=== PATIENT | female | born 1960 | race Caucasian/White ===

== ENCOUNTER → 2016-08-25 | Outpatient (CLI) | payer OTHER | LOC: CCC 08:55 | DX: E11.65 Type 2 diabetes mellitus with hyperglycemia (principal) | CPT/HCPCS: 36415; 83036 ==

== ENCOUNTER → 2017-06-10 | Outpatient (CLI) | payer OTHER ==
[2017-06-10 10:29] LABS: ABSOLUTE BASOPHILS # (AUTO) 0.1 10^3/uL (0.0-0.2); ABSOLUTE EOSINOPHILS # (AUTO) 0.2 10^3/uL (0.0-0.6); ABSOLUTE LYMPHOCYTES (AUTO) 1.6 10^3/uL (0.5-4.7); ABSOLUTE MONOCYTES (AUTO) 0.4 10^3/uL (0.1-1.4); ABSOLUTE NEUT (AUTO) 3.8 10^3/uL (1.7-8.2); BASOPHILS % (AUTO) 0.9 % (0-2); EOSINOPHILS % (AUTO) 2.7 % (0-6); HEMATOCRIT 38.6 % (36.0-47.0); HEMOGLOBIN 13.1 g/dL (12.0-15.5); MEAN CORPUSCULAR HEMOGLOBIN 31.7 pg (27.0-33.4); MEAN CORPUSCULAR HGB CONC 33.9 g/dL (32.0-36.0); MEAN CORPUSCULAR VOLUME 94 fl (80-97); MONOCYTES % (AUTO) 6.9 % (3-13); PLATELET COUNT 278 10^3/uL (150-450); RED BLOOD COUNT 4.13 10^6/uL (3.72-5.28); SEGMENTED NEUTROPHILS % (AUTO) 62.5 % (42-78); TOTAL CELLS COUNTED % (AUTO) 100 %; WHITE BLOOD COUNT 6.1 10^3/uL (4.0-10.5)
[2017-06-10 10:48] LABS: ALANINE AMINOTRANSFERASE 28 U/L (9-52); ALBUMIN 4.1 g/dL (3.5-5.0); ALKALINE PHOSPHATASE 104 U/L (38-126); ANION GAP 12 (5-19); ASPARTATE AMINO TRANSFERASE 27 U/L (14-36); BILIRUBIN,DIRECT 0.3 mg/dL (0.0-0.4); BILIRUBIN,TOTAL 0.3 mg/dL (0.2-1.3); BLOOD UREA NITROGEN 13 mg/dL (7-20); CALCIUM 10.4 mg/dL (8.4-10.2); CARBON DIOXIDE 31 mmol/L (22-30); CHLORIDE 101 mmol/L (98-107); CHOLESTEROL 247.63 mg/dL (0-200); GLUCOSE 247 mg/dL (75-110); SODIUM 144.1 mmol/L (137-145); TOTAL PROTEIN 7.1 g/dL (6.3-8.2); TRIGLYCERIDES 125 mg/dL (<150)
[2017-06-10 11:00] LABS: DIRECT LDL 132 mg/dL (<100)
== END ==
LOC: CCC 09:43
DX: R60.0 Localized edema (principal)
CPT/HCPCS: 36415; 80053; 80061; 83036; 84443; 85025

== ENCOUNTER 2017-10-10 16:40 | Emergency (ER) | payer SELFPAY ==
[2017-10-10 17:25] LABS: ABSOLUTE BASOPHILS # (AUTO) 0.1 10^3/uL (0.0-0.2); ABSOLUTE EOSINOPHILS # (AUTO) 0.1 10^3/uL (0.0-0.6); ABSOLUTE LYMPHOCYTES (AUTO) 1.8 10^3/uL (0.5-4.7); ABSOLUTE MONOCYTES (AUTO) 1.5 10^3/uL (0.1-1.4); ABSOLUTE NEUT (AUTO) 14.4 10^3/uL (1.7-8.2); BASOPHILS % (AUTO) 0.5 % (0-2); EOSINOPHILS % (AUTO) 0.5 % (0-6); HEMATOCRIT 39.8 % (36.0-47.0); HEMOGLOBIN 13.5 g/dL (12.0-15.5); MEAN CORPUSCULAR HEMOGLOBIN 32.3 pg (27.0-33.4); MEAN CORPUSCULAR HGB CONC 33.9 g/dL (32.0-36.0); MEAN CORPUSCULAR VOLUME 95 fl (80-97); MONOCYTES % (AUTO) 8.6 % (3-13); PLATELET COUNT 301 10^3/uL (150-450); RED BLOOD COUNT 4.19 10^6/uL (3.72-5.28); RED CELL DISTRIBUTION WIDTH 13.2 % (11.5-14.0); SEGMENTED NEUTROPHILS % (AUTO) 80.4 % (42-78); TOTAL CELLS COUNTED % (AUTO) 100 %; WHITE BLOOD COUNT 17.9 10^3/uL (4.0-10.5)
[2017-10-10 17:36] LABS: ALANINE AMINOTRANSFERASE 19 U/L (9-52); ALBUMIN 4.4 g/dL (3.5-5.0); ALKALINE PHOSPHATASE 107 U/L (38-126); ANION GAP 16 (5-19); ASPARTATE AMINO TRANSFERASE 21 U/L (14-36); BILIRUBIN,DIRECT 0.4 mg/dL (0.0-0.4); BILIRUBIN,TOTAL 0.4 mg/dL (0.2-1.3); BLOOD UREA NITROGEN 22 mg/dL (7-20); CALCIUM 10.2 mg/dL (8.4-10.2); CARBON DIOXIDE 26 mmol/L (22-30); CHLORIDE 97 mmol/L (98-107); CREATINE KINASE 61 U/L (30-135); GLUCOSE 161 mg/dL (75-110); POTASSIUM 3.5 mmol/L (3.6-5.0); SODIUM 138.8 mmol/L (137-145)
[2017-10-10 17:48] LABS: CREATINE KINASE MB 1.13 ng/mL (<4.55); TROPONIN I < 0.012 ng/mL
--- NOTE | 2017-10-10 18:14 | ER Document Report ---
ED Fall - General Chief Complaint: Fall Stated Complaint: FALL, RIGHT HIP PAIN Time Seen by Provider: 10/10/17 18:11 Notes: Patient has fallen twice today. She has been having problems controlling her blood sugar. Today, she was feeling dizzy and nauseated with blurred vision fell about 1:30 PM, injuring her left foot where she heard the bones "crackle". She then tried to walk with some crutches and fell a second time about 3:30 this afternoon. Patient's blood sugars were running in the 490-500 range during the times that her falling was occurring. She denies any chest pains, shortness of breath, head injury, neurologic deficits or loss of consciousness, etc. EMS was called to the scene where they checked her blood sugar and said it was 134 at about 4:30 PM this afternoon. Currently, patient complains of pain in her left hip and her left foot. TRAVEL OUTSIDE OF THE [place] IN LAST 30 DAYS: No - Related data Allergies/Adverse Reactions: No Known Allergies Allergy (Unverified 10/10/17 17:09) Past Medical History - Social History Smoking Status: Current Every Day Smoker Chew tobacco use (# tins/day): No Family History: Reviewed & Not Pertinent Patient has suicidal ideation: No Patient has homicidal ideation: No - Past Medical History Cardiac Medical History: Reports: Hx Hypercholesterolemia, Hx Hypertension Pulmonary Medical History: Reports: Hx COPD Past Surgical History: Reports: Hx Appendectomy Review of Systems - Review of Systems Notes: REVIEW OF SYSTEMS: CONSTITUTIONAL : Denies fever. EENT: Denies eye, ear, nose or mouth or throat pain or other symptoms. CARDIOVASCULAR: Denies chest pain. RESPIRATORY: Denies cough, chest congestion, or shortness of breath. GASTROINTESTINAL: Denies abdominal pain or nausea, vomiting, or diarrhea. GENITOURINARY: Denies difficulty or painful urinating, urinary frequency, blood in urine. MUSCULOSKELETAL: Denies back or neck pain. Complains of pain in the left hip and in the left ankle and left foot. Unable to bear weight on the left lower extremity because of pain. SKIN: Denies rash or skin lesions. NEUROLOGICAL: Denies LOC or altered mental status. Denies sensory loss or motor deficits. ALL OTHER SYSTEMS REVIEWED AND NEGATIVE. Physical Exam - Vital signs Vitals: Resp BP Pulse Ox 15 117/56 L 98 10/10/17 16:50 10/10/17 16:50 10/10/17 16:50 Interpretation: Normal Notes: PHYSICAL EXAMINATION: GENERAL: Well-appearing, in no acute distress. Has had 75 mics of fentanyl by EMS. Vital signs were all essentially normal. HEAD: Atraumatic, normocephalic. EYES: Pupils equal round and reactive to light, extraocular movements intact. ENT: oropharynx clear without exudates. Moist mucous membranes. NECK: Normal range of motion, supple. LUNGS: Breath sounds clear and equal bilaterally. No rib tenderness. HEART: Regular rate and rhythm without murmurs. ABDOMEN: Soft, nontender. No guarding or rebound. No masses. BACK: No tenderness throughout entire back. EXTREMITIES: Tender to palpate over the left hip joint, though no malalignment or dislocation noted. Tender with some bruising over the lateral aspect of the left lower leg which is where patient appears to have a nondisplaced fracture of the distal fibula on x-ray. NEUROLOGICAL: Normal speech. Unable to ambulate because of pain. Normal sensory, motor, and reflex exams. Awake, alert, and oriented x3. Cranial nerves normal. PSYCH: Normal mood, normal affect. SKIN: Warm, dry, no rashes. Course - Vital Signs Vital signs: Temp Pulse Resp BP Pulse Ox 97.6 F 16 114/55 L 95 10/10/17 18:00 10/10/17 19:01 10/10/17 19:00 10/10/17 19:01 - Laboratory Result Diagrams: 10/10/17 16:51 10/10/17 16:51 Laboratory results interpreted by me: 10/10/17 10/10/17 16:51 16:51 WBC 17.9 H Seg Neutrophils % 80.4 H Lymphocytes % 10.0 L Absolute Neutrophils 14.4 H Absolute Monocytes 1.5 H Potassium 3.5 L Chloride 97 L BUN 22 H Creatinine 1.58 H Est GFR ( Amer) 41 L Est GFR (Non-Af Amer) 33 L Glucose 161 H Discharge - Discharge Clinical Impression: Fall, Fracture of distal fibula Condition: Stable Disposition: HOME, SELF-CARE Additional Instructions: Fracture of Distal Fibula You have a fracture at the end of the fibula, the smaller bone in the lower leg. The fracture is across the bony bump on the outer side of the ankle. This fracture will usually heal well, but must be protected from the pull of ligaments and tendons at the ankle. If this fracture rotates out of position (or is felt likely to rotate), it must be operated on. Initially, the extremity should be kept elevated, with ice packs applied frequently. This fracture is usually treated with a cast or walking boot. If a walking boot has been selected, it's critical that it NOT be removed without the doctor's approval, not even for sleeping or baths. Healing of this fracture takes about four to eight weeks. Younger patients heal more quickly. An X-ray is usually required during healing to check for complications and to assess healing. Call the doctor or return at once if there is severe swelling, increasing pain, or numbness in the foot. ANKLE STIRRUP SPLINT: You are to use an ankle brace called a stirrup splint. This type of brace allows you to place greater stresses on the ankle without risk of re-injury, and is often used for more severe ankle injuries such as avulsion fractures and ligament ruptures. The splint can be worn over a sock or tape. For proper support, wear the splint with a shoe over it. It's important that the splint fit properly. Adjust the heel tension, if needed. If your splint has air bladders, peel back the bottom of each air bladder, then move the Velcro attachment of the heel strap up or down. Air bladder pressure can be adjusted by pulling up the valve at the top, threading the air tube down into the main bladder, then blowing air into the bladder or squeezing it out. The two sides of the stirrup can be moved forward or back on your ankle by changing the attachment of the main straps. If you are unable to use the ankle comfortably in the splint, return for re -evaluation. USE OF CRUTCHES: The doctor has recommended that you not bear weight at this time. You will need to use crutches. Adjust the crutches so the tops come to about two inches under the armpit while you are standing upright. Use your hands -- not your armpits -- to support your weight. To get into a chair, support yourself with one crutch on the injured side. Hold the chair with the other hand, then lower yourself while putting all your weight on the good leg. Going up stairs is `good leg up, step up, then bring up crutches and bad leg.' Down stairs is `bad leg and crutches down, then bring good leg down.' If you develop numbness or swelling in an arm or hand, you are using the crutches incorrectly. Return if you are having any problems with the crutches. ICE & ELEVATION: Apply ice packs frequently against the painful area. Many different schedules are recommended, such as "20 minutes on, 20 minutes off" or "one hour ice, two hours rest." If you need to work, you may need to go longer between ice treatments. You should plan to have the area ice packed AT LEAST one- fourth of the time. The ice should be applied over the wrap, tape, or splint, or over a layer of cloth -- not directly against the skin. Some ice bags have a built-in cloth and can be put directly on the skin. Your injured part should be elevated as much as possible over the next 48 hours. Try to keep the injury above the level of the heart. Avoid use of the injured area. Elevation and rest will decrease the swelling. ORAL NARCOTIC MEDICATION: You have been given a prescription for pain control. This medication is a narcotic. It's best taken with food, as nausea can result if taken on an empty stomach. Don't operate machinery or drive within six hours of taking this medication. Do not combine this medicine with alcohol, or with any medication which can cause sedation (such as cold tablets or sleeping pills) unless you get permission from the physician. Narcotics tend to cause constipation. If possible, drink plenty of fluids and eat a diet high in fiber and fruits. FOLLOW-UP CARE: If you have been referred to a physician for follow-up care, call the physician s office for an appointment as you were instructed or within the next two days. If you experience worsening or a significant change in your symptoms, notify the physician immediately or return to the Emergency Department at any time for re-evaluation. You have been referred to Dr. Sousa and Dr. Pena and their contact information is located elsewhere in these discharge instructions. Call their office Wednesday at 8:00 and set up an appointment for you to follow-up with them because this fracture of your ankle will require casting to properly treated. Prescriptions: Oxycodone HCl/Acetaminophen [Percocet 5-325 mg Tablet] 1 - 2 tab PO Q6HP PRN # 15 tablet PRN Reason: Referrals: EMILIANO PENA MD [ACTIVE STAFF] - Follow up in 3-5 days MYAH SOUSA DO [ACTIVE STAFF] - Follow up in 3-5 days
--- NOTE | 2017-10-10 18:19 | RADIOLOGY REPORT (SQ) ---
EXAM DESCRIPTION: ANKLE LEFT COMPLETE; FOOT LEFT COMPLETE; HIP LEFT AP/LATERAL COMPLETED DATE/TIME: 10/10/2017 5:44 pm REASON FOR STUDY: Fell on left side, heart left foot, ankle, hip COMPARISON: None. FINDINGS: Three views left hip: No fracture. Symmetric bilateral hip DJD. Three views left ankle: Nondisplaced oblique fracture through the distal fibula extends inferiorly t o the level of the mortise. Mortise maintained. No other fracture. Three views left foot: Osteopenia. No fracture. TECHNICAL DOCUMENTATION: JOB ID: [id number] Reading location - IP/workstation name: [email or web address]
--- NOTE | 2017-10-10 18:19 | RADIOLOGY REPORT (SQ) ---
EXAM DESCRIPTION: ANKLE LEFT COMPLETE; FOOT LEFT COMPLETE; HIP LEFT AP/LATERAL COMPLETED DATE/TIME: 10/10/2017 5:44 pm REASON FOR STUDY: Fell on left side, heart left foot, ankle, hip COMPARISON: None. FINDINGS: Three views left hip: No fracture. Symmetric bilateral hip DJD. Three views left ankle: Nondisplaced oblique fracture through the distal fibula extends inferiorly t o the level of the mortise. Mortise maintained. No other fracture. Three views left foot: Osteopenia. No fracture. TECHNICAL DOCUMENTATION: JOB ID: [id number] Reading location - IP/workstation name: [email or web address]
--- NOTE | 2017-10-10 18:19 | RADIOLOGY REPORT (SQ) ---
EXAM DESCRIPTION: ANKLE LEFT COMPLETE; FOOT LEFT COMPLETE; HIP LEFT AP/LATERAL COMPLETED DATE/TIME: 10/10/2017 5:44 pm REASON FOR STUDY: Fell on left side, heart left foot, ankle, hip COMPARISON: None. FINDINGS: Three views left hip: No fracture. Symmetric bilateral hip DJD. Three views left ankle: Nondisplaced oblique fracture through the distal fibula extends inferiorly t o the level of the mortise. Mortise maintained. No other fracture. Three views left foot: Osteopenia. No fracture. TECHNICAL DOCUMENTATION: JOB ID: [id number] Reading location - IP/workstation name: [email or web address]
[2017-10-10] MEDS ORDERED: HYDROCODONE/ACETAMINOPHEN 5-325 MG (6 TAB/ER DISP) PO PRN (18:47)
--- NOTE | 2017-10-10 19:09 | EKG REPORT ---
SEVERITY:- NORMAL ECG - SINUS RHYTHM : Confirmed by: Jomar Lane MD 10-Oct-2017 19:08:36
[2017-10-10 19:19] VITALS: BP 114/55
== END 2017-10-10 19:28 | disposition home or self-care (01) ==
LOC: ER 16:40
DX: S82.435A Nondisplaced oblique fracture of shaft of left fibula, initial encounter for closed fracture (principal); M79.672 Pain in left foot; M25.552 Pain in left hip; W19.XXXA Unspecified fall, initial encounter; F17.200 Nicotine dependence, unspecified, uncomplicated; I10 Essential (primary) hypertension; J44.9 Chronic obstructive pulmonary disease, unspecified
CPT/HCPCS: 93005; 99284; 36415; 82553; 82550; 85025; 80053; 84484; 73610; 73630; 73502; 93010; L1902

== ENCOUNTER 2018-01-29 12:27 | Emergency (ER) | payer SELFPAY ==
[~2018-01-29 12:27] MED LIST: ATROPINE SULFATE INJ 1 MG/10 ML DISP.SYRIN IV ONE; EPINEPHRINE INJ 1 MG/10 ML DISP.SYRIN ONE; SODIUM BICARBONATE 8.4% INJ 50 MEQ/50 ML DISP.SYRIN ONE
[2018-01-29] MEDS ORDERED: INSULIN REG, HUMAN 100 UNIT/ML 3 ML VIAL (PYX) ONE (12:42)
[2018-01-29] MEDS ORDERED: MIDAZOLAM HCL 50 MG/100 ML RTUINJ ONE (12:42)
--- NOTE | 2018-01-29 12:46 | ER Document Report ---
ED Resuscitation - General Mode of Arrival: Medic Information source: Emergency Med Personnel, [facility] Records Cannot obtain history due to: Unstable vital signs, Other - unresponsive TRAVEL OUTSIDE OF THE [place] IN LAST 30 DAYS: No <MARY WALKER - Last Filed: 01/29/18 19:45> <[email or web address] - Last Filed: 01/29/18 20:06> - General Stated Complaint: UNRESPONSIVE Time Seen by Provider: 01/29/18 12:27 Notes: 57-year-old female brought in by EMS for a 3-day history of vomiting and diarrhea. EMS states on arrival the patient had a blood pressure of 63/38, a heart rate in the 30s, a BGL reading "high", a rectal temperature of 85.3, and a GCS of 10. EMS states that the patient was rolling around and spontaneously opening her eyes but did not answer questions or respond to them. EMS states that the family at the house stated that the patient has been in bed for the last few days and "they thought she just had the flu". EMS states the patient was lying in bed urine and stool. EMS states in route to this facility the patient began to jean down and then became pulseless and compressions were started. EMS reports no Ventricular tachycardia or ventricular fibrillation. History is limited secondary to the patient's medical condition. (MARY WALKER) - Related Data Allergies/Adverse Reactions: No Known Allergies Allergy (Unverified 10/10/17 17:09) Past Medical History - General Information source: Emergency Med Personnel, [facility] Records Cannot obtain history due to: Unstable vital signs - Social History Smoking Status: Current Every Day Smoker Cigarette use (# per day): Yes Family History: Other - unknown - Past Medical History Cardiac Medical History: Reports: Hx Hypercholesterolemia, Hx Hypertension Pulmonary Medical History: Reports: Hx COPD Past Surgical History: Reports: Hx Appendectomy <MARY WALKER - Last Filed: 01/29/18 19:45> Review of Systems - Review of Systems -: Yes ROS unobtainable due to patient's medical condition <MARY WALKER - Last Filed: 01/29/18 19:45> Physical Exam <MARY WALKER - Last Filed: 01/29/18 19:45> - Vital signs Vitals: Resp Pulse Ox 36 H 95 01/29/18 12:28 01/29/18 12:28 - Notes Notes: PHYSICAL EXAM GENERAL: Completely unresponsive. Being manually bagged with mechanical c ompressions being performed upon arrival. Smells ketotic and of urine. HEAD: Normocephalic, atraumatic. EYES: Fixed and dilated. ENT: Dry oral mucosa. Edentulous. NECK: Trachea midline. LUNGS: Being manually bagged on arrival to ED, breath sounds bilaterally with bagging. HEART: Asystole. Mechanical compressions actively being performed. ABDOMEN: Non-distended. EXTREMITIES: No spontaneous movements. NEUROLOGICAL: GCS of 3. SKIN: Cold to the touch, dry. No rashes or lesions noted. PHYSICAL EXAM #2 performed after intubation with ROSC GENERAL: Making purposeful movements, attempting to grab ET tube with right arm. HEAD: Normocephalic, atraumatic. EYES: Equal, round, and reactive to light. ENT: Dry oral mucosa. Edentulous. NECK: Trachea midline. LUNGS: On ventilator with intermittent independent respiratory efforts. Breath sounds are clear bilaterally. HEART: Irregularly irregular. Very faint heart sounds. ABDOMEN: Non-distended. Decreased bowel sounds. EXTREMITIES: Making purposeful movements, attempting to grab ET tube with right arm. NEUROLOGICAL: E-2 V-T M-5 GCS = 7T SKIN: Cold to the touch, dry.. No rashes or lesions noted. (MARY WALKER) Course - Laboratory Result Diagrams: 01/29/18 15:53 01/29/18 12:32 <MARY WALKER - Last Filed: 01/29/18 19:45> - Laboratory Result Diagrams: 01/29/18 15:53 01/29/18 12:32 <ZAY CLIFTON - Last Filed: 01/29/18 20:06> - Re-evaluation Re-evalutation: 01/29/18 14:37 Spoke to the roofing tile sorter at [facility], Dr. High and he wants a temporary pacer put in prior to transport. States this would be an ICU patient. Dr. Syed was called, he agrees to put the pacer in if we could put the cordis in. Spoke to Dr. Boone who agrees to put the cordis in. Spoke to Dr. Blas Stone, the roofing tile sorter at [facility] who accepted the patient to his service. Will hold off on transfer until pacer is placed. at bedside has been made aware of all of this. (MARY WALKER) 01/29/18 15:54 Patient was being brought in as an altered mental status with hypothermia however upon arriving in the parking lot the patient lost pulses, EMS states that she bradycardia down and then went into an asystolic arrest. CPR was immediately started by EMS, the patient was brought inside where we continued CPR and gave her epinephrine, when we paused for a pulse check we could not feel a pulse however she did have some agonal respirations, carotid pulse was rechecked and she was found to have a pulse, initial intubation 10 attempt was unsuccessful, patient was then then bradycardia down and lost pulses, CPR was restarted, more epinephrine was given as was atropine, patient then had another pulse check performed after approximately 3 minutes and intubation was successful this time, patient did have a pulse. Levophed drip was started, patient was given some additional epinephrine for blood pressure support and heart rate support. Core temp was found to be quite low at approximately 82, bear hugger was placed, patient was started on a Versed drip for sedation. Labs were unfortunately hemolyzed several times, venous blood gas showed a pH of 6.6, lactic acid was surprisingly normal, chemistry still have not resulted back nor has the CBC, labs at bedside presently drawing, femoral central line was placed for better access, she also has 2 IVs and an IO, urinalysis shows greater than 500 glucose and 20 of ketones as well as moderate blood, 1+ bacteria as well as budding yeast, this was a cath specimen. Chest x-ray shows the ET tube is in good position, without any acute intrathoracic abnormality. Patient became progressively more bradycardic, patient was given atropine and transcutaneous pacing was started, capture was lost after some time at 70 mA so we increased to 80 mA, at this point I did call [facility] to try and arrange transfer to [facility] as I suspect the patient will likely need a permanent pacemaker although her bradycardia may well resolve when her electrolyte abnormalities resolve. Discussed with Dr. Muro as noted above, he wants a transvenous temporary pacer placed, Dr. Perez placed the pacer, Dr. Leone placed a Cordis, there were no complications. Supervisor [employer] Assembly at [facility] Dr. Blas Stone has already accepted the patient, helicopter is in route for this critically ill patient. has been apprised of the situation and the various procedures. 01/29/18 15:56 Vasopressin was added off of Dr. Perez's recommendation, Dr. Syed also added dopamine to the patient's pressor regimen. 01/29/18 20:05 This is a late entry, I was at bedside when the helicopter crew arrived, gave them signout on the patient and report on the patient, patient was transitioned over to helicopter crew equipment without difficulty. 01/29/18 20:06 Transvenous pacemaker was placed without difficulty by Dr. Perez. (ZAY CLIFTON) - Vital Signs Vital signs: Temp Pulse Resp BP Pulse Ox 90.6 F L 74 24 H 87/49 L 100 01/29/18 16:10 01/29/18 13:03 01/29/18 16:10 01/29/18 16:10 01/29/18 16:04 - Laboratory Laboratory results interpreted by me: 01/29/18 01/29/18 01/29/18 13:23 13:45 13:51 MCV MCHC RDW Band Neutrophils % PT 16.9 H Carbonic Acid ABG pH ABG pCO2 ABG pO2 ABG HCO3 ABG Total CO2 ABG O2 Saturation VBG pH 6.60 L* VBG HCO3 3.8 L Urine Protein 100 H Urine Glucose (UA) >=500 H Urine Ketones 20 H Urine Blood MODERATE H 01/29/18 01/29/18 14:36 15:53 MCV 105 H MCHC 30.9 L RDW 14.4 H Band Neutrophils % 7 H PT Carbonic Acid 0.90 L ABG pH 6.66 L* ABG pCO2 29.8 L ABG pO2 492.6 H ABG HCO3 3.3 L ABG Total CO2 4.2 L ABG O2 Saturation 99.5 H VBG pH VBG HCO3 Urine Protein Urine Glucose (UA) Urine Ketones Urine Blood Procedures - Central Line Left Femoral Consent obtained: No - unresponsive, intubated Central line pre-insertion: Sterile PPE donned, Chloraprep applied, Sterile drapes applied Central line size (Fr.): 20 Central line lumen type: Triple Ultrasound guided: Yes CM at insertion site: 18 Line secured with sutures: Yes Central line post-insertion: Blood return from lumens, Biopatch applied, Sutured, Sterile dressing applied Number of attempts: 1 Complications: No - Intubation Orotracheal Airway evaluation: Normal anatomy Intubation method: Orotracheal Blade type: Oscar Blade size: 4 ETT size: 8.0 ETT secured at: Gums ETT secured at (cm): 21 Breath Sounds after Intubation: Equal End tidal CO2 confirmed: Yes Ventilator settings: SIMV Tidal volume: 450 FiO2: 100 Respirations: 18 Pressure support: 8 PEEP: 10] Post Intubation Xray: Yes Intubation Complications: Oral-unsuccessful attempt. No: Vomited, Apparent aspiration <ZAY CLIFTON - Last Filed: 01/29/18 20:06> - Intubation Orotracheal Notes: 01/29/18 16:12 Initial attempt with a 4 Terrell was unsuccessful, second attempt with a 4 MAC was successful. (ZAY CLIFTON) Critical Care Note - Critical Care Note Total time excluding time spent on procedures (mins): 120 <ZAY CLIFTON - Last Filed: 01/29/18 20:06> Discharge <MARY WALKER - Last Filed: 01/29/18 19:45> <ZAY CLIFTON - Last Filed: 01/29/18 20:06> - Discharge Clinical Impression: Cardiac arrest, Septic shock, Asystole, Encounter for management of temporary cardiac pacemaker, Mechanical capture of ventricle after temporary pacing, Vomiting and diarrhea, Acidosis Hypothermia Qualifiers: Encounter type: initial encounter Qualified Code(s): T68.XXXA - Hypothermia, initial encounter Hyperglycemia due to type 2 diabetes mellitus Qualifiers: Diabetes mellitus correction insulin use: with correction use Qualified Code(s): E11.65 - Type 2 diabetes mellitus with hyperglycemia Condition: Critical Disposition: [facility] Referrals: [facility] [Primary Care Provider] - Follow up as needed Scribe Attestation: 01/29/18 20:06 I personally performed the services described in the documentation, reviewed and edited the documentation which was dictated to the scribe in my presence, and it accurately records my words and actions. (ZAY CLIFTON) Scribe Documentation - Scribe Written by Scribe:: Jaren Dickens, 01/29/2018 [id number] acting as scribe for :: Yazmin <MARY WALKER - Last Filed: 01/29/18 19:45>
[2018-01-29] MEDS ORDERED: ATROPINE SULFATE INJ 1 MG/1 ML VIAL ONE (12:57)
--- NOTE | 2018-01-29 13:10 | RADIOLOGY REPORT (SQ) ---
EXAM DESCRIPTION: CHEST SINGLE VIEW COMPLETED DATE/TIME: 01/29/2018 12:59 pm REASON FOR STUDY: INTUBATED COMPARISON: 09/13/2013 EXAM PARAMETERS: NUMBER OF VIEWS: 1 TECHNIQUE: Single frontal radiographic view of the chest acquired. RADIATION DOSE: NA LIMITATIONS: None. FINDINGS: LUNGS AND PLEURA: No opacities, masses or pneumothorax. No pleural effusion. MEDIASTINUM AND HILAR STRUCTURES: No masses. Contour normal. HEART AND VASCULAR STRUCTURES: Heart normal in size. Normal vasculature. BONES: No acute findings. HARDWARE: None in the chest. OTHER: Endotracheal tube is positioned below the thoracic inlet. Defibrillator pads are applied abou t the chest. IMPRESSION: Endotracheal tube is positioned with tip below the thoracic inlet. No acute abnormality of the lungs in AP projection. TECHNICAL DOCUMENTATION: JOB ID: [id number] [employer]- All Rights Reserved Reading location - IP/workstation name: [email or web address]
[2018-01-29] MEDS ORDERED: PIPERACILLIN/TAZOBACTAM 4.5 GM VIAL IV ONE (13:25)
[2018-01-29 13:46] LABS: VENOUS BLOOD BASE EXCESS -34.4 mmol/L; VENOUS BLOOD HCO3 3.8 mmol/L (20-32); VENOUS BLOOD PCO2 39.3 mmHg (35-63)
[2018-01-29 13:50] LABS: VENOUS BLOOD PH 6.6 (7.30-7.42)
[2018-01-29 14:03] LABS: INTERNATIONAL RATION (INR) 1.31; PROTHROMBIN TIME 16.9 SEC (11.4-15.4)
[2018-01-29 14:36] LABS: APPEARANCE,URINE TURBID; BILIRUBIN,URINE NEGATIVE (NEGATIVE); COLOR,URINE YELLOW; GLUCOSE, URINE >=500 mg/dL (NEGATIVE); KETONES,URINE 20 mg/dL (NEGATIVE); LEUKOCYTE ESTERASE,URINE NEGATIVE (NEGATIVE); NITRITE,URINE NEGATIVE (NEGATIVE); PROTEIN,URINE 100 mg/dL (NEGATIVE); URINE SPECIFIC GRAVITY 1.016; UROBILINOGEN,URINE NEGATIVE mg/dL (<2.0)
[2018-01-29] MEDS ORDERED: PHENYLEPHRINE HCL INJ/PF 10 MG/1 ML SDV ONE (14:40)
[2018-01-29] MEDS ORDERED: DOPAMINE HCL/DEXTROSE 5%-WATER 800 MG/250 ML RTUINJ IV ONE (14:43)
[2018-01-29] MEDS ORDERED: NOREPINEPHRINE BITARTRATE INJ/PF 4 MG/4 ML SDV IV ONE (14:52)
--- NOTE | 2018-01-29 15:29 | Operative Report ---
Nonrecallable Operative Report DATE OF SURGERY: 01/29/18 PREOPERATIVE DIAGNOSIS: Life-threatening arrhythmia, need for central venous access to place pacemaker. POSTOPERATIVE DIAGNOSIS: Same as above OPERATION: 1. Ultrasound-guided central venous puncture. 2. Right internal jugular vein 6 Pakistani vascular access sheath placement. SURGEON: FERCHO YUEN ANESTHESIA: Local TISSUE REMOVED OR ALTERED: None COMPLICATIONS: None apparent ESTIMATED BLOOD LOSS: Minimal PROCEDURE: Drains/implants: 6 Pakistani vascular access sheath in the right internal jugular vein. Procedure in detail: After informed consent was obtained from the patient's family she was laid in the Trendelenburg position in the ER. The right internal jugular vein was identified with the ultrasound device. It was compressible with normal flow. Under direct ultrasonic guidance a vascular access needle was inserted into the lumen of the right internal jugular vein. Dark venous, nonpulsatile blood was returned in the syringe. The wire was inserted into the vein. The wire was confirmed to be within the lumen of the vein using the ultrasound device. Next a 6 Pakistani vascular access sheath was inserted into the vein, over the wire, using a modified Seldinger technique. The catheter was sutured to the skin. The catheter was aspirated and flushed easily. The catheter returned dark venous, nonpulsatile blood. The procedure was then handed over to Dr. Perez, who was preparing to introduce a pacemaker. Condition: Critical.
[2018-01-29] MEDS ORDERED: DEXTROSE 5%-WATER 250 ML with VASOPRESSIN 100 UNIT IV PRN ×2 (15:43)
[2018-01-29] MEDS ORDERED: VASOPRESSIN INJ 20 UNIT/1 ML VIAL ONE (15:43)
[2018-01-29] MEDS ORDERED: NORMAL SALINE 1000 ML 1,000 ML IV ONE (15:50)
[2018-01-29] MEDS ORDERED: NORMAL SALINE 1000 ML 1,000 ML IV PRN (15:50)
[2018-01-29 15:58] LABS: HEMATOCRIT 42.6 % (36.0-47.0); HEMOGLOBIN 13.2 g/dL (12.0-15.5); MEAN CORPUSCULAR HEMOGLOBIN 32.4 pg (27.0-33.4); MEAN CORPUSCULAR HGB CONC 30.9 g/dL (32.0-36.0); MEAN CORPUSCULAR VOLUME 105 fl (80-97); PLATELET COUNT 179 10^3/uL (150-450); RED BLOOD COUNT 4.06 10^6/uL (3.72-5.28); RED CELL DISTRIBUTION WIDTH 14.4 % (11.5-14.0); WHITE BLOOD COUNT 9.9 10^3/uL (4.0-10.5)
[2018-01-29 16:14] LABS: ABSOLUTE LYMPHOCYTES# (MANUAL) 2.3 10^3/uL (0.5-4.7); ABSOLUTE MONOCYTES # (MANUAL) 0.5 10^3/uL (0.1-1.4); ABSOLUTE NEUTROPHILS# (MANUAL) 7.1 10^3/uL (1.7-8.2); BAND NEUTROPHILS % (MANUAL) 7 % (3-5); BASOPHILS % (MANUAL) 0 % (0-2); EOSINOPHILS % (MANUAL) 0 % (0-6); LYMPHOCYTES % (MANUAL) 23 % (13-45); MONOCYTES % (MANUAL) 5 % (3-13); SEGMENTED NEUTROPHILS % (MAN) 65 % (42-78); TOTAL CELLS COUNTED 100
[2018-01-29 16:15] LABS: PLATELET COMMENT ADEQUATE
[2018-01-29 16:16] VITALS: BP 87/49
[2018-01-29 16:52] LABS: ARTERIAL BLOOD BASE EXCESS -33.1 mmol/L; ARTERIAL BLOOD HCO3 3.3 mmol/L (20-24); ARTERIAL BLOOD O2 SATURATION 99.5 % (94-98); ARTERIAL BLOOD PCO2 29.8 mmHg (35-45); ARTERIAL BLOOD PO2 492.6 mmHg (80-100); ARTERIAL BLOOD TOTAL CO2 4.2 mmol/L (21-25)
[2018-01-29 16:53] LABS: ARTERIAL BLOOD FIO2 100%
[2018-01-29 16:54] LABS: ARTERIAL BLOOD PH 6.66 (7.35-7.45)
[2018-01-29] MEDS ORDERED: PROPOFOL 1,000 MG/100 ML INFUS..BTL IV ONE (16:58)
--- NOTE | 2018-01-29 20:09 | Progress Note ---
Provider Note Provider Note: CARDIOLOGY PROCEDURE NOTE by Dr. Amisha Perez on 01/29/2018. REASON FOR PROCEDURE: Emergent temporary transvenous pacemaker placement requested by the ER physician, for the patient who is status post cardiac arrest, with the hypotension, and symptomatic bradycardia on external pacer. Temporary transvenous pacemaker requested to stabilize the patient in route to transfer to [facility]. Tissue Removed: None. Blood Loss: None. PROCEDURE: 5 Jordanian balloon pacemaker catheter introduction into the right ventricle under the guidance of fluoroscopy. VIDEO NETWORK ENGINEER: Dr. Amisha Perez. PROCEDURE: Although it was an emergency, the was at the bedside, and informed consent was obtained from him explaining the risks and benefits of temporary transvenous pacemaker placement. The risk of being vascular trauma, perforation of the heart, arrhythmias, need for CPR, and infection. The benefit was stabilizing the patient in transport to a tertiary care facility. The verbalizes understanding. A 6 Jordanian sheath was floated by Dr. Leone, the surgical list, with aseptic technique and sterile precautions. Through this 6 Jordanian sheath, a 5 Jordanian balloon tipped pacemaker electrode catheter was floated into the RV under fluoroscopic guidance. There was good capture with the capture being lost to the MA of less than 1. This sheath and the pacemaker electrodes were sutured in place and dressing applied. The temporary transvenous pacemaker was placed at a rate of 70 bpm, with a MA of 3, and a asynchronous mode, since the patient had no underlying rhythm. The external pacemaker was discontinued at the point when the temporary transvenous pacemaker started functioning well. SUCCESSFUL placement of transvenous temporary pacemaker placement. Review of the chest showed that there was no pneumothorax by fluoroscopy, and the pacemaker was in good placement in the right ventricle. Note that the patient initially was on 16 mcg/min of of Levophed. Her blood pressure was in the 80 systolic, and dropped dopamine at 5 mcg/kg/min and increased to 10 mcg/kg/min. Also recommended starting the patient on vasopressin. Discussed with the ER physician Dr. Arce. Note 15 minutes spent on this patient for placement of the temporary transvenous pacemaker after the 6 Jordanian sheath was placed by Dr. Leone.
--- NOTE | 2018-01-30 08:12 | RADIOLOGY REPORT (SQ) ---
EXAM DESCRIPTION: FLUORO/CV PLACEMENT COMPLETED DATE/TIME: 01/29/2018 7:39 pm REASON FOR STUDY: SEPSIS, DKA TRAUMA 1 COMPARISON: None. FLUOROSCOPY TIME: 2.5 3 images saved to PACS. TECHNIQUE: Intra-operative images acquired during surgical procedure to evaluate progress. NUMBER OF IMAGES: 3 LIMITATIONS: None. FINDINGS: Cv placement. IMPRESSION: IMAGE(S) OBTAINED DURING PROCEDURE. COMMENT: Quality ID [id number]: Final reports for procedures using fluoroscopy that document radiation exp osure indices, or exposure time and number of fluorographic images (if radiation exposure indices are not available) Please consult full operative report of the attending physician for description of the procedure. TECHNICAL DOCUMENTATION: JOB ID: [id number] [employer]- All Rights Reserved Reading location - IP/workstation name: [email or web address]
--- NOTE | 2018-01-31 13:30 | EKG REPORT ---
SEVERITY:- ABNORMAL ECG - ATRIAL FIBRILLATION RUN OF VENTRICULAR PREMATURE COMPLEXES vs artifacts IVCD REC REPEAT EKG : Confirmed by: Phoebe Mccracken 31-Jan-2018 13:29:58
== END 2018-01-29 16:18 | disposition short-term general hospital (02) ==
LOC: ER 12:27
DX: A41.9 Sepsis, unspecified organism (principal); R65.21 Severe sepsis with septic shock; T68.XXXA Hypothermia, initial encounter; I46.9 Cardiac arrest, cause unspecified; E11.65 Type 2 diabetes mellitus with hyperglycemia; Z79.4 Long term (current) use of insulin; R11.10 Vomiting, unspecified; R19.7 Diarrhea, unspecified; I10 Essential (primary) hypertension; J44.9 Chronic obstructive pulmonary disease, unspecified; F17.210 Nicotine dependence, cigarettes, uncomplicated
CPT/HCPCS: 31500; 36556; 93005; 99291; 99292; 92950; 51702; 96365; 96366; 96368; 36415; 87040; 87086; 82962; 82803 ×2; 85025; 85610; 87088; 81001; 83605; 71045; 77001; 94660; 93010; C1751; C1894; J0461; J1265; J0171; J3490 ×2; 51701; 94002; 96375

== ENCOUNTER → 2018-02-17 | Outpatient (CLI) | payer MEDICAID ==
[2018-02-17 09:21] LABS: APPEARANCE,URINE SLIGHTLY-CLOUDY; BILIRUBIN,URINE NEGATIVE (NEGATIVE); COLOR,URINE YELLOW; GLUCOSE, URINE 50 mg/dL (NEGATIVE); KETONES,URINE NEGATIVE (NEGATIVE); LEUKOCYTE ESTERASE,URINE NEGATIVE (NEGATIVE); NITRITE,URINE NEGATIVE (NEGATIVE); PROTEIN,URINE NEGATIVE (NEGATIVE); URINE SPECIFIC GRAVITY 1.013; UROBILINOGEN,URINE NEGATIVE mg/dL (<2.0)
[2018-02-19 09:33] LABS: HEMATOCRIT 26.8 % (36.0-47.0); HEMOGLOBIN 9.1 g/dL (12.0-15.5); MEAN CORPUSCULAR HEMOGLOBIN 33.1 pg (27.0-33.4); PLATELET COUNT 593 10^3/uL (150-450); RED BLOOD COUNT 2.75 10^6/uL (3.72-5.28); RED CELL DISTRIBUTION WIDTH 15.2 % (11.5-14.0); WHITE BLOOD COUNT 4.7 10^3/uL (4.0-10.5)
[2018-02-19 09:41] LABS: MEAN CORPUSCULAR VOLUME 97 fl (80-97)
[2018-02-19 09:58] LABS: ANION GAP 7 (5-19); BLOOD UREA NITROGEN 10 mg/dL (7-20); CALCIUM 9.8 mg/dL (8.4-10.2); CARBON DIOXIDE 26 mmol/L (22-30); CHLORIDE 108 mmol/L (98-107); GLUCOSE 130 mg/dL (75-110); POTASSIUM 4.7 mmol/L (3.6-5.0); SODIUM 140.5 mmol/L (137-145)
== END ==
LOC: OD 08:09
PROVIDERS: ATTEND Internal Medicine Nephrology
DX: N18.4 Chronic kidney disease, stage 4 (severe) (principal)
CPT/HCPCS: 36415; 80048; 81001; 85027

== ENCOUNTER 2018-02-23 12:01 | Emergency (ER) | payer MEDICAID ==
--- NOTE | 2018-02-23 13:05 | ER Document Report ---
ED Medical Screen (RME) - General Chief Complaint: Foot Pain Stated Complaint: TOES ON RIGHT FOOT DISCOLORED Time Seen by Provider: 02/23/18 12:57 Notes: 4-year-old female to the emergency department for evaluation of abnormal coloring of several digits on the right foot. Patient is a type I diabetic. Recent DKA and life support. Began noticing changes to her digits several days ago. Foot is extremely swollen. I have greeted and performed a rapid initial assessment of this patient. A comprehensive ED assessment and evaluation of the patient, analysis of test results and completion of the medical decision making process will be conducted by additional ED providers. TRAVEL OUTSIDE OF THE [place] IN LAST 30 DAYS: No - Related Data Allergies/Adverse Reactions: No Known Allergies Allergy (Verified 02/23/18 12:02) Past Medical History - Past Medical History Cardiac Medical History: Reports: Hx Hypercholesterolemia, Hx Hypertension Pulmonary Medical History: Reports: Hx COPD Renal/ Medical History: Denies: Hx Peritoneal Dialysis Past Surgical History: Reports: Hx Appendectomy Physical Exam - Vital signs Vitals: Temp Pulse Resp BP Pulse Ox 98.2 F 107 H 18 140/63 H 100 02/23/18 12:09 02/23/18 12:09 02/23/18 12:09 02/23/18 12:09 02/23/18 12:09 Course - Vital Signs Vital signs: Temp Pulse Resp BP Pulse Ox 98.2 F 107 H 18 140/63 H 100 02/23/18 12:09 02/23/18 12:09 02/23/18 12:09 02/23/18 12:09 02/23/18 12:09 Doctor's Discharge - Discharge Referrals: Jignesh SIMMONS MD [Primary Care Provider] - Follow up as needed
--- NOTE | 2018-02-23 14:01 | RADIOLOGY REPORT (SQ) ---
EXAM DESCRIPTION: FOOT RIGHT COMPLETE COMPLETED DATE/TIME: 02/23/2018 1:38 pm REASON FOR STUDY: isch digits , forefoot pain and swelling COMPARISON: None. NUMBER OF VIEWS: Three views. TECHNIQUE: AP, lateral and oblique radiographic images acquired of the right foot. LIMITATIONS: None. FINDINGS: MINERALIZATION: Osteopenic BONES: Acute spiral fracture, nondisplaced, nonangulated right 5th toe proximal phalanx mid diaphysis marked with a seneca. No other fractures are identified. No aggressive bony demineralization worrisome for osteomyelitis. JOINTS: No malalignment SOFT TISSUES: Diffuse forefoot soft tissue swelling. No foreign body. OTHER: No other significant finding. IMPRESSION: Acute spiral fracture nondisplaced nonangulated, right 5th toe proximal phalanx mid diap hysis TECHNICAL DOCUMENTATION: JOB ID: [id number]- All Rights Reserved Reading location - IP/workstation name: [email or web address]
[2018-02-23 14:33] LABS: ABSOLUTE EOSINOPHILS # (AUTO) 0.3 10^3/uL (0.0-0.6); ABSOLUTE LYMPHOCYTES (AUTO) 1.4 10^3/uL (0.5-4.7); ABSOLUTE MONOCYTES (AUTO) 0.3 10^3/uL (0.1-1.4); BASOPHILS % (AUTO) 0.4 % (0-2); EOSINOPHILS % (AUTO) 6.2 % (0-6); HEMATOCRIT 30.9 % (36.0-47.0); HEMOGLOBIN 10.4 g/dL (12.0-15.5); LYMPHOCYTES % (AUTO) 27.6 % (13-45); MEAN CORPUSCULAR HGB CONC 33.6 g/dL (32.0-36.0); MEAN CORPUSCULAR VOLUME 98 fl (80-97); MONOCYTES % (AUTO) 6.2 % (3-13); PLATELET COUNT 550 10^3/uL (150-450); RED BLOOD COUNT 3.14 10^6/uL (3.72-5.28); RED CELL DISTRIBUTION WIDTH 15.7 % (11.5-14.0); SEGMENTED NEUTROPHILS % (AUTO) 59.6 % (42-78); TOTAL CELLS COUNTED % (AUTO) 100 %
[2018-02-23 14:55] LABS: ALANINE AMINOTRANSFERASE 25 U/L (9-52); ALBUMIN 4.4 g/dL (3.5-5.0); ALKALINE PHOSPHATASE 177 U/L (38-126); ANION GAP 8 (5-19); ASPARTATE AMINO TRANSFERASE 24 U/L (14-36); BILIRUBIN,DIRECT 0.2 mg/dL (0.0-0.4); BILIRUBIN,TOTAL 0.3 mg/dL (0.2-1.3); BLOOD UREA NITROGEN 11 mg/dL (7-20); C-REACTIVE PROTEIN 13.5 mg/L (<10.0); CALCIUM 10.4 mg/dL (8.4-10.2); CARBON DIOXIDE 28 mmol/L (22-30); CHLORIDE 102 mmol/L (98-107); GLUCOSE 203 mg/dL (75-110); POTASSIUM 4.5 mmol/L (3.6-5.0); SODIUM 137.9 mmol/L (137-145); TOTAL PROTEIN 7.2 g/dL (6.3-8.2)
[2018-02-23] MEDS ORDERED: ONDANSETRON HCL INJ/PF 4 MG/2 ML SDV IV ONE (17:47)
[2018-02-23] MEDS ORDERED: FENTANYL CITRATE INJ/PF 100 MCG/2 ML AMPUL IV ONE (17:47)
[2018-02-23] MEDS ORDERED: HYDROMORPHONE HCL INJ/PF 2 MG/ML AMPULE IV ONE (18:55)
[2018-02-23] MEDS ORDERED: VANCOMYCIN HCL INJ 1000 MG VIAL IV ONE (18:55)
[2018-02-23] MEDS ORDERED: PIPERACILLIN/TAZOBACTAM 3.375 GM VIAL IV ONE (18:55)
--- NOTE | 2018-02-23 20:34 | ER Document Report ---
ED Extremity Problem, Lower - General Chief Complaint: Foot Pain Stated Complaint: TOES ON RIGHT FOOT DISCOLORED Time Seen by Provider: 02/23/18 12:57 Notes: Patient is a 58-year-old female with uncontrolled diabetes and hypertension hyperlipidemia, that presents to the emergency department for chief complaint of right toe pain. Patient states that several of her toes on her right foot have been turning blue and black over the last several weeks, has been getting worse, she was discharged from another institution 3 weeks ago, she was rather ill at that time, was in the ICU, for DKA, and what sounds like possible cardiac problems and was on pressors. She states she noticed that her toes were painful towards the end of her discharge, and they were treated with local wound care, while at home, things seem to get worse, but she did not seek medical attention until today. She describes the pain she is having a severe aching sensation that is constant in her second through fourth toes. Of the right foot, she is not exactly sure when they started to turn black. She is overall a poor historian. She denies any any redness streaking up her leg, denies fevers, chills, nausea, vomiting, chest pain, shortness of breath or difficulty breathing. Past Medical History: Uncontrolled diabetes, hyperlipidemia, hypertension Past Surgical History: Denies recent or pertinent surgical history Social History: Admits to smoking cigarettes daily, denies alcohol or drug use. Family History: Reviewed and noncontributory for presenting illness Allergies: Reviewed, see documented allergy list. REVIEW OF SYSTEMS: Other than noted above, the 12 point review of systems was reviewed with the patient and were negative, all pertinent findings are included in the HPI. PHYSICAL EXAMINATION: Vital signs reviewed, nursing noted reviewed. GENERAL: Patient appears older than stated age, and uncomfortable HEAD: Atraumatic, normocephalic. EYES: Eyes appear normal, extraocular movements intact, sclera anicteric, conjunctiva are normal. ENT: nares patent, oropharynx clear without exudates. Moist mucous membranes. NECK: Normal range of motion, supple without lymphadenopathy LUNGS: Breath sounds clear to auscultation bilaterally and equal. No wheezes rales or rhonchi. HEART: Regular rate and rhythm without murmurs ABDOMEN: Soft, nontender, normoactive bowel sounds. No rebound, guarding, or rigidity. No masses appreciated. EXTREMITIES: The right second and third toes, appear necrotic, and dry gangrene of the distal portions, and are otherwise erythematous and tender to palpate more proximally, the fourth right toe, is erythematous, there is an open wound on the dorsal aspect, and is also tender to palpate. She has palpable popliteal pulses, there are palpable PT pulses as well, and DP pulses, and seem to be equal bilaterally. No significant peripheral edema in either extremity. Sensation is absent over the areas of necrosis. NEUROLOGICAL: Moves all extremities spontaneously Motor and sensory grossly intact on exam, with the exception of the very distal portions where the patient has dry gangrene of the tips of the second and third digits of the right foot. PSYCH: Normal mood, normal affect. SKIN: Warm, Dry, normal turgor, no rashes or lesions noted on exposed skin TRAVEL OUTSIDE OF THE [place] IN LAST 30 DAYS: No - Related Data Allergies/Adverse Reactions: No Known Allergies Allergy (Verified 02/23/18 12:02) Past Medical History - Social History Smoking Status: Current Every Day Smoker Frequency of alcohol use: None Drug Abuse: None Family History: CAD, Malignancy, Other - unknown Patient has suicidal ideation: No Patient has homicidal ideation: No - Past Medical History Cardiac Medical History: Reports: Hx Hypercholesterolemia, Hx Hypertension Pulmonary Medical History: Reports: Hx COPD Endocrine Medical History: Reports: Hx Diabetes Mellitus Type 1 Renal/ Medical History: Denies: Hx Peritoneal Dialysis Past Surgical History: Reports: Hx Appendectomy Physical Exam - Vital signs Vitals: Temp Pulse Resp BP Pulse Ox 98.2 F 107 H 18 140/63 H 100 02/23/18 12:09 02/23/18 12:09 02/23/18 12:09 02/23/18 12:02/23/18 12:09 Course - Re-evaluation Re-evalutation: Patient seen and examined vital signs reviewed. Laboratory data and imaging were ordered as appropriate for the patient's presenting symptoms and complaint, with consideration of any critical or life threatening conditions that may be associated with their obtained history and exam as noted above. Patient was treated with IV pain medication fluid, and was given a dose of Zosyn and vancomycin Results were reviewed when available and demonstrated x-ray demonstrated a fracture of the fifth digit of the right toe, but otherwise unremarkable, blood work did not demonstrate acute renal failure, there is a mild anemia, which appears to be chronic for this patient, but otherwise was unremarkable, I feel that the patient is suffering from dry gangrene, possibly from thromboembolic event, versus secondary to pressors that she was on while in the hospital and in the ICU, did consult surgery to evaluate this, they were concerned about possible thromboembolism as well, and was concerned that an amputation of the toes would not solve that issue, and should ultimately be seen by vascular surgeon, I called the vascular surgeon, that works at the hospital where the patient was seen in the ICU, Dr. Terrazas, who stated he could see the patient in the office, for further workup, I advised the patient to be started on aspirin, which she is agreeable. The patient was re-evaluated and was stable, and discharged to follow-up with an appointment tomorrow with the vascular surgeon, she was encouraged highly to not miss this appointment. Evaluation was most consistent with gangrene of the toes of the right foot Results were discussed with the patient at this point, after careful consideration I feel that that patient can be discharged from the emergency d epartment, the patient was educated treatments and reasons to return to the emergency department based on their presumed diagnosis as noted above, they were advised to followup with a primary care physician in 2-3 days. Patient was agreeable to plan of care. *Note is created using voice recognition software and may contain spelling, syntax or grammatical errors. Laboratory 02/23/18 02/23/18 02/23/18 14:05 14:05 19:42 WBC 5.0 RBC 3.14 L Hgb 10.4 L Hct 30.9 L MCV 98 H MCH 33.0 MCHC 33.6 RDW 15.7 H Plt Count 550 H Seg Neutrophils % 59.6 Lymphocytes % 27.6 Monocytes % 6.2 Eosinophils % 6.2 H Basophils % 0.4 Absolute Neutrophils 3.0 Absolute Lymphocytes 1.4 Absolute Monocytes 0.3 Absolute Eosinophils 0.3 Absolute Basophils 0.0 Sodium 137.9 Potassium 4.5 Chloride 102 Carbon Dioxide 28 Anion Gap 8 BUN 11 Creatinine 0.48 L Est GFR ( Amer) > 60 Est GFR (Non-Af Amer) > 60 Glucose 203 H POC Glucose 236 H Calcium 10.4 H Total Bilirubin 0.3 Direct Bilirubin 0.2 Neonat Total Bilirubin Not Reportable Neonat Direct Bilirubin Not Reportable Neonat Indirect Bili Not Reportable AST 24 ALT 25 Alkaline Phosphatase 177 H C-Reactive Protein 13.5 H Total Protein 7.2 Albumin 4.4 Foot X-Ray 02/23/18 13:06 IMPRESSION: Acute spiral fracture nondisplaced nonangulated, right 5th toe proximal phalanx mid diaphysis - Vital Signs Vital signs: Temp Pulse Resp BP Pulse Ox 98.2 F 105 H 18 133/67 H 97 02/23/18 22:33 02/23/18 22:33 02/23/18 22:33 02/23/18 22:33 02/23/18 22:33 - Laboratory Result Diagrams: 02/23/18 14:05 02/23/18 14:05 Laboratory results interpreted by me: 02/23/18 02/23/18 02/23/18 14:05 14:05 19:42 RBC 3.14 L Hgb 10.4 L Hct 30.9 L MCV 98 H RDW 15.7 H Plt Count 550 H Eosinophils % 6.2 H Creatinine 0.48 L Glucose 203 H POC Glucose 236 H Calcium 10.4 H Alkaline Phosphatase 177 H C-Reactive Protein 13.5 H Critical Care Note - Critical Care Note Total time excluding time spent on procedures (mins): 34 Comments: Critical care time 34 minutes exclusive from separate billable procedures for a patient requiring complex medical decision making, and high potential for clinical deterioration. In a patient with gangrene of several toes on the right foot, multiple consultations, and frequent reassessments, and evaluations, and acute treatment, with high potential of loss of limb. Time spent obtaining history from patient or surrogate, discussions with consultants, development of treatment plan with patient or surrogate, evaluation of patient's response to treatment, examination of patient, ordering and performing treatments and interventions, ordering and review of laboratory studies, re-evaluation of patient's condition, ordering and review of radiographic studies and review of old charts Discharge - Discharge Clinical Impression: Gangrene of toe of right foot Anemia Qualifiers: Anemia type: unspecified type Qualified Code(s): D64.9 - Anemia, unspecified Fracture of fifth toe, right, closed Qualifiers: Encounter type: initial encounter Qualified Code(s): S92.501A - Displaced unspecified fracture of right lesser toe(s), initial encounter for closed fracture Condition: Stable Disposition: HOME, SELF-CARE Additional Instructions: You have what we call gangrene of the foot, in your toes, you need to follow-up with the vascular surgeon, you may need an amputation of your foot, but you need to be evaluated with them, Dr. Terrazas will see you tomorrow in his office, you need to call in the morning, to schedule a time that is convenient for you, their phone number is listed with the paperwork, as well as the address to the office. Please do not miss this appointment, it is very important that you follow-up with them, as this could get worse and potentially cause more issues up your foot and into the leg. Referrals: Jignesh SIMMONS MD [Primary Care Provider] - Follow up as needed REEMA TERRAZAS MD [NO LOCAL MD] - Follow up tomorrow
--- NOTE | 2018-02-23 20:40 | PDOC CONSULTATION ---
Consultation Consult Date: 02/23/18 Consult reason:: right toes wet gangrene History of Present Illness Admission Date/PCP: Jignesh SIMMONS MD Patient complains of: REDNESS, DARKENING OF RIGHT TOES History of Present Illness: ISRAEL DIA is a 58 year old female diabetic, with severe cardia disease, s/p cardiac arrest for unknown reason in January 2018, tansferred to [facility] after her cardiac events (for possible pacemaker placement) who comes with a c/o right toes (2, 3, 4) redness, drainage, skin blistering, and skin black discoloration. According to the patient, these toe skin changes have occurred since she was released from the outside institution with worsening of the toe appearance while at home. She denies any pain fever, or other systemic symptoms. Past Medical History Cardiac Medical History: Reports: Hyperlipidema, Hypertension Pulmonary Medical History: Reports: Chronic Obstructive Pulmonary Disease (COPD) Endocrine Medical History: Reports: Diabetes Mellitus Type 1 Past Surgical History Past Surgical History: Reports: Appendectomy Social History Smoking Status: Current Every Day Smoker Family History Family History: CAD, Malignancy, Other - unknown Parental Family History Reviewed: Yes Children Family History Reviewed: Yes Sibling(s) Family History Reviewed.: Yes Medication/Allergy Home Medications: Oxycodone HCl/Acetaminophen [Percocet 5-325 mg Tablet] 1 - 2 tab PO Q6HP PRN #15 tablet 10/10/17 Allergies/Adverse Reactions: No Known Allergies Allergy (Verified 02/23/18 12:02) Physical Exam Vital Signs: Temp Pulse Resp BP Pulse Ox 98.2 F 108 H 18 146/72 H 98 02/23/18 12:09 02/23/18 19:53 02/23/18 19:53 02/23/18 19:53 02/23/18 19:53 Intake & Output 02/22/18 02/23/18 02/24/18 06:59 06:59 06:59 Weight 65 kg General appearance: PRESENT: no acute distress Head exam: PRESENT: atraumatic Eye exam: PRESENT: EOMI Mouth exam: PRESENT: dry mucosa, neck supple Neck exam: PRESENT: full ROM Respiratory exam: PRESENT: clear to auscultation jesusita Cardiovascular exam: PRESENT: RRR Vascular exam: PRESENT: other - palpable right DP, foot warm GI/Abdominal exam: PRESENT: soft Rectal exam: PRESENT: deferred Extremities exam: PRESENT: full ROM, other - right staecy 2, 3,and 4 toes with erythema, blistering, and necrosis of skin of tip of 2nd toe; partial skin gangrene 3rd toe, blistering and ulceration 4th toe. No erythema of the foot (volar/dorsal surface) Musculoskeletal exam: PRESENT: full ROM Neurological exam: PRESENT: alert, altered Results Laboratory Results: 02/23/18 14:05 02/23/18 14:05 02/23/18 02/23/18 14:05 14:05 WBC 5.0 RBC 3.14 L Hgb 10.4 L Hct 30.9 L MCV 98 H MCH 33.0 MCHC 33.6 RDW 15.7 H Plt Count 550 H Seg Neutrophils % 59.6 Lymphocytes % 27.6 Monocytes % 6.2 Eosinophils % 6.2 H Basophils % 0.4 Absolute Neutrophils 3.0 Absolute Lymphocytes 1.4 Absolute Monocytes 0.3 Absolute Eosinophils 0.3 Absolute Basophils 0.0 Sodium 137.9 Potassium 4.5 Chloride 102 Carbon Dioxide 28 Anion Gap 8 BUN 11 Creatinine 0.48 L Est GFR ( Amer) > 60 Est GFR (Non-Af Amer) > 60 Glucose 203 H Calcium 10.4 H Total Bilirubin 0.3 AST 24 ALT 25 Alkaline Phosphatase 177 H C-Reactive Protein 13.5 H Total Protein 7.2 Albumin 4.4 Impressions: Foot X-Ray 02/23/18 13:06 IMPRESSION: Acute spiral fracture nondisplaced nonangulated, right 5th toe proximal phalanx mid diaphysis Assessment & Plan - Diagnosis (1) Gangrene of toe of right foot Is this a current diagnosis for this admission?: Yes - Plan Summary Plan Summary: A/ 2,3,and 4 right toe gangrene, cellulitis with blistering slowly occurring during past 3-4 weeks Xray right foot shows acute fracture 5th toe, without signs of osteomyelitis severe CAD with hx of previous cardiac arrest x 3 4 weeks ago (patient transfe rred to [facility] for possible pacemaker placement; however, this was never implanted) P/ due to the appearance of the three toe skin changes and gangrene and the timing of occurrence it is likely that these injuries are consequence of an arterial thromboembolic event originating most likely from a more proximal larger vessel such as abdominal aorta, Iliac artery, or femoral artery. This pathology will require evaluation and treatment to be done in a facility with Vascular Surgery and Interventional Radiology capabilities both are not available at out hospital. Therefore, transfer to such a facility seems appropriate.
[2018-02-23] MEDS ORDERED: HYDROCODONE/ACETAMINOPHEN 5-325 MG (6 TAB/ER DISP) PO PRN (21:44)
[2018-02-23 23:06] VITALS: BP 133/67
== END 2018-02-23 22:35 | disposition home or self-care (01) ==
LOC: ER 12:01
DX: E10.52 Type 1 diabetes mellitus with diabetic peripheral angiopathy with gangrene (principal); I96 Gangrene, not elsewhere classified; M79.674 Pain in right toe(s); D64.9 Anemia, unspecified; I10 Essential (primary) hypertension; F17.210 Nicotine dependence, cigarettes, uncomplicated; J44.9 Chronic obstructive pulmonary disease, unspecified; Z86.74 Personal history of sudden cardiac arrest
CPT/HCPCS: 99285; 96375; 96365; 96367; 36415; 82962; 85025; 86140; 80053; 73630; J3010; J1170; J2405; J3370; J2543

== ENCOUNTER 2018-03-04 06:05 | Emergency (ER) | payer SELFPAY ==
[2018-03-04 06:58] LABS: ABSOLUTE LYMPHOCYTES (AUTO) 0.6 10^3/uL (0.5-4.7); ABSOLUTE MONOCYTES (AUTO) 0.5 10^3/uL (0.1-1.4); ABSOLUTE NEUT (AUTO) 9.6 10^3/uL (1.7-8.2); BASOPHILS % (AUTO) 0.3 % (0-2); EOSINOPHILS % (AUTO) 0.1 % (0-6); HEMATOCRIT 30.8 % (36.0-47.0); HEMOGLOBIN 10.4 g/dL (12.0-15.5); LYMPHOCYTES % (AUTO) 5.4 % (13-45); MEAN CORPUSCULAR HEMOGLOBIN 32.3 pg (27.0-33.4); MEAN CORPUSCULAR HGB CONC 33.6 g/dL (32.0-36.0); MEAN CORPUSCULAR VOLUME 96 fl (80-97); MONOCYTES % (AUTO) 4.8 % (3-13); PLATELET COUNT 190 10^3/uL (150-450); RED BLOOD COUNT 3.21 10^6/uL (3.72-5.28); RED CELL DISTRIBUTION WIDTH 13.9 % (11.5-14.0); SEGMENTED NEUTROPHILS % (AUTO) 89.4 % (42-78); TOTAL CELLS COUNTED % (AUTO) 100 %; WHITE BLOOD COUNT 10.7 10^3/uL (4.0-10.5)
[2018-03-04] MEDS ORDERED: NORMAL SALINE 1000 ML 1,000 ML IV PRN (07:10)
[2018-03-04] MEDS ORDERED: ONDANSETRON HCL INJ/PF 4 MG/2 ML SDV IV ONE (07:10)
[2018-03-04] MEDS ORDERED: DICYCLOMINE HCL INJ 20 MG/2 ML AMPULE IM ONE (07:10)
[2018-03-04 07:30] LABS: ALANINE AMINOTRANSFERASE 20 U/L (9-52); ALBUMIN 3.1 g/dL (3.5-5.0); ALKALINE PHOSPHATASE 101 U/L (38-126); ANION GAP 7 (5-19); ASPARTATE AMINO TRANSFERASE 16 U/L (14-36); BILIRUBIN,DIRECT 0.3 mg/dL (0.0-0.4); BILIRUBIN,TOTAL 0.3 mg/dL (0.2-1.3); BLOOD UREA NITROGEN 12 mg/dL (7-20); CALCIUM 8.8 mg/dL (8.4-10.2); CARBON DIOXIDE 23 mmol/L (22-30); CHLORIDE 104 mmol/L (98-107); GLUCOSE 300 mg/dL (75-110); LIPASE 46.1 U/L (23-300); POTASSIUM 3.8 mmol/L (3.6-5.0); SODIUM 134.4 mmol/L (137-145); TOTAL PROTEIN 5.7 g/dL (6.3-8.2)
--- NOTE | 2018-03-04 08:28 | RADIOLOGY REPORT (SQ) ---
EXAM DESCRIPTION: ACUTE ABDOMEN SERIES COMPLETED DATE/TIME: 03/04/2018 8:10 am REASON FOR STUDY: abd pain n/v/d COMPARISON: None. NUMBER OF VIEWS: Three views. TECHNIQUE: Frontal chest, supine abdomen and upright/decubitus abdomen radiographic images acquired. LIMITATIONS: None. FINDINGS: CHEST: Lungs clear of infiltrates. FREE AIR: None. No abnormal gas collections. BOWEL GAS PATTERN: Nonobstructive pattern. No dilated loops or air fluid levels. CALCIFICATIONS: No suspicious calcifications. HARDWARE: None in the abdomen. SOFT TISSUES: No gross mass or suggestion of organomegaly. BONES: No acute fracture. No worrisome bone lesions. OTHER: No other significant finding. IMPRESSION: Nonobstructive pattern of bowel gas with gas and stool present to the rectum. No free a ir in the abdomen. No acute abnormality of the lungs. TECHNICAL DOCUMENTATION: JOB ID: [id number] [employer]- All Rights Reserved Reading location - IP/workstation name: [email or web address]
[2018-03-04] MEDS ORDERED: ACETAMINOPHEN 325 MG TABLET PO ONE (09:56)
--- NOTE | 2018-03-04 10:08 | ER Document Report ---
ED General - General Chief Complaint: Abdominal Pain Stated Complaint: VOMITING Time Seen by Provider: 03/04/18 06:20 TRAVEL OUTSIDE OF THE [place] IN LAST 30 DAYS: No - HPI Patient complains to provider of: Abdominal pain and vomiting Notes: Patient coming in for a 24-48-hour history of abdominal pain and vomiting. Patient is diabetic. Patient states abdominal pain is diffuse. Patient denies any recent antibiotics patient also states she is having diarrhea. Denies any sick contacts. Patient is able to tolerate all of her medications. Patient does have a history of gangrene of her toes however missed her appointment to see the vascular surgeon day prior due to her symptoms of nausea vomiting diarrhea. Patient states they are going to amputate the toes. Patient othe rwise looks to be no obvious distress upon my evaluation denies any trauma denies any recent travel - Related Data Allergies/Adverse Reactions: No Known Allergies Allergy (Verified 02/23/18 12:02) Past Medical History - Social History Smoking Status: Current Every Day Smoker Drug Abuse: None Family History: CAD, Malignancy, Other - unknown Patient has suicidal ideation: No Patient has homicidal ideation: No - Past Medical History Cardiac Medical History: Reports: Hx Hypercholesterolemia, Hx Hypertension Pulmonary Medical History: Reports: Hx COPD Endocrine Medical History: Reports: Hx Diabetes Mellitus Type 1 Renal/ Medical History: Denies: Hx Peritoneal Dialysis Past Surgical History: Reports: Hx Appendectomy Review of Systems - Review of Systems Constitutional: No symptoms reported EENT: No symptoms reported Cardiovascular: No symptoms reported Respiratory: No symptoms reported Gastrointestinal: Abdominal pain, Diarrhea, Nausea, Vomiting Genitourinary: No symptoms reported Female Genitourinary: No symptoms reported Musculoskeletal: No symptoms reported Skin: No symptoms reported Hematologic/Lymphatic: No symptoms reported Neurological/Psychological: No symptoms reported -: Yes All other systems reviewed and negative Physical Exam - Vital signs Vitals: Resp Pulse Ox 16 95 03/04/18 06:17 03/04/18 06:17 Interpretation: Normal - General General appearance: Appears well, Alert - HEENT Head: Normocephalic, Atraumatic Eyes: Normal Pupils: PERRL - Respiratory Respiratory status: No respiratory distress Chest status: Nontender Breath sounds: Normal Chest palpation: Normal - Cardiovascular Rhythm: Regular Heart sounds: Normal auscultation Murmur: No - Abdominal Inspection: Normal Distension: No distension Bowel sounds: Normal Tenderness: Nontender. No: Tender Organomegaly: No organomegaly - Back Back: Normal, Nontender - Extremities General upper extremity: Normal inspection, Nontender, Normal color, Normal ROM, Normal temperature General lower extremity: Nontender, Normal color, Normal ROM, Normal temperature, Normal weight bearing. No: Normal inspection - Pads of the toes second third fourth on the right shows signs of dry gangrene, Ced's sign - Neurological Neuro grossly intact: Yes Cognition: Normal Orientation: AAOx4 Paul Coma Scale Eye Opening: Spontaneous Paul Coma Scale Verbal: Oriented Paul Coma Scale Motor: Obeys Commands Paul Coma Scale Total: 15 Speech: Normal Motor strength normal: LUE, RUE, LLE, RLE Sensory: Normal - Psychological Associated symptoms: Normal affect, Normal mood - Skin Skin Temperature: Warm Skin Moisture: Dry Skin Color: Normal Course - Re-evaluation Re-evalutation: 03/04/18 14:54 The patient presents with abdominal pain without signs of peritonitis or other life-threatening or serious etiology. The patient appears stable for discharge and has been instructed to return immediately if the symptoms worsen in any way, or in 8-12hr if not improved for re-evaluation. The patient has been instructed to return if the symptoms worsen or change in any way. - Vital Signs Vital signs: Temp Pulse Resp BP Pulse Ox 98.5 F 77 18 138/86 H 98 03/04/18 11:00 03/04/18 11:00 03/04/18 11:00 03/04/18 11:00 03/04/18 11:00 - Laboratory Result Diagrams: 03/04/18 06:47 03/04/18 06:47 Laboratory results interpreted by me: 03/04/18 03/04/18 03/04/18 06:47 06:47 09:45 WBC 10.7 H RBC 3.21 L Hgb 10.4 L Hct 30.8 L Seg Neutrophils % 89.4 H Lymphocytes % 5.4 L Absolute Neutrophils 9.6 H Sodium 134.4 L Creatinine 0.44 L Glucose 300 H Total Protein 5.7 L Albumin 3.1 L Urine Glucose (UA) >=500 H Urine Ketones 20 H Discharge - Discharge Clinical Impression: Gangrene of toe of right foot Nausea & vomiting Qualifiers: Vomiting type: unspecified Vomiting Intractability: unspecified Qualified Code(s): R11.2 - Nausea with vomiting, unspecified Abdominal pain Qualifiers: Abdominal location: unspecified location Qualified Code(s): R10.9 - Unspecified abdominal pain Condition: Good Disposition: HOME, SELF-CARE Instructions: Abdominal Pain ([facility]), Gastroenteritis (adult) ([facility]) Additional Instructions: Please follow-up with your provider for further evaluation of your right foot. Your evaluation does not reveal any critical pathology. Will recommend clear liquids for the next 12-24 hours followed by advancing your diet as tolerated. I recommend using Zofran Phenergan for any nausea or vomiting May take the Bentyl for any abdominal cramping that she may have also recommend taking Tylenol for abdominal pain is available [id number] return to ER symptoms worsen Prescriptions: Dicyclomine HCl [Bentyl 20 mg Tablet] 20 mg PO QID #30 tablet Ondansetron [Zofran Odt 4 mg Tablet] 1 - 2 tab PO Q4H PRN #30 tab.rapdis PRN Reason: For Nausea/Vomiting Promethazine HCl [Phenergan 25 mg Tablet] 25 mg PO Q6 #30 tablet Forms: Return to Work
[2018-03-04 10:20] LABS: APPEARANCE,URINE CLEAR; BILIRUBIN,URINE NEGATIVE (NEGATIVE); COLOR,URINE YELLOW; GLUCOSE, URINE >=500 mg/dL (NEGATIVE); KETONES,URINE 20 mg/dL (NEGATIVE); LEUKOCYTE ESTERASE,URINE NEGATIVE (NEGATIVE); NITRITE,URINE NEGATIVE (NEGATIVE); PROTEIN,URINE NEGATIVE (NEGATIVE); URINE SPECIFIC GRAVITY 1.013; UROBILINOGEN,URINE NEGATIVE mg/dL (<2.0)
[2018-03-04 11:03] VITALS: BP 138/86
== END 2018-03-04 11:03 | disposition home or self-care (01) ==
LOC: ER 06:05
DX: R10.84 Generalized abdominal pain (principal); R11.2 Nausea with vomiting, unspecified; R19.7 Diarrhea, unspecified; E10.52 Type 1 diabetes mellitus with diabetic peripheral angiopathy with gangrene; I96 Gangrene, not elsewhere classified; F17.200 Nicotine dependence, unspecified, uncomplicated; I10 Essential (primary) hypertension; J44.9 Chronic obstructive pulmonary disease, unspecified; Z90.49 Acquired absence of other specified parts of digestive tract
CPT/HCPCS: 99284; 96372; 96374; 36415; 83690; 85025; 80053; 81001; 74022; J0500; J2405; J7030

== ENCOUNTER 2018-03-08 11:37 | Emergency (ER) | payer SELFPAY ==
[2018-03-08 12:01] LABS: ABSOLUTE BASOPHILS # (AUTO) 0.1 10^3/uL (0.0-0.2); ABSOLUTE EOSINOPHILS # (AUTO) 0.3 10^3/uL (0.0-0.6); ABSOLUTE LYMPHOCYTES (AUTO) 2.2 10^3/uL (0.5-4.7); ABSOLUTE MONOCYTES (AUTO) 0.8 10^3/uL (0.1-1.4); EOSINOPHILS % (AUTO) 2.8 % (0-6); HEMOGLOBIN 11.2 g/dL (12.0-15.5); LYMPHOCYTES % (AUTO) 17.6 % (13-45); MEAN CORPUSCULAR HEMOGLOBIN 31.9 pg (27.0-33.4); MEAN CORPUSCULAR HGB CONC 33.8 g/dL (32.0-36.0); MEAN CORPUSCULAR VOLUME 95 fl (80-97); MONOCYTES % (AUTO) 6.3 % (3-13); PLATELET COUNT 379 10^3/uL (150-450); RED BLOOD COUNT 3.49 10^6/uL (3.72-5.28); RED CELL DISTRIBUTION WIDTH 14.2 % (11.5-14.0); SEGMENTED NEUTROPHILS % (AUTO) 72.3 % (42-78); TOTAL CELLS COUNTED % (AUTO) 100 %; WHITE BLOOD COUNT 12.5 10^3/uL (4.0-10.5)
[2018-03-08 12:07] LABS: ALANINE AMINOTRANSFERASE 22 U/L (9-52); ALBUMIN 3.9 g/dL (3.5-5.0); ALKALINE PHOSPHATASE 125 U/L (38-126); ANION GAP 10 (5-19); ASPARTATE AMINO TRANSFERASE 22 U/L (14-36); BILIRUBIN,DIRECT 0.2 mg/dL (0.0-0.4); BILIRUBIN,TOTAL 0.3 mg/dL (0.2-1.3); BLOOD UREA NITROGEN 11 mg/dL (7-20); CALCIUM 9.9 mg/dL (8.4-10.2); CARBON DIOXIDE 29 mmol/L (22-30); CHLORIDE 104 mmol/L (98-107); GLUCOSE 66 mg/dL (75-110); LIPASE 49.9 U/L (23-300); POTASSIUM 3.4 mmol/L (3.6-5.0); SODIUM 143.2 mmol/L (137-145); TOTAL PROTEIN 7.1 g/dL (6.3-8.2)
[2018-03-08] MEDS ORDERED: NORMAL SALINE 1000 ML 1,000 ML IV ONE (13:14)
[2018-03-08] MEDS ORDERED: FAMOTIDINE INJ/PF 20 MG/2 ML SDV IV ONE (13:37)
[2018-03-08] MEDS ORDERED: DIPHENHYDRAMINE HCL 50 MG/ML VIAL IV ONE (13:37)
[2018-03-08] MEDS ORDERED: METHYLPREDNISOLONE INJ 125 MG/2 ML SDV IV ONE (13:37)
[2018-03-08 13:56] LABS: APPEARANCE,URINE CLEAR; BILIRUBIN,URINE NEGATIVE (NEGATIVE); COLOR,URINE STRAW; GLUCOSE, URINE NEGATIVE (NEGATIVE); KETONES,URINE NEGATIVE (NEGATIVE); LEUKOCYTE ESTERASE,URINE NEGATIVE (NEGATIVE); NITRITE,URINE NEGATIVE (NEGATIVE); PROTEIN,URINE NEGATIVE (NEGATIVE); URINE SPECIFIC GRAVITY 1.005; UROBILINOGEN,URINE NEGATIVE mg/dL (<2.0)
--- NOTE | 2018-03-08 15:46 | RADIOLOGY REPORT (SQ) ---
EXAM DESCRIPTION: CT ABD/PELVIS WITH IV ONLY COMPLETED DATE/TIME: 03/08/2018 3:19 pm REASON FOR STUDY: periumbilical pain COMPARISON: None. TECHNIQUE: CT scan of the abdomen and pelvis performed using helical scanning technique with dynamic intravenous contrast injection. No oral contrast. Images reviewed with lung, soft tissue, and bone windows. Reconstructed coronal and sagittal MPR images reviewed. Delayed images for evaluation of the urinary system also acquired. All images stored on PACS. All CT scanners at this facility use dose modulation, iterative reconstruction, and/or weight based d osing when appropriate to reduce radiation dose to as low as reasonably achievable (ALARA). [facility]: Dose Right [facility]: CareDose [facility]: Dose Right [facility]: Teradose 4D [facility]: Wavestream CONTRAST TYPE AND DOSE: contrast/concentration: Isovue 350.00 mg/ml; Total Contrast Delivered: 69.0 ml; Total Saline Delivered: 28.5 ml 69 cc Omnipaque 350 RENAL FUNCTION: BUN 11, creatinine 0.45 RADIATION DOSE: CT Rad equipment meets quality standard of care and radiation dose reduction techniq ues were employed. CTDIvol: 5.2 - 7.0 mGy. DLP: 661 mGy-cm.. LIMITATIONS: None. FINDINGS: LOWER CHEST: No significant findings. No nodules or infiltrates. LIVER: Hypoattenuation along the falciform ligament, likely secondary to systemic venous drainage. N o additional hepatic lesions. No intrahepatic ductal dilation. SPLEEN: Normal size. No focal lesions. Splenule noted. PANCREAS: Ill-defined hypoattenuation within the pancreatic head with dilation of the CBD measuring u p to 8.5 mm. No significant calcifications. No adjacent inflammation or peripancreatic fluid collec tions. Pancreatic duct not dilated. GALLBLADDER: No identified stones by CT criteria. No inflammatory changes to suggest cholecystitis. ADRENAL GLANDS: No significant masses or asymmetry. RIGHT KIDNEY AND URETER: No solid masses. No significant calcifications. No hydronephrosis or hyd roureter. LEFT KIDNEY AND URETER: No solid masses. No significant calcifications. No hydronephrosis or hydr oureter. AORTA AND VESSELS: Aortoiliac atherosclerosis. No aneurysm. Unremarkable celiac and SMA origins. A therosclerosis of the bilateral renal ostia. CARLOS is patent. RETROPERITONEUM: No retroperitoneal adenopathy, hemorrhage or masses. BOWEL AND PERITONEAL CAVITY: No focal bowel wall thickening. No evidence of intestinal obstruction. APPENDIX: Not visualized. PELVIS: No mass. No free fluid. Normal bladder. ABDOMINAL WALL: No masses. No hernias. BONES: No significant or acute findings. OTHER: No other significant finding. IMPRESSION: Ill-defined hypoattenuation within the pancreatic head with dilation of the CBD measurin g up to 8.5 mm. Underlying pancreatic lesion is not excluded. Recommend further characterization wi th MRI, dedicated pancreatic protocol CT or endoscopy with EUS. No additional evidence of acute intra-abdominal/pelvic process. COMMENT: Pertinent positive or negative findings of the imaging study reported to JEAN MARIE VO PA-C at15:39 on 03/08/2018. TECHNICAL DOCUMENTATION: JOB ID: [id number] Quality ID # [id number]: Final reports with documentation of one or more dose reduction techniques (e.g., Au tomated exposure control, adjustment of the mA and/or kV according to patient size, use of iterative reconstruction technique) 2010 [employer]- All Rights Reserved Reading location - IP/workstation name: [email or web address]
--- NOTE | 2018-03-08 17:46 | ER Document Report ---
ED General - General Chief Complaint: Diarrhea Stated Complaint: ABDOMINAL PAIN Time Seen by Provider: 03/08/18 11:52 Primary Care Provider: MARYSE VALLECILLO MD [Primary Care Provider] - Follow up as needed Notes: Patient is a 84-year-old female presents to the emergency department for generalized periumbilical and epigastric abdominal pain intermittently for the last couple of days. Patient also complaining of generalized diarrhea. Patient is denying any vomits or fever. Patient states she was admitted to this facility for DKA recently and was again seen at this emergency room on 03/04/2018 for generalized vomiting and diarrhea. Patient states when she was seen in the emergency department on 03/04/2018 she was given medications and Told to follow-up with her primary care provider. She states her generalized abdominal pain had subsided at that time. States that abdominal pain has returned and is now worse. Patient states she knows that she has toes on her right foot that are gangrenous and need to be removed. States she went for treatment for this and was told that she has "clots in her abdomen." Patient was concerned due to the resurfacing and increase of her abdominal pain which is why she presents to the emergency room now. Past medical history: Diabetes, COPD Medications: Gabapentin, lisinopril, losartan, nitroglycerin Allergies: None Surgical history: Appendectomy TRAVEL OUTSIDE OF THE [place] IN LAST 30 DAYS: No - Related Data Allergies/Adverse Reactions: No Known Allergies Allergy (Verified 03/08/18 16:25) Past Medical History - General Information source: Patient - Social History Smoking Status: Former Smoker Family History: CAD, Malignancy, Other - unknown Patient has suicidal ideation: No Patient has homicidal ideation: No - Past Medical History Cardiac Medical History: Reports: Hx Hypercholesterolemia, Hx Hypertension Pulmonary Medical History: Reports: Hx COPD Endocrine Medical History: Reports: Hx Diabetes Mellitus Type 1 Renal/ Medical History: Denies: Hx Peritoneal Dialysis Past Surgical History: Reports: Hx Appendectomy Review of Systems - Review of Systems Constitutional: denies: Fever EENT: No symptoms reported Cardiovascular: No symptoms reported Respiratory: No symptoms reported Gastrointestinal: See HPI Genitourinary: denies: Dysuria Female Genitourinary: No symptoms reported Musculoskeletal: No symptoms reported Skin: No symptoms reported Hematologic/Lymphatic: No symptoms reported Neurological/Psychological: No symptoms reported Physical Exam - Vital signs Vitals: Resp BP Pulse Ox 18 123/52 L 97 03/08/18 11:50 03/08/18 11:50 03/08/18 11:50 - Notes Notes: GENERAL: Alert, interacts well. Intermittently moaning holding her periumbilical region. HEAD: Normocephalic, atraumatic. EYES: Pupils equal, round, and reactive to light. Extraocular movements intact. ENT: Oral mucosa moist, tongue midline. NECK: Full range of motion. Supple. Trachea midline. LUNGS: Clear to auscultation bilaterally, no wheezes, rales, or rhonchi. No respiratory distress. HEART: Regular rate and rhythm. No murmur ABDOMEN: Soft, Non-distended. Bowel sounds present in all 4 quadrants. Generalized tenderness periumbilical into the right lower quadrant right upper quadrant and epigastric region. EXTREMITIES: Moves all 4 extremities spontaneously. No edema, normal radial and dorsalis pedis pulses bilaterally. No cyanosis. BACK: no cervical, thoracic, lumbar midline tenderness. No saddle anesthesia, normal distal neurovascular exam. NEUROLOGICAL: Alert and oriented x3. Normal speech. cranial nerves II through XII grossly intact PSYCH: Normal affect, normal mood. SKIN: Warm, dry, normal turgor. On patient's right foot toes #2, 3, 4 appear to be gangrenous. No erythema noted in patient's foot or red streaking. Course - Re-evaluation Re-evalutation: In looking at patient's repeat visits it is unsure where patient had these imaging of her abdomen that showed a "clots." Patient is unable to tell me where this imaging modality was done. 03/08/18 17:45 Due to patient's generalized grimace holding her periumbilical region and her age and that she was in this facility 03/04/2018 for similar initially a CT abdomen was ordered. Patient CT showed an ill-defined hypoattenuation within the pancreatic head with a dilation of the CBD measuring up to 8.5 mm. Underlying pancreatic lesion is not excluded. No signs of cholecystitis. Patient's labs show a slight leukocytosis of 12.5 with an absolute neutrophil count of 9. There is no increase in the patient's LFTs or lipase. Patient's lactate is negative. No signs of urinary tract infection on urine. She appears to be well-hydrated with a specific gravity of 1.005 and no urine ketones noted. Discussed CT results with gastroenterology Dr. Hutchinson who recommends an ERCP. States he does not perform ERCPs and the patient should follow-up outpatient with Dr. Estrada if the patient is stable. As I entered the patient room to discuss these findings patient is on her cellular device in no obvious distress. She is non-tachycardic, non- hypotensive, afebrile. Patient's only treatments in the emergency room have been fluid rehydration and prophylactic treatment for her allergy to IV dye. Anival hooker has been given no pain medications. In discussing patient's need for an ERCP with the patient she states she overall feels a lot better and would like to be discharged. States she will follow-up outpatient with Dr. Estrada. Patient is stable for discharge, close return precautions discussed. 03/08/18 17:59 Stool cultures and C. difficile were ordered, patient has been unable to provide a sample in the emergency room, discussed again following up outpatient. Patient verbalizes understanding. - Vital Signs Vital signs: Temp Pulse Resp BP Pulse Ox 98.5 F 23 H 143/69 H 95 03/08/18 17:01 03/08/18 17:01 03/08/18 17:01 03/08/18 17:01 - Laboratory Result Diagrams: 03/08/18 11:12 03/08/18 11:12 Laboratory results interpreted by me: 03/08/18 03/08/18 11:12 11:12 WBC 12.5 H RBC 3.49 L Hgb 11.2 L Hct 33.0 L RDW 14.2 H Absolute Neutrophils 9.0 H Potassium 3.4 L Creatinine 0.45 L Glucose 66 L Discharge - Discharge Clinical Impression: Periumbilical abdominal pain Diarrhea Qualifiers: Diarrhea type: unspecified type Qualified Code(s): R19.7 - Diarrhea, unspe cified Condition: Stable Disposition: HOME, SELF-CARE Instructions: Abdominal Pain ([facility]), Gallbladder Disease ([facility]), Diarrhea, Nonspecific ([facility]) Additional Instructions: As we discussed you have been seen and treated in the emergency department for your generalized abdominal pain. Your CT scan does show an inflammation of your common bile duct and your pancreas. As we discussed you need to see a director health to have a specific test done. You should call the phone number provided in this packet within the next 24 hours. She do not be able to get in with a director health or your pain comes back worse please immediately return to the emergency room. Referrals: MARYSE VALLECILLO MD [Primary Care Provider] - Follow up as needed STEVEN ESTRADA MD [ACTIVE STAFF] - Follow up as needed
[2018-03-08 18:28] VITALS: BP 155/66
== END 2018-03-08 18:31 | disposition home or self-care (01) ==
LOC: ER 11:37
DX: R10.33 Periumbilical pain (principal); R19.7 Diarrhea, unspecified; R10.9 Unspecified abdominal pain; R10.13 Epigastric pain; R11.10 Vomiting, unspecified; R10.84 Generalized abdominal pain; Z87.891 Personal history of nicotine dependence; I10 Essential (primary) hypertension; J44.9 Chronic obstructive pulmonary disease, unspecified; E10.9 Type 1 diabetes mellitus without complications
CPT/HCPCS: 99284; 96361; 96374; 96375; 36415; 87086; 82962; 83605; 83690; 85025; 87088; 80053; 81001; 87186; 74177; J1200; J2930; J7030; S0028

== ENCOUNTER 2018-03-15 10:24 | Emergency (ER) | payer SELFPAY ==
--- NOTE | 2018-03-15 11:28 | ER Document Report ---
ED Medical Screen (RME) - General Chief Complaint: Toe Injury Stated Complaint: TOE PAIN Time Seen by Provider: 03/15/18 10:36 Primary Care Provider: MARYSE VALLECILLO MD [Primary Care Provider] - Follow up as needed Notes: 58-year-old female. Had septic/DKA which developed into intubation, multiple pressors. This all occurred back in January. Since that time she has had ischemia on her digits of the right lower extremity. Seen here recently. Still has the black skin on the toes. Patient has strong pulse of the right foot however. Sent here by primary doctor for "get her toes taken off". I have greeted and performed a rapid initial assessment of this patient. A comprehensive ED assessment and evaluation of the patient, analysis of test results and completion of the medical decision making process will be conducted by additional ED providers. TRAVEL OUTSIDE OF THE [place] IN LAST 30 DAYS: No - Related Data Allergies/Adverse Reactions: IVP contrast dye Allergy (Uncoded 03/15/18 10:30) Past Medical History - Past Medical History Cardiac Medical History: Reports: Hx Hypercholesterolemia, Hx Hypertension Pulmonary Medical History: Reports: Hx COPD Endocrine Medical History: Reports: Hx Diabetes Mellitus Type 1 Renal/ Medical History: Denies: Hx Peritoneal Dialysis Past Surgical History: Reports: Hx Appendectomy Physical Exam - Vital signs Vitals: Temp Pulse Resp BP Pulse Ox 98.1 F 85 16 146/85 H 100 03/15/18 10:40 03/15/18 10:40 03/15/18 10:40 03/15/18 10:40 03/15/18 10:40 - Notes Notes: She has multiple black areas of skin on the right foot digits #234 and 5. Patient however has bounding pulses present on the dorsalis pedis on the right foot. The digits are nice and pink, not cold. Appears to have darkened skin on the toes but likely viable tissue underneath. Course - Vital Signs Vital signs: Temp Pulse Resp BP Pulse Ox 98.1 F 85 16 146/85 H 100 03/15/18 10:40 03/15/18 10:40 03/15/18 10:40 03/15/18 10:40 03/15/18 10:40 Doctor's Discharge - Discharge Referrals: MARYSE VALLECILLO MD [Primary Care Provider] - Follow up as needed
--- NOTE | 2018-03-15 12:37 | RADIOLOGY REPORT (SQ) ---
EXAM DESCRIPTION: FOOT RIGHT COMPLETE COMPLETED DATE/TIME: 03/15/2018 12:24 pm REASON FOR STUDY: ischemia to multiple digits COMPARISON: 02/23/2018 NUMBER OF VIEWS: Three views. TECHNIQUE: AP, lateral and oblique radiographic images acquired of the right foot. LIMITATIONS: None. FINDINGS: MINERALIZATION: Decreased. BONES: No evidence new fracture or dislocation. Interval sclerosis without change in alignment of th e prior 5th proximal phalanx fracture. Plantar calcaneal enthesophyte. JOINTS: No large effusion. Mild midfoot degenerative change. SOFT TISSUES: No soft tissue swelling. No foreign body. OTHER: No other significant finding. IMPRESSION: Interval sclerosis without change in alignment of the prior 5th proximal phalanx fractur e. No evidence of new bony abnormality. Osteopenia. TECHNICAL DOCUMENTATION: JOB ID: [id number] [employer]- All Rights Reserved Reading location - IP/workstation name: [email or web address]
--- NOTE | 2018-03-15 14:50 | ER Document Report ---
ED General - General Chief Complaint: Toe Injury Stated Complaint: TOE PAIN Time Seen by Provider: 03/15/18 10:36 Primary Care Provider: DALTON MCKINNEY MD [FRIEDA URRUTIA] - Follow up as needed TRAVEL OUTSIDE OF THE [place] IN LAST 30 DAYS: No - HPI Patient complains to provider of: Gangrene toes right foot Notes: Patient here for evaluation of gangrene to the toes of the right foot. Patient was seen one the local clinics and was sent to the ER for further evaluation. I have evaluate this patient on prior visits. Patient states that she was told at [facility] she would have her toes removed but however cannot afford the surgery patient denies any fevers chills nausea vomiting diarrhea. - Related Data Allergies/Adverse Reactions: IVP contrast dye Allergy (Uncoded 03/15/18 10:30) Past Medical History - Social History Smoking Status: Former Smoker Family History: CAD, Malignancy, Other - unknown Patient has suicidal ideation: No Patient has homicidal ideation: No - Past Medical History Cardiac Medical History: Reports: Hx Hypercholesterolemia, Hx Hypertension Pulmonary Medical History: Reports: Hx COPD Endocrine Medical History: Reports: Hx Diabetes Mellitus Type 1 Renal/ Medical History: Denies: Hx Peritoneal Dialysis Past Surgical History: Reports: Hx Appendectomy Review of Systems - Review of Systems Constitutional: No symptoms reported EENT: No symptoms reported Cardiovascular: No symptoms reported Respiratory: No symptoms reported Gastrointestinal: No symptoms reported Genitourinary: No symptoms reported Female Genitourinary: No symptoms reported Musculoskeletal: Other - Ischemic toes Skin: No symptoms reported Hematologic/Lymphatic: No symptoms reported Neurological/Psychological: No symptoms reported Physical Exam - Vital signs Vitals: Temp Pulse Resp BP Pulse Ox 98.1 F 85 16 146/85 H 100 03/15/18 10:40 03/15/18 10:40 03/15/18 10:40 03/15/18 10:40 03/15/18 10:40 Interpretation: Normal - General General appearance: Appears well, Alert - HEENT Head: Normocephalic, Atraumatic Eyes: Normal Pupils: PERRL - Respiratory Respiratory status: No respiratory distress Chest status: Nontender Breath sounds: Normal Chest palpation: Normal - Cardiovascular Rhythm: Regular Heart sounds: Normal auscultation Murmur: No - Abdominal Inspection: Normal Distension: No distension Bowel sounds: Normal Tenderness: Nontender Organomegaly: No organomegaly - Back Back: Normal, Nontender - Extremities General upper extremity: Normal inspection, Nontender, Normal color, Normal ROM, Normal temperature General lower extremity: Nontender, Normal color, Normal ROM, Normal temperature, Normal weight bearing. No: Normal inspection - Examination of the patient's toes on the right foot showed ischemia to the tips of the toes blackened skin dry gangrene of the second third fourth toe. I have evaluated the foot previously there is no change in presentation there is no redness no swelling there is no signs of infection, Ced's sign - Neurological Neuro grossly intact: Yes Cognition: Normal Orientation: AAOx4 [place] Coma Scale Eye Opening: Spontaneous Paul Coma Scale Verbal: Oriented Paul Coma Scale Motor: Obeys Commands Paul Coma Scale Total: 15 Speech: Normal Motor strength normal: LUE, RUE, LLE, RLE Sensory: Normal - Psychological Associated symptoms: Normal affect, Normal mood - Skin Skin Temperature: Warm Skin Moisture: Dry Skin Color: Normal Course - Re-evaluation Re-evalutation: 03/15/18 18:17 And x-ray was performed in triage showing sclerosing of the components patient did have a previous fracture I did confirm with the radiologist sclerosing that is seeing is not consistent with osteomyelitis. Patient has no fever they recommend the patient follow-up with the clinic and then for possible surgical evaluation however at this time no need for admission to the hospital no signs of infection patient is to return immediately should develop a fever otherwise follow-up with outpatient patient's information will be given to our geriatric social worker for continuation of care - Vital Signs Vital signs: Temp Pulse Resp BP Pulse Ox 98.7 F 94 16 161/64 H 97 03/15/18 15:13 03/15/18 15:13 03/15/18 10:40 03/15/18 15:13 03/15/18 15:13 - Laboratory Laboratory results interpreted by me: 03/15/18 12:10 POC Glucose 177 H Discharge - Discharge Clinical Impression: Gangrene of toe of right foot Condition: Good Disposition: HOME, SELF-CARE Instructions: Dressing Instructions for Open Wounds ([facility]) Additional Instructions: [facility] I will have your geriatric social worker call over to see if we can help establish wound care. At this time there is no need for any emergent surgery of your toes he can also try to follow-up with the surgical clinic provided return to ER symptoms worsen. Referrals: DALTON MCKINNEY MD [FRIEDA URRUTIA] - Follow up as needed
[2018-03-15 15:22] VITALS: BP 161/64
== END 2018-03-15 15:13 | disposition home or self-care (01) ==
LOC: ER 10:24
DX: E10.52 Type 1 diabetes mellitus with diabetic peripheral angiopathy with gangrene (principal); I96 Gangrene, not elsewhere classified; I10 Essential (primary) hypertension; J44.9 Chronic obstructive pulmonary disease, unspecified; Z91.041 Radiographic dye allergy status
CPT/HCPCS: 82962; 99283

== ENCOUNTER → 2018-03-24 | Outpatient (CLI) | payer MEDICAID ==
--- NOTE | 2018-03-24 11:51 | RADIOLOGY REPORT (SQ) ---
EXAM DESCRIPTION: FOOT RIGHT COMPLETE COMPLETED DATE/TIME: 03/24/2018 11:21 am REASON FOR STUDY: PERIPHERAL VASCULAR DISEASE, UNSPEC (I73.9) I73.9 PERIPHERAL VASCULAR DISEASE, UN SPECIFIED COMPARISON: 03/15/2018 NUMBER OF VIEWS: Three views. TECHNIQUE: AP, lateral and oblique radiographic images acquired of the right foot. LIMITATIONS: None. FINDINGS: Osteopenia of the 3rd, 4th and 5th metatarsal heads. Healing fracture proximal 5th phalan x. No aggressive bone lesion or periosteal reaction. No foreign body. IMPRESSION: No evidence of osteomyelitis. TECHNICAL DOCUMENTATION: JOB ID: [id number] [employer]- All Rights Reserved Reading location - IP/workstation name: [email or web address]
--- NOTE | 2018-03-24 17:28 | XCELERA REPORT ---
[address] [address] Lower Extremity Arterial Evaluation Name: ISRAEL DIA Age: 58 yrs Gender: Female : 1960 Patient Status: Outpatient Patient Location: [facility] Study Date: 03/24/2018 11:38 AM Procedure: A color flow and duplex scan of the lower extremity arteries was performed bilaterally with velocity and waveform anaylsis. Ankle brachial indicies performed. Reason For Study: PAD Ordering Physician: WILLIAM SWEET Performed By: Jeanine Ureña Measurements and Calculations Right Left FRONT DESK ASSISTANT PSV 144.6 152.2 cm/sec Prox PFA PSV -125.0 -89.9 cm/sec Prox SFA PSV 111.7 136.7 cm/sec Mid SFA PSV -87.7 -79.9 cm/sec Dist SFA PSV -72.7 -53.7 cm/sec Prox Pop A PSV 58.1 58.0 cm/sec Dist CHRISTEL PSV 56.4 58.7 cm/sec Dist LABORER SHAFT SINKING PSV 53.8 65.3 cm/sec Candelario Pedis PSV -66.0 53.9 cm/sec Right Side Arterial Evaluation Normal velocity and triphasic waveforms noted from the Common Femoral artery to the infrageniculate vessels . Ankle Brachial index is 1.18. Left Side Arterial Evaluation Normal velocity and triphasic waveforms noted from the Common Femoral artery to the infrageniculate vessels . Ankle Brachial index is 1.09. Interpretation Summary No hemodynamically significant lesions in the bilateral lower extremities, on duplex imaging, at rest. : WILLIAM SWEET > William Sweet
== END ==
LOC: SP 10:59
PROVIDERS: ATTEND Surgery
DX: I73.9 Peripheral vascular disease, unspecified (principal)
CPT/HCPCS: 93925

== ENCOUNTER → 2018-04-04 | Outpatient (CLI) | payer MEDICAID ==
[2018-04-04 12:04] LABS: ABSOLUTE EOSINOPHILS # (AUTO) 0.2 10^3/uL (0.0-0.6); ABSOLUTE LYMPHOCYTES (AUTO) 1.5 10^3/uL (0.5-4.7); ABSOLUTE MONOCYTES (AUTO) 0.5 10^3/uL (0.1-1.4); ABSOLUTE NEUT (AUTO) 5.7 10^3/uL (1.7-8.2); BASOPHILS % (AUTO) 0.5 % (0-2); EOSINOPHILS % (AUTO) 2.8 % (0-6); HEMATOCRIT 32.1 % (36.0-47.0); HEMOGLOBIN 10.7 g/dL (12.0-15.5); LYMPHOCYTES % (AUTO) 19.1 % (13-45); MEAN CORPUSCULAR HEMOGLOBIN 32.2 pg (27.0-33.4); MEAN CORPUSCULAR HGB CONC 33.5 g/dL (32.0-36.0); MEAN CORPUSCULAR VOLUME 96 fl (80-97); MONOCYTES % (AUTO) 6.1 % (3-13); PLATELET COUNT 336 10^3/uL (150-450); RED BLOOD COUNT 3.33 10^6/uL (3.72-5.28); RED CELL DISTRIBUTION WIDTH 14.3 % (11.5-14.0); SEGMENTED NEUTROPHILS % (AUTO) 71.5 % (42-78); TOTAL CELLS COUNTED % (AUTO) 100 %
[2018-04-04 12:21] LABS: ALANINE AMINOTRANSFERASE 13 U/L (9-52); ALBUMIN 4.1 g/dL (3.5-5.0); ALKALINE PHOSPHATASE 115 U/L (38-126); ANION GAP 7 (5-19); ASPARTATE AMINO TRANSFERASE 20 U/L (14-36); BILIRUBIN,DIRECT 0.2 mg/dL (0.0-0.4); BILIRUBIN,TOTAL 0.3 mg/dL (0.2-1.3); BLOOD UREA NITROGEN 17 mg/dL (7-20); CALCIUM 9.9 mg/dL (8.4-10.2); CARBON DIOXIDE 28 mmol/L (22-30); CHLORIDE 105 mmol/L (98-107); CHOLESTEROL 151.07 mg/dL (0-200); GLUCOSE 212 mg/dL (75-110); SODIUM 140.2 mmol/L (137-145); TOTAL PROTEIN 6.9 g/dL (6.3-8.2); TRIGLYCERIDES 111 mg/dL (<150)
--- NOTE | 2018-04-04 12:24 | RADIOLOGY REPORT (SQ) ---
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 NUMBER OF VIEWS: Three views. TECHNIQUE: AP, lateral and oblique radiographic images acquired of the right and left foot. LIMITATIONS: None. FINDINGS: RIGHT MINERALIZATION: Normal. BONES: No acute fracture or dislocation. No worrisome bone lesions. JOINTS: No effusions. SOFT TISSUES: No soft tissue swelling. No foreign body. No soft tissue gas. OTHER: Small plantar calcaneal spur. LEFT: MINERALIZATION: Osteopenic BONES: Acute minimally displaced fractures of the left distal metaphysis, 2nd 3rd 4th and 5th metatar sals. This is best shown on the AP and oblique view of the left foot. JOINTS: No effusions. SOFT TISSUES: Diffuse forefoot soft tissue swelling. No foreign body. OTHER: Small plantar calcaneal spur. IMPRESSION: No aggressive demineralization of the right 2nd 3rd and 4th toes worrisome for osteomyel itis. No soft tissue gas. Acute fractures of the distal left 2nd 3rd 4th and 5th metatarsal metaphyses. TECHNICAL DOCUMENTATION: JOB ID: [id number] [employer]- All Rights Reserved Reading location - IP/workstation name: [email or web address]
[2018-04-04 12:35] LABS: DIRECT LDL 55 mg/dL (<100)
[2018-04-05 10:38] LABS: CREATININE URINE 38.5 mg/dL (Not Estab.)
[2018-04-05 11:17] LABS: MICROALBUMIN URINE <3.0 ug/mL (Not Estab.)
== END ==
LOC: OD 10:30
PROVIDERS: ATTEND Family Medicine Geriatric Medicine
DX: E11.8 Type 2 diabetes mellitus with unspecified complications (principal); I25.10 Atherosclerotic heart disease of native coronary artery without angina pectoris; E78.5 Hyperlipidemia, unspecified; I10 Essential (primary) hypertension; Z79.899 Other long term (current) drug therapy; G89.4 Chronic pain syndrome; M79.671 Pain in right foot; M77.32 Calcaneal spur, left foot
CPT/HCPCS: 36415; 80053; 80061; 82043; 82570; 83036; 84443; 84681; 85025

== ENCOUNTER → 2018-04-07 | Outpatient (CLI) | payer MEDICAID ==
--- NOTE | 2018-04-07 10:53 | RADIOLOGY REPORT (SQ) ---
EXAM DESCRIPTION: CAROTID DOPPLER COMPLETED DATE/TIME: 04/07/2018 9:34 am REASON FOR STUDY: BRUIT R09.89 OTH SYMPTOMS AND SIGNS INVOLVING THE CIRC AND RESP SY COMPARISON: None. TECHNIQUE: Grayscale ultrasound, Doppler velocity and spectra, and color Doppler images acquired of the extra-cranial carotid and vertebral arteries. Images stored on PACS. LIMITATIONS: None. FINDINGS: RIGHT CAROTID CCA Velocities: Within normal limits. Right common carotid artery peak systolic velocity 0.96 m/sec ICA Velocities Peak systolic 0.79 m/s. End diastolic 0.24 m/s. Proximal ICA/CCA peak systolic ratio 1.1. Spectra normal. No significant plaque. LEFT CAROTID CCA Velocities: Within normal limits. Left common carotid artery peak systolic velocity 1.0 m/sec ICA Velocities Peak systolic 0.98 m/s. End diastolic 0.30 m/s. Proximal ICA/CCA peak systolic ratio 1.2. Spectra normal. No significant plaque. VERTEBRAL ARTERIES: Antegrade flow. Normal waveforms. SUBCLAVIAN ARTERIES: Not evaluated. OTHER: No other significant finding. IMPRESSION: NO HEMODYNAMICALLY SIGNIFICANT STENOSIS. COMMENT: Quality ID #[id number]: Velocity criteria are extrapolated from the diameter data as defined by t he Society of Radiologists in Ultrasound Consensus Conference. Radiology 2003: 229; 340-346. TECHNICAL DOCUMENTATION: JOB ID: [id number] [employer]- All Rights Reserved Reading location - IP/workstation name: [email or web address]
== END ==
LOC: SP 07:39
PROVIDERS: ATTEND Family Medicine Geriatric Medicine
DX: R09.89 Other specified symptoms and signs involving the circulatory and respiratory systems (principal)
CPT/HCPCS: 93880

== ENCOUNTER 2018-04-26 11:55 | Day surgery (SDC) | payer MEDICAID ==
--- NOTE | 2018-04-22 12:03 | RADIOLOGY REPORT (SQ) ---
EXAM DESCRIPTION: CHEST PA/LATERAL COMPLETED DATE/TIME: 04/22/2018 11:55 am REASON FOR STUDY: PRE-OP COMPARISON: None. EXAM PARAMETERS: NUMBER OF VIEWS: two views TECHNIQUE: Digital Frontal and Lateral radiographic views of the chest acquired. RADIATION DOSE: NA LIMITATIONS: none FINDINGS: LUNGS AND PLEURA: No opacities, masses or pneumothorax. No pleural effusion. MEDIASTINUM AND HILAR STRUCTURES: No masses or contour abnormalities. HEART AND VASCULAR STRUCTURES: Heart normal size. No evidence for failure. BONES: No acute findings. HARDWARE: None in the chest. OTHER: No other significant finding. IMPRESSION: 1. NO SIGNIFICANT RADIOGRAPHIC FINDING IN THE CHEST. TECHNICAL DOCUMENTATION: JOB ID: [id number] [employer]- All Rights Reserved Reading location - IP/workstation name: [email or web address]
[2018-04-22 12:17] LABS: HEMATOCRIT 34.3 % (36.0-47.0); HEMOGLOBIN 11.5 g/dL (12.0-15.5); MEAN CORPUSCULAR HEMOGLOBIN 32.1 pg (27.0-33.4); MEAN CORPUSCULAR HGB CONC 33.4 g/dL (32.0-36.0); MEAN CORPUSCULAR VOLUME 96 fl (80-97); PLATELET COUNT 478 10^3/uL (150-450); RED BLOOD COUNT 3.58 10^6/uL (3.72-5.28); RED CELL DISTRIBUTION WIDTH 14.6 % (11.5-14.0); WHITE BLOOD COUNT 6.7 10^3/uL (4.0-10.5)
[2018-04-22 12:29] LABS: ANION GAP 9 (5-19); BLOOD UREA NITROGEN 13 mg/dL (7-20); CALCIUM 10.9 mg/dL (8.4-10.2); CARBON DIOXIDE 30 mmol/L (22-30); CHLORIDE 103 mmol/L (98-107); GLUCOSE 90 mg/dL (75-110); POTASSIUM 5.1 mmol/L (3.6-5.0); SODIUM 141.7 mmol/L (137-145)
--- NOTE | 2018-04-22 12:59 | EKG REPORT ---
SEVERITY:- NORMAL ECG - SINUS RHYTHM : Confirmed by: Jomar Lane MD 22-Apr-2018 12:58:31
[~2018-04-26 11:55] MED LIST changes: -ATROPINE SULFATE INJ 1 MG/10 ML DISP.SYRIN IV ONE; +BUPIVACAINE HCL 0.25 % INJ/PF (2.5 MG/1 ML) 30 ML VIAL ONE; +CEFAZOLIN 1 GM/D5W RTU 1 GM/50 ML RTUPB IV PRN; -EPINEPHRINE INJ 1 MG/10 ML DISP.SYRIN ONE; +LACTATED RINGERS 1000 ML IV PRN; +LIDOCAINE 0.5% INJ-PF (5 MG/ML) 50 ML SDV ONE; +LIDOCAINE 0.5% INJ-PF (5 MG/ML) 50 ML SDV SUBCUT PRN; -SODIUM BICARBONATE 8.4% INJ 50 MEQ/50 ML DISP.SYRIN ONE
[2018-04-26 13:14] LABS: POTASSIUM 5.7 mmol/L (3.6-5.0)
[2018-04-26] MEDS ORDERED: SUCCINYLCHOLINE CHLORIDE INJ 200 MG/10 ML VIAL ONE (13:48)
[2018-04-26] MEDS ORDERED: CEFAZOLIN 1 GM/D5W RTU 1 GM/50 ML RTUPB IV ONE (14:13)
[2018-04-26] MEDS ORDERED: PROPOFOL INJ 200 MG/20 ML VIAL IV ONE (14:34)
[2018-04-26] MEDS ORDERED: ONDANSETRON HCL INJ/PF 4 MG/2 ML SDV ONE (14:34)
[2018-04-26] MEDS ORDERED: MIDAZOLAM 2 MG/2 ML INJ ONE (14:34)
[2018-04-26] MEDS ORDERED: FENTANYL CITRATE INJ/PF 100 MCG/2 ML AMPUL ONE (14:34)
[2018-04-26] MEDS ORDERED: FENTANYL CITRATE INJ/PF 100 MCG/2 ML AMPUL IV PRN ×3 (15:53)
[2018-04-26] MEDS ORDERED: MORPHINE SULFATE 10 MG/ML INJ IV PRN (15:53)
[2018-04-26] MEDS ORDERED: MEPERIDINE HCL/PF INJ 25 MG/1 ML DISP.SYRIN IV PRN (15:53)
[2018-04-26] MEDS ORDERED: DIPHENHYDRAMINE HCL 50 MG/ML VIAL IV PRN (15:53)
[2018-04-26] MEDS ORDERED: PROMETHAZINE HCL INJ 25 MG/1 ML VIAL IV PRN ×2 (15:53)
--- NOTE | 2018-04-26 16:03 | Discharge Summary ---
Discharge Summary (SDC) - Discharge Final Diagnosis: #1 gangrene right third digit. Diabetes mellitus type 2. 3. Tobacco use disorder. 4. Neuropathy. Date of Surgery: 04/26/18 Discharge Date: 04/26/18 Condition: Good Treatment or Instructions: Discharge home [after recovery per ASU criteria]. Diet , diabetic, as tolerated, when fully awake advance as tolerated. Activities within moderation encouraged. Follow up in my office by appointment in about [1 week]. Call for appointment. Leave wounds [covered], [keep clean and dry, until office visit in 1 week]. Hold of on school/work [until evaluation in office]. Meds per med rec. Percocet. May shower [in 48 hrs], [try to keep operated area as dry as possible]. Prescriptions: Oxycodone HCl/Acetaminophen [Percocet 5-325 mg Tablet] 1 tab PO ASDIR PRN #15 tab PRN Reason: Referrals: VENECIA PRUITT MD [Primary Care Provider] - Discharge Diet: Other (Comments) - Diabetic. Respiratory Treatments at Home: Deep Breathing/Coughing Discharge Activity: Activity As Tolerated Report the Following to Your Physician Immediately: Shortness of Breath, Unusual Bleeding
--- NOTE | 2018-04-26 16:09 | Operative Report ---
Operative Report DATE OF SURGERY: 04/26/18 PREOPERATIVE DIAGNOSIS: #1 gangrene right third digit. Diabetes mellitus type 2. 3. Tobacco use disorder. 4. Neuropathy. POSTOPERATIVE DIAGNOSIS: #1 gangrene right third digit. Diabetes mellitus type 2. 3. Tobacco use disorder. 4. Neuropathy. OPERATION: Amputation of third digit right foot. SURGEON: WILLIAM PINTO ANESTHESIOLOGY RESIDENT: None. ANESTHESIA: GA TISSUE REMOVED OR ALTERED: Third digit right foot. Sent for pathology portion of the metatarsal head sent for culture. COMPLICATIONS: None. ESTIMATED BLOOD LOSS: 5 mL. INTRAOPERATIVE FINDINGS: Of satisfactory vascularity at base. Somewhat soft bone of phalanx and head of metatarsal, consistent with bone necrosis. PROCEDURE: The right lower extremity was prepared with Betadine, including entire foot, was draped out with sterile linen. After the universal timeout, in which it was verified that the patient continued to get IV antibiotic and it was the right lower extremity digit that was to be removed, the procedure commenced. The patient has had toes 2 3 and 4 affected with necrosis. #4 has resolved and #2 almost resolved leaving the third to be removed. The patient is agreeable preoperatively. A circumferential skin incision was made extending down to the extensor tendon. The tendon was placed on traction and transected just above the level of the metatarsal head. The phalanx was now transected using a small bone cutter. The flexor tendon was now transected above the level of the metatarsal. The remaining portion of the bony phalanx was removed and submitted for culture. The remainder of the toe was sent for pathology. The articular surface of the metatarsal presented and was used as reference size of the head and a portion of the metatarsal using rongeurs. Remaining nonviable tissues such as tendon removed. Moderate bleeding noted from the digital arteries which is controlled. The wound was now closed using interrupted sutures, vertical mattress of 3-0 PDS. Acticoat was now applied to the wound followed by a dressing with Kerlix. The procedure was now concluded. Copies dictated operative report to Dr. William Sweet MD.
[2018-04-26] MEDS: FENTANYL CITRATE INJ/PF 100 MCG/2 ML AMPUL ONE ×2 (16:17→16:30)
[2018-04-26] MEDS ORDERED: OXYCODONE-ACETAMINOPHEN 5-325 MG TABLET ONE (17:14)
[2018-04-26 19:05] VITALS: BP 131/68
== END 2018-04-26 18:25 | disposition home or self-care (01) ==
LOC: OROUT 11:55
PROVIDERS: ATTEND Surgery
DX: E11.52 Type 2 diabetes mellitus with diabetic peripheral angiopathy with gangrene (principal); I96 Gangrene, not elsewhere classified; M86.171 Other acute osteomyelitis, right ankle and foot; M86.671 Other chronic osteomyelitis, right ankle and foot; B95.61 Methicillin susceptible Staphylococcus aureus infection as the cause of diseases classified elsewhere; E78.00 Pure hypercholesterolemia, unspecified; J43.9 Emphysema, unspecified; F17.210 Nicotine dependence, cigarettes, uncomplicated; Z79.899 Other long term (current) drug therapy; Z79.82 Long term (current) use of aspirin; Z79.4 Long term (current) use of insulin; Z91.041 Radiographic dye allergy status
CPT/HCPCS: 28820; 93005; 36415 ×2; 87070; 87205; 82962; 82947; 84132; 85027; 87075; 87077; 80048; 87186; 88304 ×2; 88311; 71046; 93010; J2250; J0690; J3010; J3490; J0330; J2405; S0020; J2704; 1480

== ENCOUNTER 2018-04-29 15:39 | Inpatient (IN) | payer MEDICAID ==
[2018-04-29] MEDS ORDERED: NORMAL SALINE 1000 ML 1,000 ML IV ONE ×2 (15:55→17:32)
[2018-04-29] MEDS ORDERED: FAMOTIDINE INJ/PF 20 MG/2 ML SDV IV ONE (15:55)
[2018-04-29] MEDS ORDERED: ONDANSETRON HCL INJ/PF 4 MG/2 ML SDV IV ONE (15:55)
[2018-04-29 15:56] LABS: HEMATOCRIT 36.8 % (36.0-47.0); HEMOGLOBIN 12.1 g/dL (12.0-15.5); MEAN CORPUSCULAR HEMOGLOBIN 32.1 pg (27.0-33.4); MEAN CORPUSCULAR VOLUME 98 fl (80-97); PLATELET COUNT 391 10^3/uL (150-450); RED BLOOD COUNT 3.77 10^6/uL (3.72-5.28); WHITE BLOOD COUNT 16.6 10^3/uL (4.0-10.5)
--- NOTE | 2018-04-29 15:58 | ER Document Report ---
ED GI/ - General Stated Complaint: WEAKNESS Time Seen by Provider: 04/29/18 15:45 Primary Care Provider: VENECIA PRUITT MD [Primary Care Provider] - Follow up as needed Mode of Arrival: Stretcher Information source: Patient TRAVEL OUTSIDE OF THE [place] IN LAST 30 DAYS: No - HPI Patient complains to provider of: Abdominal pain, Diarrhea, Vomiting Onset: This morning Timing/Duration: Gradual, Persistent Quality of pain: Achy, Cramping Severity at maximum: Moderate Severity in ED: Moderate Location: Epigastric, RUQ Associated symptoms: Diarrhea, Nausea, Vomiting Exacerbated by: Denies Relieved by: Denies Notes: 04/29/18 15:56 Patient is a 58-year-old female presenting to the emergency room via EMS for diarrhea, vomiting, crampy abdominal pain and generalized weakness, symptoms started in the middle the night and have worsened throughout the day, she reports multiple episodes of watery diarrhea but denies seeing any blood in it, no blood in her vomit as well, denies fever, denies any questionable food consumption, denies any sick contacts, no recent traveling, she was on Augmentin recently but cannot recall what for, states she was on it approximately 1 week ago - Related Data Allergies/Adverse Reactions: IVP contrast dye Allergy (Uncoded 04/22/18 09:55) Hives Past Medical History - General Information source: Patient - Social History Smoking Status: Unknown if Ever Smoked Family History: CAD, Malignancy, Other - unknown - Past Medical History Cardiac Medical History: Reports: Hx Hypercholesterolemia, Hx Hypertension Denies: Hx Coronary Artery Disease, Hx Heart Attack Pulmonary Medical History: Reports: Hx Bronchitis - "At least twice a year" , Hx COPD Denies: Hx Asthma, Hx Pneumonia Neurological Medical History: Denies: Hx Cerebrovascular Accident, Hx Seizures Endocrine Medical History: Reports: Hx Diabetes Mellitus Type 1 Renal/ Medical History: Denies: Hx Peritoneal Dialysis Musculoskeletal Medical History: Denies Hx Arthritis Past Surgical History: Reports: Hx Appendectomy - Immunizations Hx Diphtheria, Pertussis, Tetanus Vaccination: Yes Review of Systems - Review of Systems Constitutional: Weakness EENT: No symptoms reported Cardiovascular: No symptoms reported Respiratory: No symptoms reported Gastrointestinal: See HPI Genitourinary: No symptoms reported Female Genitourinary: No symptoms reported Musculoskeletal: No symptoms reported Skin: No symptoms reported Hematologic/Lymphatic: No symptoms reported Neurological/Psychological: No symptoms reported -: Yes All other systems reviewed and negative Physical Exam - Vital signs Vitals: Resp Pulse Ox 12 97 04/29/18 15:58 04/29/18 15:58 Interpretation: Normal - General General appearance: Alert - HEENT Head: Normocephalic, Atraumatic Eyes: Normal Pupils: PERRL - Respiratory Respiratory status: No respiratory distress Chest status: Nontender Breath sounds: Normal Chest palpation: Normal - Cardiovascular Rhythm: Regular Heart sounds: Normal auscultation Murmur: No - Abdominal Inspection: Normal Distension: No distension Bowel sounds: Normal Tenderness: Tender - Epigastric and right upper quadrant Organomegaly: No organomegaly - Back Back: Normal, Nontender - Extremities General upper extremity: Normal inspection, Nontender, Normal color, Normal ROM, Normal temperature General lower extremity: Normal inspection, Nontender, Normal color, Normal ROM, Normal temperature, Normal weight bearing. No: Ced's sign - Neurological Neuro grossly intact: Yes Cognition: Normal Orientation: AAOx4 [place] Coma Scale Eye Opening: Spontaneous Paul Coma Scale Verbal: Oriented [place] Coma Scale Motor: Obeys Commands Paul Coma Scale Total: 15 Speech: Normal Motor strength normal: LUE, RUE, LLE, RLE Sensory: Normal - Psychological Associated symptoms: Normal affect, Normal mood - Skin Skin Temperature: Warm Skin Moisture: Dry Skin Color: Normal Course - Re-evaluation Re-evalutation: 04/29/18 18:06 Patient discussed with hospitalist steam clothes press operator, Dr. Rios Bridges, requests I call Dr. Salcedo at [phone] to admit the patient, I placed the call but there was no answer 04/29/18 18:13 I placed a call back to Dr. Salcedo who took patient's information but stated he would provide the wood grainer hospitalist with the information to complete the admission, however patient is accepted for admission - Vital Signs Vital signs: Temp Pulse Resp BP Pulse Ox 16 113/47 L 96 04/29/18 17:01 04/29/18 17:01 04/29/18 17:01 - Laboratory Result Diagrams: 04/29/18 15:28 04/29/18 15:28 Laboratory results interpreted by me: 04/29/18 04/29/18 15:28 15:28 WBC 16.6 H MCV 98 H RDW 15.0 H Seg Neuts % (Manual) 81 H Band Neutrophils % 7 H Lymphocytes % (Manual) 4 L Abs Neuts (Manual) 14.6 H Potassium 6.1 H* BUN 45 H Creatinine 1.41 H Est GFR ( Amer) 46 L Est GFR (Non-Af Amer) 38 L Glucose 277 H Alkaline Phosphatase 131 H - Diagnostic Test Radiology reviewed: Image reviewed, Reports reviewed - EKG Interpretation by Me EKG shows normal: Sinus rhythm Rate: Normal Rhythm: NSR Additional EKG results interpreted by me: 04/29/18 18:06 Peak T waves in V2 V3 and V4 Discharge - Discharge Clinical Impression: Nausea vomiting and diarrhea, Dehydration, CONSTANCE (acute kidney injury), Hyperkalemia Condition: Fair Disposition: ADMITTED INPATIENT Admitting Provider: Hospitalist Unit Admitted: Telemetry Referrals: VENECIA PRUITT MD [Primary Care Provider] - Follow up as needed
[2018-04-29 16:04] LABS: ALANINE AMINOTRANSFERASE 30 U/L (9-52); ALBUMIN 4.5 g/dL (3.5-5.0); ALKALINE PHOSPHATASE 131 U/L (38-126); ANION GAP 11 (5-19); ASPARTATE AMINO TRANSFERASE 25 U/L (14-36); BILIRUBIN,DIRECT 0.2 mg/dL (0.0-0.4); BILIRUBIN,TOTAL 0.3 mg/dL (0.2-1.3); BLOOD UREA NITROGEN 45 mg/dL (7-20); CALCIUM 10.2 mg/dL (8.4-10.2); CARBON DIOXIDE 26 mmol/L (22-30); CHLORIDE 101 mmol/L (98-107); GLUCOSE 277 mg/dL (75-110); LIPASE 75.7 U/L (23-300); SODIUM 138.1 mmol/L (137-145); TOTAL PROTEIN 8.2 g/dL (6.3-8.2)
[2018-04-29 16:06] LABS: POTASSIUM 6.1 mmol/L (3.6-5.0)
[2018-04-29 16:21] LABS: ABSOLUTE LYMPHOCYTES# (MANUAL) 0.7 10^3/uL (0.5-4.7); ABSOLUTE MONOCYTES # (MANUAL) 0.7 10^3/uL (0.1-1.4); ABSOLUTE NEUTROPHILS# (MANUAL) 14.6 10^3/uL (1.7-8.2); BAND NEUTROPHILS % (MANUAL) 7 % (3-5); BASOPHILS % (MANUAL) 1 % (0-2); EOSINOPHILS % (MANUAL) 3 % (0-6); LYMPHOCYTES % (MANUAL) 4 % (13-45); MONOCYTES % (MANUAL) 4 % (3-13); SEGMENTED NEUTROPHILS % (MAN) 81 % (42-78); TOTAL CELLS COUNTED 100
[2018-04-29 16:22] LABS: PLATELET COMMENT ADEQUATE; TOXIC GRANULATION 2+; TOXIC VACUOLATION PRESENT
[2018-04-29 16:24] LABS: ANISOCYTOSIS SLIGHT; POIKILOCYTOSIS SLIGHT
[2018-04-29] MEDS ORDERED: INSULIN REG, HUMAN 100 UNIT/ML 3 ML VIAL (PYX) IV ONE (17:32)
[2018-04-29] MEDS ORDERED: DEXTROSE 50%-WATER 25 GM/50 ML DISP.SYRIN IV ONE ×2 (17:32→20:21)
[2018-04-29] MEDS ORDERED: CALCIUM GLUCONATE 1000 MG/10 ML INJ IV ONE ×2 (17:32→20:20)
--- NOTE | 2018-04-29 18:03 | RADIOLOGY REPORT (SQ) ---
EXAM DESCRIPTION: CT ABD/PELVIS NO ORAL OR IV COMPLETED DATE/TIME: 04/29/2018 5:46 pm REASON FOR STUDY: n/v/d COMPARISON: None. TECHNIQUE: CT scan of the abdomen and pelvis performed without intravenous or oral contrast. Images reviewed with lung, soft tissue, and bone windows. Reconstructed coronal and sagittal MPR images revi ewed. All images stored on PACS. All CT scanners at this facility use dose modulation, iterative reconstruction, and/or weight based d osing when appropriate to reduce radiation dose to as low as reasonably achievable (ALARA). [facility]: Dose Right [facility]: CareDose [facility]: Dose Right [facility]: Teradose 4D [facility]: [employer] RADIATION DOSE: CT Rad equipment meets quality standard of care and radiation dose reduction techniq ues were employed. CTDIvol: 6.1 mGy. DLP: 311 mGy-cm.mGy. LIMITATIONS: None. FINDINGS: LOWER CHEST: No significant findings. No nodules or infiltrates. NON-CONTRASTED LIVER, SPLEEN, ADRENALS: Evaluation limited by lack of IV contrast. No identified sign ificant masses. PANCREAS: No masses. No peripancreatic inflammatory changes. GALLBLADDER: No identified stones by CT criteria. No inflammatory changes to suggest cholecystitis. RIGHT KIDNEY AND URETER: No suspicious masses. Assessment limited by lack of IV contrast. No signif icant calcifications. No hydronephrosis or hydroureter. LEFT KIDNEY AND URETER: No suspicious masses. Assessment limited by lack of IV contrast. No signifi cant calcifications. No hydronephrosis or hydroureter. AORTA AND RETROPERITONEUM: No aneurysm. No retroperitoneal masses or adenopathy. BOWEL AND PERITONEAL CAVITY: No obvious masses or inflammatory changes. No free fluid. APPENDIX: Not identified. PELVIS, BLADDER, AND ABDOMINAL WALL:No abnormal masses. No free fluid. Bladder normal. BONES: No significant findings. OTHER: No other significant finding. IMPRESSION: NO SIGNIFICANT OR ACUTE PROCESS IN THE ABDOMEN OR PELVIS. COMMENT: Quality ID # [id number]: Final reports with documentation of one or more dose reduction techniques (e.g., Automated exposure control, adjustment of the mA and/or kV according to patient size, use of iterative reconstruction technique) TECHNICAL DOCUMENTATION: JOB ID: [id number] [employer]- All Rights Reserved Reading location - IP/workstation name: [email or web address]
[2018-04-29] MEDS ORDERED: MAGNESIUM HYDROXIDE SUSP 30 ML UDCUP PO PRN (19:48)
[2018-04-29] MEDS ORDERED: ONDANSETRON HCL INJ/PF 4 MG/2 ML SDV IV PRN (19:48)
[2018-04-29] MEDS ORDERED: ONDANSETRON 4 MG TAB.RAPDIS PO PRN (19:48)
[2018-04-29] MEDS ORDERED: ACETAMINOPHEN 650 MG SUPP.RECT PR PRN (19:48)
[2018-04-29] MEDS ORDERED: INSULIN REG, HUMAN 100 UNIT/ML 3 ML VIAL (PYX) SUBCUT ONE (20:23)
[2018-04-29] MEDS ORDERED: SODIUM BICARBONATE 8.4% INJ 50 MEQ/50 ML DISP.SYRIN IV ONE (20:24)
[2018-04-29] MEDS ORDERED: ALBUTEROL SULFATE 0.083% NEB 2.5 MG/3 ML AMPUL NEB ONE (20:25)
[2018-04-29] MEDS ORDERED: NITROGLYCERIN 0.4 MG/TAB 25 TAB/BOTTLE SL PRN (21:20)
--- NOTE | 2018-04-29 21:20 | PDOC H&P ---
History of Present Illness Admission Date/PCP: 04/29/18 18:21 VENECIA PRUITT MD Patient complains of: Intractable nausea, vomiting and diarrhea History of Present Illness: ISRAEL DIA is a 58 year old female with history of multiple medical problems that will be mentioned below who presented to the emergency room with acute onset of intractable nausea vomiting and diarrhea since noon today. She describes her diarrhea as explosive and watery with stool incontinence without melena or bright red bleeding per rectum. She has been having associated right paraumbilical abdominal cramps. She denies any bilious vomitus or hematemesis. She has urinary incontinence but denies any dysuria, oliguria or hematuria or flank pain. She denies any history of chronic kidney disease. Upon presentation to the ER, her blood pressure was 100/63 with a pulse of 107 respiratory rate of 18, pulse oximetry 96% on room air. Labs revealed a leukocytosis of 16.6 with 81% neutrophilia and 7% bandemia, hemoglobin and hematocrit were 12.1 and 98 with platelets of 391. Her CMP was remarkable for a potassium of 6.1 BUN of 45 and creatinine of 1.41 with a blood glucose of 277 and alk phos of 131. Her serum lipase was normal at 75.7. Her abdominal pelvic CT scan revealed no acute abdominal abnormalities. EKG showed normal sinus rhythm with a rate of 99 with slightly peaked T waves in V2. The patient was given hydration with IV normal saline and was ordered aggressive management for her hyperkalemia. She will be admitted to a medical monitored bed for further evaluation and management. Past Medical History Cardiac Medical History: Reports: Hyperlipidema, Hypertension Denies: Coronary Artery Disease, Myocardial Infarction Pulmonary Medical History: Reports: Bronchitis - "At least twice a year" , Chronic Obstructive Pulmonary Disease (COPD) Denies: Asthma, Pneumonia Neurological Medical History: Denies: Seizures Endocrine Medical History: Reports: Diabetes Mellitus Type 1 Musculoskeltal Medical History: Denies: Arthritis Hematology: Reports: Anemia - Pt states currently anemic Past Surgical History Past Surgical History: Reports: Appendectomy, Tubal Ligation, Other - right 3rd tow amputation for gangrene Social History Smoking Status: Current Every Day Smoker - Smokes less than a pack of cigarettes per day Amount of Alcoholic Beverages Per Day: Drinks beer occasionally Family History Family History: CAD, Malignancy, Other - unknown Parental Family History Reviewed: Yes Children Family History Reviewed: Yes Sibling(s) Family History Reviewed.: Yes Medication/Allergy Home Medications: Amitriptyline HCl [Elavil 25 mg Tablet] 25 mg PO QHS 04/29/18 Amlodipine Besylate [Norvasc 5 mg Tablet] 5 mg PO DAILY 04/29/18 Aspirin [Ecotrin 81 mg EC Tablet] 81 mg PO DAILY 04/29/18 Atorvastatin Calcium [Lipitor 40 mg Tablet] 40 mg PO QHS 04/29/18 Gabapentin [Neurontin 300 mg Capsule] 600 mg PO Q12 04/29/18 Insulin Aspart [Novolog Flexpen] 0 unit SQ .SLIDING SCALE 04/29/18 Insulin NPH Hum/Reg Insulin Hm [Novolin 70-30 Flexpen] 15 unit SQ Q12 04/29/18 Lisinopril [Zestril] 20 mg PO DAILY 04/29/18 Lovastatin [Mevacor] 20 mg PO QHS 04/29/18 Nitroglycerin 0.4 mg PO Q5HP PRN 04/29/18 Oxycodone HCl/Acetaminophen [Percocet 5-325 mg Tablet] 1 tab PO DAILYP PRN 04/29/18 Allergies/Adverse Reactions: IVP contrast dye Allergy (Uncoded 04/22/18 09:55) Hives Review of Systems Review of Systems: As per history of present illness. All pertinent systems were reviewed above. Constitutional, HEENT, cardiovascular, respiratory, GI, , musculoskeletal, neuro, psychiatric, endocrine, integumentary and hematologic systems were revi ewed and are otherwise negative/unremarkable except for positive findings mentioned above in the HPI. Physical Exam Vital Signs: Temp Pulse Resp BP Pulse Ox 16 113/47 L 96 04/29/18 17:01 04/29/18 17:01 04/29/18 17:01 Intake & Output 04/28/18 04/29/18 04/30/18 06:59 06:59 06:59 Weight 63.503 kg Exam: Generally: Pleasant middle-aged female in no acute distress Vital signs-as listed Head - atraumatic, normocephalic. Pupils - equal, round and reactive to light and accommodation. Extraocular movements are intact. No scleral icterus. Oropharynx - moist mucous membranes and tongue. No pharyngeal erythema or exudate. Neck - supple. No JVD. Carotid pulses 2+ bilaterally. No carotid bruits. No palpable thyromegaly or lymphadenopathy. Cardiovascular - regular rate and rhythm. Normal S1 and S2. No murmurs, gallops or rubs. Lungs - clear to auscultation bilaterally. Abdomen - soft and nontender. Positive bowel sounds. No palpable organomegaly or masses. Extremities - no pitting edema, clubbing or cyanosis. She is status post amputation of the right third toe with applied dressing. Neuro - grossly non-focal. Skin -as above otherwise no rashes. Breast, pelvic and rectal - deferred Results Laboratory Results: 04/29/18 15:28 04/29/18 15:28 04/29/18 04/29/18 15:28 15:28 WBC 16.6 H RBC 3.77 Hgb 12.1 Hct 36.8 MCV 98 H MCH 32.1 MCHC 33.0 RDW 15.0 H Plt Count 391 Seg Neutrophils % Not Reportable Lymphocytes % Not Reportable Monocytes % Not Reportable Eosinophils % Not Reportable Basophils % Not Reportable Absolute Neutrophils Not Reportable Absolute Lymphocytes Not Reportable Absolute Monocytes Not Reportable Absolute Eosinophils Not Reportable Absolute Basophils Not Reportable Sodium 138.1 Potassium 6.1 H* Chloride 101 Carbon Dioxide 26 Anion Gap 11 BUN 45 H Creatinine 1.41 H Est GFR ( Amer) 46 L Est GFR (Non-Af Amer) 38 L Glucose 277 H Calcium 10.2 Total Bilirubin 0.3 AST 25 ALT 30 Alkaline Phosphatase 131 H Total Protein 8.2 Albumin 4.5 Lipase 75.7 Impressions: Abdomen/Pelvis CT 04/29/18 17:33 IMPRESSION: NO SIGNIFICANT OR ACUTE PROCESS IN THE ABDOMEN OR PELVIS. Assessment and Plan - Diagnosis (1) CONSTANCE (acute kidney injury) Is this a current diagnosis for this admission?: Yes Plan: The patient will be admitted to a medically monitored bed. She will be placed on hydration with IV normal saline. We will hold her lisinopril and follow her BMP. This is likely prerenal from recurrent nausea vomiting and diarrhea and dehydration. (2) Hyperkalemia Is this a current diagnosis for this admission?: Yes Plan: Her potassium will be aggressively managed and followed. (3) Nausea vomiting and diarrhea Is this a current diagnosis for this admission?: Yes Plan: She will be placed on as needed antiemetics. This could be related to acute gastroenteritis. Stool studies will be obtained. She had a recent irritation of the right third toe and antibiotic therapy and her C. difficile was currently pending. (4) Uncontrolled diabetes mellitus Qualifiers: Diabetes mellitus type: type 1 Glycemic state: with hyperglycemia Qualified Code(s): E10.65 - Type 1 diabetes mellitus with hyperglycemia Is this a current diagnosis for this admission?: Yes Plan: We will placed on supplemental coverage with NovoLog and continue her home basal coverage with NPH. (5) Dehydration Is this a current diagnosis for this admission?: Yes Plan: She will be hydrated as mentioned above and her BMP will be followed. (6) Hypertension Is this a current diagnosis for this admission?: Yes Plan: We will hold her lisinopril and continue her amlodipine (7) Tobacco abuse Is this a current diagnosis for this admission?: Yes Plan: I counseled the patient for smoking cessation and the patient will receive further counseling here. 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 - Time Medications reviewed and adjusted accordingly: Yes Anticipated discharge: Home Within: within 36 hours - Inpatient Certification Based on my medical assessment, after consideration of the patient's comorbidities, presenting symptoms, or acuity I expect that the services needed warrant INPATIENT care.: Yes I certify that my determination is in accordance with my understanding of Medicare's requirements for reasonable and necessary INPATIENT services [42 CFR 412.3e].: Yes Medical Necessity: Need For IV Fluids, Need For Continuous Telemetry Monitoring, Risk of Complication if Not Cared For in Hospital - DKA - Plan Summary Plan Summary: DVT prophylaxis will be provided substance Lovenox injection flexors was addressed with IV PPI therapy given her recurrent nausea and vomiting for the possibility of underlying acute gastritis. The plan of care was discussed in details with the patient. I answered all questions. The patient agreed to proceed with the above-mentioned plan. The patient is presumably full code. This note was created by [employer] software and may contain typo errors that may have not been proofread
[2018-04-29] MEDS ORDERED: DEXTROSE 50%-WATER 25 GM/50 ML DISP.SYRIN IV PRN ×2 (21:25)
[2018-04-29] MEDS ORDERED: DEXTROSE 40% GEL 15 GM TUBE PO PRN ×2 (21:25)
[2018-04-29] MEDS ORDERED: GLUCAGON,HUMAN RECOMB 1 MG INJ IM PRN (21:25)
[2018-04-29 21:51] LABS: APPEARANCE,URINE CLEAR; BILIRUBIN,URINE NEGATIVE (NEGATIVE); COLOR,URINE YELLOW; GLUCOSE, URINE 150 mg/dL (NEGATIVE); KETONES,URINE NEGATIVE (NEGATIVE); LEUKOCYTE ESTERASE,URINE NEGATIVE (NEGATIVE); NITRITE,URINE NEGATIVE (NEGATIVE); PROTEIN,URINE NEGATIVE (NEGATIVE); URINE SPECIFIC GRAVITY 1.018; UROBILINOGEN,URINE NEGATIVE mg/dL (<2.0)
[2018-04-29] MEDS ORDERED: REG INSULIN SQ SCH (22:00)
[2018-04-29] MEDS ORDERED: HUM INSULIN NPH/REG INSULIN HM 100 UNIT/1 ML 3 ML SUBCUT SCH (22:00)
[2018-04-29] MEDS ORDERED: INSULIN NPH HUM SQ SCH (22:00)
[2018-04-29] MEDS: PANTOPRAZOLE SODIUM 40 MG VIAL IV SCH (22:39)
[2018-04-29] MEDS: ATORVASTATIN CALCIUM 40 MG TABLET PO SCH (22:40)
[2018-04-29] MEDS: OXYCODONE-ACETAMINOPHEN 5-325 MG TABLET PO PRN (22:40)
[2018-04-29] MEDS: GABAPENTIN 300 MG CAPSULE PO SCH (22:40)
[2018-04-29] MEDS: NORMAL SALINE 1000 ML 1,000 ML IV PRN (22:41)
[2018-04-29] MEDS: INSULIN LISPRO 100 UNIT/ML 3 ML VIAL SUBCUT SCH (22:45)
--- NOTE | 2018-04-29 22:54 | EKG REPORT ---
SEVERITY:- NORMAL ECG - SINUS RHYTHM : Confirmed by: Phoebe Mccracken 29-Apr-2018 22:54:39
[2018-04-30] MEDS: OXYCODONE-ACETAMINOPHEN 5-325 MG TABLET PO PRN ×3 (03:36→19:53)
[2018-04-30 05:20] LABS: ABSOLUTE BASOPHILS # (AUTO) 0.1 10^3/uL (0.0-0.2); ABSOLUTE EOSINOPHILS # (AUTO) 0.3 10^3/uL (0.0-0.6); ABSOLUTE LYMPHOCYTES (AUTO) 1.6 10^3/uL (0.5-4.7); ABSOLUTE MONOCYTES (AUTO) 0.7 10^3/uL (0.1-1.4); ABSOLUTE NEUT (AUTO) 7.3 10^3/uL (1.7-8.2); BASOPHILS % (AUTO) 0.6 % (0-2); EOSINOPHILS % (AUTO) 2.9 % (0-6); HEMATOCRIT 28.2 % (36.0-47.0); HEMOGLOBIN 9.5 g/dL (12.0-15.5); LYMPHOCYTES % (AUTO) 15.8 % (13-45); MEAN CORPUSCULAR HEMOGLOBIN 32.2 pg (27.0-33.4); MEAN CORPUSCULAR HGB CONC 33.6 g/dL (32.0-36.0); MEAN CORPUSCULAR VOLUME 96 fl (80-97); MONOCYTES % (AUTO) 6.7 % (3-13); PLATELET COUNT 255 10^3/uL (150-450); RED BLOOD COUNT 2.94 10^6/uL (3.72-5.28); RED CELL DISTRIBUTION WIDTH 14.6 % (11.5-14.0); TOTAL CELLS COUNTED % (AUTO) 100 %; WHITE BLOOD COUNT 9.9 10^3/uL (4.0-10.5)
[2018-04-30 05:34] LABS: ANION GAP 9 (5-19); BLOOD UREA NITROGEN 30 mg/dL (7-20); CALCIUM 9.4 mg/dL (8.4-10.2); CARBON DIOXIDE 23 mmol/L (22-30); CHLORIDE 107 mmol/L (98-107); SODIUM 138.5 mmol/L (137-145)
[2018-04-30 05:45] LABS: POTASSIUM 4.2 mmol/L (3.6-5.0)
[2018-04-30 05:46] LABS: GLUCOSE 53 mg/dL (75-110)
[2018-04-30] MEDS: INSULIN LISPRO 100 UNIT/ML 3 ML VIAL SUBCUT SCH ×4 (08:37→21:36)
[2018-04-30] MEDS: ACETAMINOPHEN 325 MG TABLET PO PRN (08:39)
[2018-04-30] MEDS: NORMAL SALINE 1000 ML 1,000 ML IV PRN ×2 (10:07→21:36)
[2018-04-30] MEDS: GABAPENTIN 300 MG CAPSULE PO SCH ×2 (10:08→16:42)
[2018-04-30] MEDS: PANTOPRAZOLE SODIUM 40 MG VIAL IV SCH ×2 (10:08→21:37)
[2018-04-30] MEDS: ENOXAPARIN SODIUM INJ 30 MG/0.3 ML DISP.SYRIN SUBCUT SCH (10:09)
[2018-04-30] MEDS: AMLODIPINE BESYLATE 5 MG TABLET PO SCH (15:48)
--- NOTE | 2018-04-30 20:05 | PDOC PROGRESS REPORT ---
Subjective Progress Note for:: 04/30/18 Subjective:: Doing better, feeling better. Nausea/vomiting/diarrhea improving. No fever/chills, no chest pain or shortness of breath or palpitations. Reason For Visit: CONSTANCE, HYPERKALEMIA, DEHYDRATION Physical Exam Vital Signs: Temp Pulse Resp BP Pulse Ox 98.2 F 87 18 146/54 H 95 04/30/18 15:18 04/30/18 15:18 04/30/18 15:18 04/30/18 15:18 04/30/18 15:18 Intake & Output 04/29/18 04/30/18 05/01/18 06:59 06:59 06:59 Intake Total 320 2003 Balance 320 2003 Weight 66.4 kg GEN: NAD, well-developed, well-nourished CV: RRR, NL S1S2 LUNGS: CTA bilaterally ABDOMEN Soft, NT, +BS EXTERMITIES: No e/c/c NEURO: Alert, oriented x3, nonfocal Results Laboratory Results: 04/30/18 04:53 04/30/18 04:53 04/29/18 04/30/18 04/30/18 21:01 04:53 04:53 WBC 9.9 RBC 2.94 L Hgb 9.5 L D Hct 28.2 L MCV 96 MCH 32.2 MCHC 33.6 RDW 14.6 H Plt Count 255 Seg Neutrophils % 74.0 Lymphocytes % 15.8 Monocytes % 6.7 Eosinophils % 2.9 Basophils % 0.6 Absolute Neutrophils 7.3 Absolute Lymphocytes 1.6 Absolute Monocytes 0.7 Absolute Eosinophils 0.3 Absolute Basophils 0.1 Sodium 138.5 Potassium 4.2 D Chloride 107 Carbon Dioxide 23 Anion Gap 9 BUN 30 H Creatinine 0.61 Est GFR ( Amer) > 60 Est GFR (Non-Af Amer) > 60 Glucose 53 L Calcium 9.4 Urine Color YELLOW Urine Appearance CLEAR Urine pH 5.0 Ur Specific [place] 1.018 Urine Protein NEGATIVE Urine Glucose (UA) 150 H Urine Ketones NEGATIVE Urine Blood NEGATIVE Urine Nitrite NEGATIVE Ur Leukocyte Esterase NEGATIVE Urine WBC (Auto) 1 Urine RBC (Auto) 1 Stool for White Cells 04/30/18 12:24 WBC RBC Hgb Hct MCV MCH MCHC RDW Plt Count Seg Neutrophils % Lymphocytes % Monocytes % Eosinophils % Basophils % Absolute Neutrophils Absolute Lymphocytes Absolute Monocytes Absolute Eosinophils Absolute Basophils Sodium Potassium Chloride Carbon Dioxide Anion Gap BUN Creatinine Est GFR ( Amer) Est GFR (Non-Af Amer) Glucose Calcium Urine Color Urine Appearance Urine pH Ur Specific [place] Urine Protein Urine Glucose (UA) Urine Ketones Urine Blood Urine Nitrite Ur Leukocyte Esterase Urine WBC (Auto) Urine RBC (Auto) Stool for White Cells NO WBCs SEEN Impressions: Abdomen/Pelvis CT 04/29/18 17:33 IMPRESSION: NO SIGNIFICANT OR ACUTE PROCESS IN THE ABDOMEN OR PELVIS. Assessment and Plan - Diagnosis (1) CONSTANCE (acute kidney injury) Is this a current diagnosis for this admission?: Yes (2) Dehydration Is this a current diagnosis for this admission?: Yes (3) Hyperkalemia Is this a current diagnosis for this admission?: Yes (4) Hypertension Is this a current diagnosis for this admission?: Yes (5) Nausea vomiting and diarrhea Is this a current diagnosis for this admission?: Yes (6) Tobacco abuse Is this a current diagnosis for this admission?: Yes (7) Uncontrolled diabetes mellitus Qualifiers: Diabetes mellitus type: type 1 Glycemic state: with hyperglycemia Qualified Code(s): E10.65 - Type 1 diabetes mellitus with hyperglycemia Is this a current diagnosis for this admission?: Yes - Plan Summary Plan Summary: Patient renal function has improved. We will continue IV fluid for now. H emoglobin has also come down, likely dilutional. Will follow CBC and Chem-7 in a.m. Smoking cessation counseling offered. Patient does not want nicotine patch at this time. Stool studies pending. Follow-up results, including C. difficile.
[2018-04-30] MEDS: ATORVASTATIN CALCIUM 40 MG TABLET PO SCH (21:36)
[2018-04-30] MEDS ORDERED: VANCOMYCIN HCL INJ 500 MG VIAL PO ONE (22:00)
[2018-04-30] MEDS ORDERED: VANCOMYCIN HCL INJ 500 MG VIAL ONE (23:42)
[2018-05-01] MEDS: VANCOMYCIN HCL INJ 500 MG VIAL PO SCH ×4 (02:31→22:01)
[2018-05-01] MEDS: GABAPENTIN 300 MG CAPSULE PO SCH ×3 (02:31→18:09)
[2018-05-01 07:37] LABS: ABSOLUTE EOSINOPHILS # (AUTO) 0.4 10^3/uL (0.0-0.6); ABSOLUTE LYMPHOCYTES (AUTO) 1.4 10^3/uL (0.5-4.7); ABSOLUTE MONOCYTES (AUTO) 0.4 10^3/uL (0.1-1.4); BASOPHILS % (AUTO) 0.8 % (0-2); EOSINOPHILS % (AUTO) 6.8 % (0-6); HEMATOCRIT 28.4 % (36.0-47.0); HEMOGLOBIN 9.6 g/dL (12.0-15.5); LYMPHOCYTES % (AUTO) 22.9 % (13-45); MEAN CORPUSCULAR HEMOGLOBIN 32.6 pg (27.0-33.4); MEAN CORPUSCULAR HGB CONC 33.9 g/dL (32.0-36.0); MEAN CORPUSCULAR VOLUME 96 fl (80-97); MONOCYTES % (AUTO) 5.6 % (3-13); PLATELET COUNT 268 10^3/uL (150-450); RED BLOOD COUNT 2.95 10^6/uL (3.72-5.28); SEGMENTED NEUTROPHILS % (AUTO) 63.9 % (42-78); TOTAL CELLS COUNTED % (AUTO) 100 %; WHITE BLOOD COUNT 6.3 10^3/uL (4.0-10.5)
[2018-05-01 07:47] LABS: ANION GAP 7 (5-19); BLOOD UREA NITROGEN 10 mg/dL (7-20); CALCIUM 9.8 mg/dL (8.4-10.2); CARBON DIOXIDE 25 mmol/L (22-30); CHLORIDE 107 mmol/L (98-107); GLUCOSE 180 mg/dL (75-110); POTASSIUM 4.5 mmol/L (3.6-5.0); SODIUM 139.3 mmol/L (137-145)
[2018-05-01] MEDS: PANTOPRAZOLE SODIUM 40 MG VIAL IV SCH ×2 (10:20→22:01)
[2018-05-01] MEDS: INSULIN LISPRO 100 UNIT/ML 3 ML VIAL SUBCUT SCH ×4 (10:20→22:43)
[2018-05-01] MEDS: AMLODIPINE BESYLATE 5 MG TABLET PO SCH (10:21)
[2018-05-01] MEDS: ENOXAPARIN SODIUM INJ 30 MG/0.3 ML DISP.SYRIN SUBCUT SCH (10:21)
--- NOTE | 2018-05-01 14:22 | PDOC PROGRESS REPORT ---
Subjective Progress Note for:: 05/01/18 Subjective:: Doing better, feeling better. Nausea/vomiting/diarrhea continues to improve. Denies any current abdominal discomfort. Stool tested positive for C. difficile, started on p.o. Vanco. No fever/chills, no chest pain or shortness of breath or palpitations. Reason For Visit: CONSTANCE, HYPERKALEMIA, DEHYDRATION Physical Exam Vital Signs: Temp Pulse Resp BP Pulse Ox 98.2 F 83 16 164/63 H 99 05/01/18 11:00 05/01/18 11:00 05/01/18 11:00 05/01/18 11:00 05/01/18 11:00 Intake & Output 04/30/18 05/01/18 05/02/18 06:59 06:59 06:59 Intake Total 320 3724 Balance 320 3724 Weight 66.4 kg 66.5 kg Results Laboratory Results: 05/01/18 06:48 05/01/18 06:48 04/30/18 05/01/18 05/01/18 12:24 06:48 06:48 WBC 6.3 RBC 2.95 L Hgb 9.6 L Hct 28.4 L MCV 96 MCH 32.6 MCHC 33.9 RDW 14.0 Plt Count 268 Seg Neutrophils % 63.9 Lymphocytes % 22.9 Monocytes % 5.6 Eosinophils % 6.8 H Basophils % 0.8 Absolute Neutrophils 4.0 Absolute Lymphocytes 1.4 Absolute Monocytes 0.4 Absolute Eosinophils 0.4 Absolute Basophils 0.0 Sodium 139.3 Potassium 4.5 Chloride 107 Carbon Dioxide 25 Anion Gap 7 BUN 10 Creatinine 0.46 L Est GFR ( Amer) > 60 Est GFR (Non-Af Amer) > 60 Glucose 180 H Calcium 9.8 Stool for White Cells NO WBCs SEEN Impressions: Abdomen/Pelvis CT 04/29/18 17:33 IMPRESSION: NO SIGNIFICANT OR ACUTE PROCESS IN THE ABDOMEN OR PELVIS. Assessment and Plan - Diagnosis (1) C. difficile colitis Is this a current diagnosis for this admission?: Yes (2) CONSTANCE (acute kidney injury) Is this a current diagnosis for this admission?: Yes (3) Dehydration Is this a current diagnosis for this admission?: Yes (4) Hyperkalemia Is this a current diagnosis for this admission?: Yes (5) Hypertension Is this a current diagnosis for this admission?: Yes (6) Nausea vomiting and diarrhea Is this a current diagnosis for this admission?: Yes (7) Tobacco abuse Is this a current diagnosis for this admission?: Yes (8) Uncontrolled diabetes mellitus Qualifiers: Diabetes mellitus type: type 1 Glycemic state: with hyperglycemia Qualified Code(s): E10.65 - Type 1 diabetes mellitus with hyperglycemia Is this a current diagnosis for this admission?: Yes (9) Anemia Qualifiers: Anemia type: unspecified type Qualified Code(s): D64.9 - Anemia, unspecified Is this a current diagnosis for this admission?: Yes - Plan Summary Plan Summary: Patient renal function has normalized, diarrhea improved. We will continue IV fluid for now. Vanco 125 mg orally every 6 for C. difficile. Hemoglobin is now stable. Will follow CBC and Chem-7 in a.m. Check anemia panel. Continued smoking cessation counseling.
[2018-05-01] MEDS: ATORVASTATIN CALCIUM 40 MG TABLET PO SCH (22:00)
[2018-05-01] MEDS: ZOLPIDEM TARTRATE 5 MG TABLET PO PRN ×2 (22:00→22:08)
[2018-05-01] MEDS: OXYCODONE-ACETAMINOPHEN 5-325 MG TABLET PO PRN ×2 (22:00→22:02)
[2018-05-02] MEDS: GABAPENTIN 300 MG CAPSULE PO SCH ×2 (03:27→09:51)
[2018-05-02] MEDS: VANCOMYCIN HCL INJ 500 MG VIAL PO SCH ×2 (03:28→10:31)
[2018-05-02 05:10] LABS: ABSOLUTE BASOPHILS # (AUTO) 0.1 10^3/uL (0.0-0.2); ABSOLUTE EOSINOPHILS # (AUTO) 0.3 10^3/uL (0.0-0.6); ABSOLUTE LYMPHOCYTES (AUTO) 1.8 10^3/uL (0.5-4.7); ABSOLUTE MONOCYTES (AUTO) 0.4 10^3/uL (0.1-1.4); ABSOLUTE RETICS # 0.033 10^6/uL (0.028-0.122); BASOPHILS % (AUTO) 1.1 % (0-2); HEMATOCRIT 30.6 % (36.0-47.0); HEMOGLOBIN 10.3 g/dL (12.0-15.5); LYMPHOCYTES % (AUTO) 32.1 % (13-45); MEAN CORPUSCULAR HEMOGLOBIN 31.8 pg (27.0-33.4); MEAN CORPUSCULAR HGB CONC 33.8 g/dL (32.0-36.0); MEAN CORPUSCULAR VOLUME 94 fl (80-97); MONOCYTES % (AUTO) 7.4 % (3-13); PLATELET COUNT 281 10^3/uL (150-450); RED BLOOD COUNT 3.25 10^6/uL (3.72-5.28); RED CELL DISTRIBUTION WIDTH 13.7 % (11.5-14.0); RETICULOCYTE COUNT (AUTO) 1.03 % (0.66-2.85); SEGMENTED NEUTROPHILS % (AUTO) 54.4 % (42-78); TOTAL CELLS COUNTED % (AUTO) 100 %; WHITE BLOOD COUNT 5.6 10^3/uL (4.0-10.5)
[2018-05-02 05:36] LABS: ANION GAP 10 (5-19); BLOOD UREA NITROGEN 12 mg/dL (7-20); CALCIUM 10.1 mg/dL (8.4-10.2); CARBON DIOXIDE 27 mmol/L (22-30); CHLORIDE 102 mmol/L (98-107); GLUCOSE 224 mg/dL (75-110); IRON(TIBC) 67.9 ug/dL (37-170); POTASSIUM 4.3 mmol/L (3.6-5.0); SODIUM 138.5 mmol/L (137-145)
[2018-05-02] MEDS: INSULIN LISPRO 100 UNIT/ML 3 ML VIAL SUBCUT SCH (08:50)
[2018-05-02] MEDS: ENOXAPARIN SODIUM INJ 30 MG/0.3 ML DISP.SYRIN SUBCUT SCH (09:51)
[2018-05-02] MEDS: ACETAMINOPHEN 325 MG TABLET PO PRN (09:51)
[2018-05-02] MEDS: PANTOPRAZOLE SODIUM 40 MG VIAL IV SCH ×2 (09:51→09:59)
[2018-05-02] MEDS: AMLODIPINE BESYLATE 5 MG TABLET PO SCH (09:51)
[2018-05-02 12:40] VITALS: BP 149/65
--- NOTE | 2018-05-02 20:14 | PDOC DISCHARGE SUMMARY ---
General - Admit/Disc Date/PCP Admission Date/Primary Care Provider: 04/29/18 18:21 VENECIA PRUITT MD Discharge Date: 05/02/18 - Discharge Diagnosis (1) C. difficile colitis Is this a current diagnosis for this admission?: Yes (2) CONSTANCE (acute kidney injury) Is this a current diagnosis for this admission?: Yes (3) Dehydration Is this a current diagnosis for this admission?: Yes (4) Hyperkalemia Is this a current diagnosis for this admission?: Yes (5) Hypertension Is this a current diagnosis for this admission?: Yes (6) Nausea vomiting and diarrhea Is this a current diagnosis for this admission?: Yes (7) Tobacco abuse Is this a current diagnosis for this admission?: Yes (8) Uncontrolled diabetes mellitus Is this a current diagnosis for this admission?: Yes (9) Anemia Is this a current diagnosis for this admission?: Yes - Additional Information Resuscitation Status: Full Code Prescriptions: Vancomycin HCl [Vancocin HCl] 125 mg PO Q6H 10 Days #40 capsule Home Medications: Amitriptyline HCl [Elavil 25 mg Tablet] 25 mg PO QHS 04/29/18 Amlodipine Besylate [Norvasc 5 mg Tablet] 5 mg PO DAILY 04/29/18 Aspirin [Ecotrin 81 mg EC Tablet] 81 mg PO DAILY 04/29/18 Atorvastatin Calcium [Lipitor 40 mg Tablet] 40 mg PO QHS 04/29/18 Gabapentin [Neurontin 300 mg Capsule] 600 mg PO Q12 04/29/18 Insulin Aspart [Novolog Flexpen] 0 unit SQ .SLIDING SCALE 04/29/18 Insulin NPH Hum/Reg Insulin Hm [Novolin 70-30 Flexpen] 15 unit SQ Q12 04/29/18 Lisinopril [Zestril] 20 mg PO DAILY 04/29/18 Lovastatin [Mevacor] 20 mg PO QHS 04/29/18 Nitroglycerin 0.4 mg PO Q5MP PRN 04/29/18 Oxycodone HCl/Acetaminophen [Percocet 5-325 mg Tablet] 1 tab PO DAILYP PRN 04/29/18 Vancomycin HCl [Vancocin HCl] 125 mg PO Q6H 10 Days #40 capsule 05/02/18 History of Present Illness History of Present Illness: ISRAEL DIA is a 58 year old female who presented with nausea vomiting and diarrhea. Evaluation in the ED significant for elevated BUN 45, creatinine 1.4. Potassium was elevated at 6.1. Hospital Course Hospital Course: Patient was admitted to the hospitalist service. She was treated with IV fluid. Her CONSTANCE has resolved. Urine drug screen was positive for C. difficile. Of note is that she had a history of recent antibiotics use. patient was started on Vanco orally. She is doing better now, diarrhea has improved, nausea and vomiting has resolved. Potassium has normalized. She is being discharged home in stable condition. Will treat with 10 additional days of vancomycin 125 mg p.o. every 6 hours. Physical Exam Vital Signs: Temp Pulse Resp BP Pulse Ox 98.4 F 77 17 149/65 H 98 05/02/18 07:00 05/02/18 07:00 05/02/18 07:00 05/02/18 07:00 05/02/18 07:00 Intake & Output 05/01/18 05/02/18 05/03/18 06:59 06:59 06:59 Intake Total 3724 1942 Balance 3724 1942 Weight 66.5 kg 66.6 kg GEN: NAD, well-developed, well-nourished CV: RRR, NL S1S2 LUNGS: CTA bilaterally ABDOMEN Soft, NT, +BS EXTERMITIES: No e/c/c NEURO: Alert, oriented x3, nonfocal Results Laboratory Results: 05/02/18 04:51 05/02/18 04:51 05/02/18 05/02/18 04:51 04:51 WBC 5.6 RBC 3.25 L Hgb 10.3 L Hct 30.6 L MCV 94 MCH 31.8 MCHC 33.8 RDW 13.7 Plt Count 281 Seg Neutrophils % 54.4 Lymphocytes % 32.1 Monocytes % 7.4 Eosinophils % 5.0 Basophils % 1.1 Absolute Neutrophils 3.0 Absolute Lymphocytes 1.8 Absolute Monocytes 0.4 Absolute Eosinophils 0.3 Absolute Basophils 0.1 Retic Count (auto) 1.03 Absolute Retic 0.033 Sodium 138.5 Potassium 4.3 Chloride 102 Carbon Dioxide 27 Anion Gap 10 BUN 12 Creatinine 0.44 L Est GFR ( Amer) > 60 Est GFR (Non-Af Amer) > 60 Glucose 224 H Calcium 10.1 Iron 67.9 TIBC 284 % Saturation 24 Ferritin 152.00 Vitamin B12 387.0 Folate 13.60 Impressions: Abdomen/Pelvis CT 04/29/18 17:33 IMPRESSION: NO SIGNIFICANT OR ACUTE PROCESS IN THE ABDOMEN OR PELVIS. Qualifiers - * PATIENT BEING DISCHARGED WITH ANY OF THE FOLLOWING DIAGNOSIS: No
== END 2018-05-02 13:08 | disposition home or self-care (01) | DRG 372 ==
LOC: ER 15:39 → EH 18:21 → 5 22:22
PROVIDERS: ADMIT Family Medicine; ATTEND Internal Medicine
DX: A04.72 Enterocolitis due to Clostridium difficile, not specified as recurrent (principal); N17.9 Acute kidney failure, unspecified; E87.5 Hyperkalemia; E86.0 Dehydration; E10.65 Type 1 diabetes mellitus with hyperglycemia; J44.9 Chronic obstructive pulmonary disease, unspecified; D64.9 Anemia, unspecified; I10 Essential (primary) hypertension; F17.210 Nicotine dependence, cigarettes, uncomplicated; Z90.49 Acquired absence of other specified parts of digestive tract; Z82.49 Family history of ischemic heart disease and other diseases of the circulatory system; Z79.4 Long term (current) use of insulin; Z91.041 Radiographic dye allergy status; Z89.411 Acquired absence of right great toe; Z79.82 Long term (current) use of aspirin
CPT/HCPCS: 36415; 74176; 80048; 80053; 81001; 82607; 82728; 82746; 82962; 83540; 83550; 83690; 85025; 85045; 87045; 87086; 87088; 87186; 87205; 87493; 89055; 93005; 93010; 96361; 96374; 96375; 99285; J0610; J1650; J1815; J2405; J3370; J3490; J7030; S0028; S0164

== ENCOUNTER → 2018-09-19 | Outpatient (CLI) | payer SELFPAY ==
[2018-09-19 08:18] LABS: ABSOLUTE EOSINOPHILS # (AUTO) 0.2 10^3/uL (0.0-0.6); ABSOLUTE LYMPHOCYTES (AUTO) 1.9 10^3/uL (0.5-4.7); ABSOLUTE MONOCYTES (AUTO) 0.5 10^3/uL (0.1-1.4); BASOPHILS % (AUTO) 0.6 % (0-2); EOSINOPHILS % (AUTO) 2.8 % (0-6); HEMATOCRIT 36.6 % (36.0-47.0); HEMOGLOBIN 12.3 g/dL (12.0-15.5); LYMPHOCYTES % (AUTO) 24.8 % (13-45); MEAN CORPUSCULAR HEMOGLOBIN 32.1 pg (27.0-33.4); MEAN CORPUSCULAR HGB CONC 33.5 g/dL (32.0-36.0); MEAN CORPUSCULAR VOLUME 96 fl (80-97); MONOCYTES % (AUTO) 6.7 % (3-13); PLATELET COUNT 381 10^3/uL (150-450); RED BLOOD COUNT 3.81 10^6/uL (3.72-5.28); RED CELL DISTRIBUTION WIDTH 13.9 % (11.5-14.0); SEGMENTED NEUTROPHILS % (AUTO) 65.1 % (42-78); TOTAL CELLS COUNTED % (AUTO) 100 %; WHITE BLOOD COUNT 7.7 10^3/uL (4.0-10.5)
== END ==
LOC: OD 07:05
PROVIDERS: ATTEND Family Medicine Geriatric Medicine
DX: D50.9 Iron deficiency anemia, unspecified (principal)
CPT/HCPCS: 36415; 85025

== ENCOUNTER → 2018-12-26 | Outpatient (CLI) | payer SELFPAY ==
[2018-12-27 08:45] LABS: ABSOLUTE BASOPHILS # (AUTO) 0.1 10^3/uL (0.0-0.2); ABSOLUTE EOSINOPHILS # (AUTO) 0.1 10^3/uL (0.0-0.6); ABSOLUTE LYMPHOCYTES (AUTO) 1.5 10^3/uL (0.5-4.7); ABSOLUTE MONOCYTES (AUTO) 0.5 10^3/uL (0.1-1.4); ABSOLUTE NEUT (AUTO) 4.9 10^3/uL (1.7-8.2); BASOPHILS % (AUTO) 1.2 % (0-2); EOSINOPHILS % (AUTO) 1.6 % (0-6); HEMATOCRIT 38.7 % (36.0-47.0); MEAN CORPUSCULAR HEMOGLOBIN 31.3 pg (27.0-33.4); MEAN CORPUSCULAR HGB CONC 33.6 g/dL (32.0-36.0); MEAN CORPUSCULAR VOLUME 93 fl (80-97); MONOCYTES % (AUTO) 6.6 % (3-13); PLATELET COUNT 329 10^3/uL (150-450); RED BLOOD COUNT 4.15 10^6/uL (3.72-5.28); RED CELL DISTRIBUTION WIDTH 14.3 % (11.5-14.0); SEGMENTED NEUTROPHILS % (AUTO) 69.6 % (42-78); TOTAL CELLS COUNTED % (AUTO) 100 %; WHITE BLOOD COUNT 7.1 10^3/uL (4.0-10.5)
[2018-12-27 09:09] LABS: ALBUMIN 4.1 g/dL (3.5-5.0); ALKALINE PHOSPHATASE 131 U/L (38-126); ASPARTATE AMINO TRANSFERASE 22 U/L (14-36); BILIRUBIN,DIRECT 0.2 mg/dL (0.0-0.4); BILIRUBIN,TOTAL 0.4 mg/dL (0.2-1.3); POTASSIUM 4.9 mmol/L (3.6-5.0); TOTAL PROTEIN 7.4 g/dL (6.3-8.2)
[2018-12-27 14:37] LABS: CREATININE URINE 52.5 mg/dL (Not Estab.)
== END ==
LOC: OD 08:24
PROVIDERS: ATTEND Family Medicine Geriatric Medicine
DX: E10.52 Type 1 diabetes mellitus with diabetic peripheral angiopathy with gangrene (principal); R94.5 Abnormal results of liver function studies; E87.5 Hyperkalemia; Z79.899 Other long term (current) drug therapy
CPT/HCPCS: 36415; 80076; 82043; 82570; 83036; 84132; 85025

== ENCOUNTER 2019-01-31 21:39 | Emergency (ER) | payer SELFPAY ==
[2019-01-31 21:47] VITALS: BP 160/87
--- NOTE | 2019-01-31 22:36 | ER Document Report ---
ED Medical Screen (RME) - General Chief Complaint: Abdominal Pain Stated Complaint: ABDOMINAL PAIN Time Seen by Provider: 01/31/19 22:24 Primary Care Provider: VENECIA PRUITT MD [Primary Care Provider] - Follow up as needed Notes: 58-year-old female with insulin-dependent diabetes mellitus and hypertension presents emergency department with acute left upper quadrant abdominal pain x3.5 hours. Patient states she was laying down the pain just came on suddenly. She never had this pain before, no history of abdominal surgeries. Exam: Well-appearing in mild distress, lungs clear to auscultation, regular cardiac rate and rhythm, abdominal exam limited in triage but patient does have some left upper quadrant tenderness to palpation I have greeted and performed a rapid initial assessment of this patient. A co mprehensive ED assessment and evaluation of the patient, analysis of test results and completion of medical decision making process will be conducted by an additional ED providers. TRAVEL OUTSIDE OF THE [place] IN LAST 30 DAYS: No - Related Data Allergies/Adverse Reactions: IVP contrast dye Allergy (Uncoded 01/31/19 22:24) Hives Past Medical History - Past Medical History Cardiac Medical History: Reports: Hx Hypercholesterolemia, Hx Hypertension Denies: Hx Coronary Artery Disease, Hx Heart Attack Pulmonary Medical History: Reports: Hx Bronchitis - "At least twice a year" , Hx COPD Denies: Hx Asthma, Hx Pneumonia Neurological Medical History: Denies: Hx Cerebrovascular Accident, Hx Seizures Endocrine Medical History: Reports: Hx Diabetes Mellitus Type 1 Renal/ Medical History: Denies: Hx Peritoneal Dialysis Musculoskeltal Medical History: Denies Hx Arthritis Past Surgical History: Reports: Hx Appendectomy, Hx Tubal Ligation, Other - right 3rd tow amputation for gangrene - Immunizations Hx Diphtheria, Pertussis, Tetanus Vaccination: Yes Physical Exam - Vital signs Vitals: Temp Pulse Resp BP Pulse Ox 98.4 F 86 18 160/87 H 97 01/31/19 21:46 01/31/19 21:46 01/31/19 21:46 01/31/19 21:46 01/31/19 21:46 Course - Vital Signs Vital signs: Temp Pulse Resp BP Pulse Ox 98.4 F 86 18 160/87 H 97 01/31/19 21:46 01/31/19 21:46 01/31/19 21:46 01/31/19 21:46 01/31/19 21:46 Doctor's Discharge - Discharge Referrals: VENECIA PRUITT MD [Primary Care Provider] - Follow up as needed
[2019-01-31 23:18] LABS: APPEARANCE,URINE SLIGHTLY-CLOUDY; BILIRUBIN,URINE NEGATIVE (NEGATIVE); COLOR,URINE YELLOW; GLUCOSE, URINE NEGATIVE (NEGATIVE); KETONES,URINE NEGATIVE (NEGATIVE); LEUKOCYTE ESTERASE,URINE NEGATIVE (NEGATIVE); NITRITE,URINE NEGATIVE (NEGATIVE); PROTEIN,URINE 30 mg/dL (NEGATIVE); URINE SPECIFIC GRAVITY 1.014; UROBILINOGEN,URINE NEGATIVE mg/dL (<2.0)
--- NOTE | 2019-01-31 23:41 | RADIOLOGY REPORT (SQ) ---
EXAM DESCRIPTION: XR ABDOMEN SUPINE AND ERECT WITH CHEST (ABD ACUTE SERIES) COMPLETED DATE/TME: 01/31/2019 22:34 CLINICAL HISTORY: 58 years, Female, LUQ abd pain acute COMPARISON: Chest x-ray 04/22/2018 NUMBER OF VIEWS: 3 TECHNIQUE: Upright chest with supine and erect views of the abdomen LIMITATIONS: None. FINDINGS: Heart size normal. Minimal scarring left lung base. Atheromatous change thoracic aorta. No pneumothorax. No free air under the hemidiaphragms. The bowel gas pattern is nonspecific. Abundant stool in the colon. Vascular calcifications IMPRESSION: No acute cardiopulmonary process. Abundant stool in the colon copyright 2010 [employer]- All Rights Reserved
--- NOTE | 2019-02-01 20:03 | EKG REPORT ---
SEVERITY:- NORMAL ECG - SINUS RHYTHM : Confirmed by: Amisha Perez MD 01-Feb-2019 20:02:40
== END 2019-02-01 02:26 | disposition left against medical advice (07) ==
LOC: ER 21:39
DX: R10.12 Left upper quadrant pain (principal); E10.9 Type 1 diabetes mellitus without complications; Z79.84 Long term (current) use of oral hypoglycemic drugs; Z98.51 Tubal ligation status; E78.00 Pure hypercholesterolemia, unspecified; I10 Essential (primary) hypertension
CPT/HCPCS: 74022; 81001; 93005; 93010; 99281

== ENCOUNTER → 2019-03-03 | Outpatient (CLI) | payer OTHER ==
[2019-03-03 09:57] LABS: ABSOLUTE EOSINOPHILS # (AUTO) 0.1 10^3/uL (0.0-0.6); ABSOLUTE LYMPHOCYTES (AUTO) 1.5 10^3/uL (0.5-4.7); ABSOLUTE MONOCYTES (AUTO) 0.5 10^3/uL (0.1-1.4); ABSOLUTE NEUT (AUTO) 5.8 10^3/uL (1.7-8.2); BASOPHILS % (AUTO) 0.2 % (0-2); EOSINOPHILS % (AUTO) 1.6 % (0-6); HEMATOCRIT 38.9 % (36.0-47.0); HEMOGLOBIN 13.2 g/dL (12.0-15.5); LYMPHOCYTES % (AUTO) 18.8 % (13-45); MEAN CORPUSCULAR HEMOGLOBIN 31.8 pg (27.0-33.4); MEAN CORPUSCULAR VOLUME 94 fl (80-97); MONOCYTES % (AUTO) 5.8 % (3-13); PLATELET COUNT 377 10^3/uL (150-450); RED BLOOD COUNT 4.16 10^6/uL (3.72-5.28); RED CELL DISTRIBUTION WIDTH 14.7 % (11.5-14.0); SEGMENTED NEUTROPHILS % (AUTO) 73.6 % (42-78); TOTAL CELLS COUNTED % (AUTO) 100 %; WHITE BLOOD COUNT 7.9 10^3/uL (4.0-10.5)
[2019-03-03 10:21] LABS: ALBUMIN 4.3 g/dL (3.5-5.0); ALKALINE PHOSPHATASE 131 U/L (38-126); AMYLASE 77 U/L (30-110); ANION GAP 10 (5-19); ASPARTATE AMINO TRANSFERASE 24 U/L (14-36); BILIRUBIN,DIRECT 0.3 mg/dL (0.0-0.4); BILIRUBIN,TOTAL 0.4 mg/dL (0.2-1.3); BLOOD UREA NITROGEN 19 mg/dL (7-20); CALCIUM 10.3 mg/dL (8.4-10.2); CARBON DIOXIDE 27 mmol/L (22-30); CHLORIDE 104 mmol/L (98-107); CHOLESTEROL 277.67 mg/dL (0-200); GLUCOSE 88 mg/dL (75-110); POTASSIUM 4.9 mmol/L (3.6-5.0); TOTAL PROTEIN 7.6 g/dL (6.3-8.2); TRIGLYCERIDES 131 mg/dL (<150)
[2019-03-03 10:31] LABS: DIRECT LDL 167 mg/dL (<100)
[2019-03-03 10:35] LABS: ERYTHROCYTE SEDIMENTATION RATE 57 mm/hr (0-30)
== END ==
LOC: CCC 09:02
DX: E11.8 Type 2 diabetes mellitus with unspecified complications (principal); I10 Essential (primary) hypertension; M60.9 Myositis, unspecified; E11.40 Type 2 diabetes mellitus with diabetic neuropathy, unspecified
CPT/HCPCS: 36415; 80053; 80061; 82150; 82607; 82746; 83036; 83735; 84550; 85025; 85652

== ENCOUNTER → 2019-08-05 | Outpatient (CLI) | payer OTHER ==
[2019-08-05 09:17] LABS: ABSOLUTE BASOPHILS # (AUTO) 0.1 10^3/uL (0.0-0.2); ABSOLUTE EOSINOPHILS # (AUTO) 0.3 10^3/uL (0.0-0.6); ABSOLUTE LYMPHOCYTES (AUTO) 1.7 10^3/uL (0.5-4.7); ABSOLUTE MONOCYTES (AUTO) 0.5 10^3/uL (0.1-1.4); ABSOLUTE NEUT (AUTO) 5.9 10^3/uL (1.7-8.2); BASOPHILS % (AUTO) 0.6 % (0-2); EOSINOPHILS % (AUTO) 3.8 % (0-6); HEMOGLOBIN 12.6 g/dL (12.0-15.5); LYMPHOCYTES % (AUTO) 20.1 % (13-45); MEAN CORPUSCULAR HEMOGLOBIN 31.4 pg (27.0-33.4); MEAN CORPUSCULAR HGB CONC 33.9 g/dL (32.0-36.0); MEAN CORPUSCULAR VOLUME 93 fl (80-97); MONOCYTES % (AUTO) 5.9 % (3-13); PLATELET COUNT 284 10^3/uL (150-450); RED CELL DISTRIBUTION WIDTH 14.8 % (11.5-14.0); SEGMENTED NEUTROPHILS % (AUTO) 69.6 % (42-78); TOTAL CELLS COUNTED % (AUTO) 100 %; WHITE BLOOD COUNT 8.5 10^3/uL (4.0-10.5)
[2019-08-05 09:20] LABS: APPEARANCE,URINE SLIGHTLY-CLOUDY; BILIRUBIN,URINE NEGATIVE (NEGATIVE); COLOR,URINE YELLOW; GLUCOSE, URINE NEGATIVE (NEGATIVE); KETONES,URINE NEGATIVE (NEGATIVE); LEUKOCYTE ESTERASE,URINE NEGATIVE (NEGATIVE); NITRITE,URINE NEGATIVE (NEGATIVE); PROTEIN,URINE NEGATIVE (NEGATIVE); URINE SPECIFIC GRAVITY 1.016; UROBILINOGEN,URINE NEGATIVE mg/dL (<2.0)
[2019-08-05 09:40] LABS: ALBUMIN 3.7 g/dL (3.5-5.0); ALKALINE PHOSPHATASE 112 U/L (38-126); ANION GAP 5 (5-19); ASPARTATE AMINO TRANSFERASE 24 U/L (14-36); BILIRUBIN,TOTAL 0.3 mg/dL (0.2-1.3); BLOOD UREA NITROGEN 19 mg/dL (7-20); CALCIUM 9.6 mg/dL (8.4-10.2); CARBON DIOXIDE 26 mmol/L (22-30); CHLORIDE 109 mmol/L (98-107); CHOLESTEROL 144.84 mg/dL (0-200); GLUCOSE 82 mg/dL (75-110); POTASSIUM 4.3 mmol/L (3.6-5.0); TOTAL PROTEIN 6.7 g/dL (6.3-8.2); TRIGLYCERIDES 102 mg/dL (<150)
[2019-08-05 09:51] LABS: DIRECT LDL 62 mg/dL (<100)
== END ==
LOC: CCC 08:03
PROVIDERS: ATTEND Family Medicine
DX: E11.8 Type 2 diabetes mellitus with unspecified complications (principal); I10 Essential (primary) hypertension; E11.40 Type 2 diabetes mellitus with diabetic neuropathy, unspecified; M60.9 Myositis, unspecified
CPT/HCPCS: 36415; 80053; 80061; 81001; 83036; 84443; 85025

== ENCOUNTER 2019-09-03 20:21 | Observation (INO) | payer SELFPAY ==
[2019-09-03] MEDS ORDERED: NITROGLYCERIN 2% OINTMENT 1 GM PACKET TP ONE (20:57)
--- NOTE | 2019-09-03 21:33 | RADIOLOGY REPORT (SQ) ---
XR CHEST 1 VIEW CLINICAL STATEMENT: chest pain COMPARISON: 04/22/2018 FINDINGS: Cardiomediastinal silhouette is within normal limits. There is no focal lung consolidation or pleural effusion. No evidence of pulmonary edema or pneumothorax. IMPRESSION: No acute cardiopulmonary disease.
[2019-09-03 22:59] LABS: ABSOLUTE BASOPHILS # (AUTO) 0.1 10^3/uL (0.0-0.2); ABSOLUTE EOSINOPHILS # (AUTO) 0.3 10^3/uL (0.0-0.6); ABSOLUTE LYMPHOCYTES (AUTO) 2.8 10^3/uL (0.5-4.7); ABSOLUTE MONOCYTES (AUTO) 0.6 10^3/uL (0.1-1.4); ABSOLUTE NEUT (AUTO) 8.2 10^3/uL (1.7-8.2); ALBUMIN 3.8 g/dL (3.5-5.0); ALKALINE PHOSPHATASE 99 U/L (38-126); ANION GAP 9 (5-19); ASPARTATE AMINO TRANSFERASE 26 U/L (14-36); BASOPHILS % (AUTO) 0.8 % (0-2); BILIRUBIN,TOTAL 0.1 mg/dL (0.2-1.3); BLOOD UREA NITROGEN 23 mg/dL (7-20); CALCIUM 9.3 mg/dL (8.4-10.2); CARBON DIOXIDE 23 mmol/L (22-30); CHLORIDE 102 mmol/L (98-107); EOSINOPHILS % (AUTO) 2.1 % (0-6); GLUCOSE 77 mg/dL (75-110); HEMATOCRIT 37.1 % (36.0-47.0); HEMOGLOBIN 12.2 g/dL (12.0-15.5); LYMPHOCYTES % (AUTO) 23.7 % (13-45); MEAN CORPUSCULAR HEMOGLOBIN 31.1 pg (27.0-33.4); MEAN CORPUSCULAR HGB CONC 32.9 g/dL (32.0-36.0); MEAN CORPUSCULAR VOLUME 95 fl (80-97); PLATELET COUNT 264 10^3/uL (150-450); RED BLOOD COUNT 3.92 10^6/uL (3.72-5.28); RED CELL DISTRIBUTION WIDTH 14.5 % (11.5-14.0); SEGMENTED NEUTROPHILS % (AUTO) 68.4 % (42-78); TOTAL CELLS COUNTED % (AUTO) 100 %; TOTAL PROTEIN 6.7 g/dL (6.3-8.2)
[2019-09-03] MEDS ORDERED: LIDOCAINE 2% VISCOUS SOLN 15 ML UDCUP PO ONE (23:29)
[2019-09-03] MEDS ORDERED: METOCLOPRAMIDE HCL ORAL SOLN 10 MG/10 ML UDCUP PO ONE (23:30)
[2019-09-03] MEDS ORDERED: MAG HYDROX/AL HYDROX/SIMETH SUSP 30 ML UDCUP PO ONE (23:30)
--- NOTE | 2019-09-04 00:23 | ER Document Report ---
Entered by MAICOL POWELL SCRIBE 09/03/192053 Acting as scribe for:DIGNA GROSS IV, MD ED General - General Chief Complaint: Chest Pain Stated Complaint: CHEST PAIN Primary Care Provider: [facility] [NO LOCAL MD] - Follow up as needed Mode of Arrival: Medic Information source: Patient Notes: This 59 year old female patient with a history of DM, HTN, HLD, and tobacco use brought in by EMS from home presents to the ED today with complaints of sternal chest pain with associated nausea that started about x90 minutes prior to arrival. Patient states that she was sitting down watching tv and about to eat dinner when the symptoms started. Patient reports that the pain was 5/5 initially and felt like someone was sitting on her chest. No radiation. She notes that she took x4 81 mg Aspirin prior to EMS arrival. She states that she received x2 sprays of Nitro that provided relief eventually in addition to Fentanyl via EMS. Pain is now 4/5 at this time. Denies diaphoresis, shortness of breath, dizziness, or headache. TRAVEL OUTSIDE OF THE [place] IN LAST 30 DAYS: No - Related Data Allergies/Adverse Reactions: IVP contrast dye Allergy (Uncoded 09/03/19 20:40) Hives Past Medical History - General Information source: Patient, [facility] Records - Social History Smoking Status: Current Every Day Smoker Cigarette use (# per day): Yes Chew tobacco use (# tins/day): No Smoking Education Provided: No Lives with: Spouse/Significant other Family History: Reviewed & Not Pertinent, CAD, Malignancy Patient has suicidal ideation: No Patient has homicidal ideation: No - Past Medical History Cardiac Medical History: Reports: Hx Hypercholesterolemia, Hx Hypertension Pulmonary Medical History: Reports: Hx Bronchitis - "At least twice a year" , Hx COPD Endocrine Medical History: Reports: Hx Diabetes Mellitus Type 1 Past Surgical History: Reports: Hx Appendectomy, Hx Orthopedic Surgery - 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 denies: Diaphoresis EENT: No symptoms reported Cardiovascular: See HPI, Chest pain. denies: Dizziness Respiratory: See HPI. denies: Short of breath Gastrointestinal: See HPI, Nausea Genitourinary: No symptoms reported Female Genitourinary: No symptoms reported Musculoskeletal: No symptoms reported Skin: No symptoms reported Hematologic/Lymphatic: No symptoms reported Neurological/Psychological: See HPI. denies: Headaches -: Yes All other systems reviewed and negative Physical Exam - Vital signs Vitals: Temp 97.8 F 09/03/19 20:41 - General General appearance: Alert In distress: None - HEENT Head: Normocephalic, Atraumatic Eyes: Normal Pupils: PERRL - Respiratory Respiratory status: No respiratory distress Chest status: Nontender Breath sounds: Normal Chest palpation: Normal - Cardiovascular Rhythm: Regular Heart sounds: Normal auscultation Murmur: No Friction rub: No Gallop: None auscultated - Abdominal Inspection: Normal Distension: No distension Bowel sounds: Normal Tenderness: Nontender - Abdomen soft Organomegaly: No organomegaly - Back Back: Normal, Nontender - Extremities General upper extremity: Normal inspection General lower extremity: Normal inspection - Neurological Neuro grossly intact: Yes Orientation: AAOx4 Micro Coma Scale Eye Opening: Spontaneous Micro Coma Scale Verbal: Oriented Micro Coma Scale Motor: Obeys Commands Paul Coma Scale Total: 15 - Psychological Associated symptoms: Normal affect, Normal mood - Skin Skin Temperature: Warm Skin Moisture: Dry Skin Color: Normal Course - Re-evaluation Re-evalutation: 09/04/19 03:58 Patient states she is getting some relief after Toradol. Results of ED MSE discussed with patient. Given the patient's risk factors this MD recommended that the patient be admitted for chest pain rule out. Patient was agreeable with this. All questions were answered. - Vital Signs Vital signs: Temp Pulse Resp BP Pulse Ox 97.8 F 09/03/19 20:41 - Laboratory Result Diagrams: 09/03/19 20:37 09/03/19 20:37 Laboratory results interpreted by me: 09/03/19 09/03/19 20:37 20:37 WBC 12.0 H RDW 14.5 H Sodium 133.6 L BUN 23 H Est GFR ( Amer) 59 L Est GFR (MDRD) Non-Af 48 L Total Bilirubin 0.1 L - EKG Interpretation by Me Additional EKG results interpreted by me: 09/04/19 02:50 EKG obtained on 09/03/2019 at 2124 hrs. was interpreted by this MD. Findings: Normal sinus rhythm rate 74, normal axis, P waves preceding QRS complexes, QRS complexes appear narrow, there are no obvious patterns of ST segment elevation or depression present to suggest acute myocardial ischemia or infarction. Impression: Normal sinus rhythm with nonspecific ST segments. - Consults Dr. Ruby Time consulted: 03:50 - Dr. Ruby agreed to admit pt Reason for consultation: 09/04/19 03:59 chest pain, multiple risk factors Consulted provider: will see as inpatient Discharge - Discharge Clinical Impression: Chest pain Qualifiers: Chest pain type: unspecified Qualified Code(s): R07.9 - Chest pain, unspecified Condition: Stable Disposition: ADMITTED OBSERVATION Admitting Provider: Tung (Hospitalist) Unit Admitted: Telemetry [facility]: [facility] [NO [facility]AL MD] - Follow up as needed I personally performed the services described in the documentation, reviewed and edited the documentation which was dictated to the scribe in my presence, and it accurately records my words and actions.
--- NOTE | 2019-09-04 00:34 | EKG REPORT ---
SEVERITY:- NORMAL ECG - SINUS RHYTHM : Confirmed by: Phoebe Mccracken 04-Sep-2019 00:34:04
[2019-09-04] MEDS ORDERED: KETOROLAC TROMETHAMINE INJ/PF 30 MG/1 ML SDV IV ONE (02:06)
[2019-09-04] MEDS ORDERED: INSULIN REG, HUMAN 100 UNIT/ML 3 ML VIAL (PYX) SUBCUT PRN (04:12)
[2019-09-04] MEDS ORDERED: MORPHINE SULFATE 10 MG/ML INJ IV PRN ×4 (04:12→06:32)
[2019-09-04] MEDS ORDERED: NICOTINE 21 MG/24 HR PATCH.TD24 TD PRN (04:12)
[2019-09-04] MEDS ORDERED: PROMETHAZINE HCL INJ 25 MG/1 ML VIAL IV PRN (04:12)
[2019-09-04] MEDS ORDERED: ACETAMINOPHEN 325 MG TABLET PO PRN (04:12)
[2019-09-04] MEDS ORDERED: LEVALBUTEROL HCL NEB 0.63 MG/3 ML AMPUL NEB PRN (04:12)
[2019-09-04] MEDS ORDERED: LORAZEPAM INJ 2 MG/1 ML VIAL IV PRN (04:12)
[2019-09-04] MEDS ORDERED: MAGNESIUM HYDROXIDE SUSP 30 ML UDCUP PO PRN (04:12)
[2019-09-04] MEDS ORDERED: MAG HYDROX/AL HYDROX/SIMETH SUSP 30 ML UDCUP PO PRN (04:12)
[2019-09-04] MEDS ORDERED: MELATONIN 5 MG TABLET PO PRN (04:12)
[2019-09-04] MEDS ORDERED: GUAIFENESIN SYRP 200 MG/10 ML UDC PO PRN (04:12)
--- NOTE | 2019-09-04 05:57 | PDOC H&P ---
History of Present Illness Admission Date/PCP: 09/04/2019 03:48 HARRY ECHOLS MD Patient complains of: Chest pain History of Present Illness: ISRAEL JACKSON is a 59 year old female who presented emergency room with acute chest pain. She admits the sudden onset of constant, severe, nonradiating substernal chest pressure/pain while sitting at rest about 1-1/2 hours prior to her arrival in the emergency room. The pain was accompanied by nausea. She denies other associated or accompanying signs and symptoms. She admits numerous prior similar episodes related to stress. She has not identified any aggravating or ameliorating factors for her chest pain. Her pain continued throughout her EMS journey to the hospital despite receiving aspirin, nitroglycerin and oxygen, until she received fentanyl which completely relieved her pain. In the emergency room she continued to have severe chest pain despite being treated with nitroglycerin paste, a GI cocktail and Toradol. Patient's EK G showed no evidence of myocardial ischemia or injury and her cardiac enzymes were negative x2. She was subsequently admitted to observation status on telemetry for further evaluation treatment. Past Medical History Cardiac Medical History: Reports: Hyperlipidema, Hypertension, Other - Cardiac arrest related to diabetic ketoacidosis Denies: Atrial Fibrillation, Congestive Heart Failure, Coronary Artery Disease, DVT, Myocardial Infarction, Pulmonary Embolism Pulmonary Medical History: Reports: Bronchitis, Chronic Obstructive Pulmonary Disease (COPD) Denies: Asthma, Pneumonia EENT Medical History: Denies: Cataracts, Ears - Hearing aids Neurological Medical History: Denies: Hemorrhagic CVA, Ischemic CVA, Seizures Endocrine Medical History: Reports: Diabetes Mellitus Type 2 Denies: Diabetes Mellitus Type 1, Hyperthyroidism, Hypothyroidism, Obesity Renal/ Medical History: Denies: Chronic Kidney Disease, Nephrolithiasis Malignancy Medical History: Reports: None GI Medical History: Denies: Cirrhosis, Crohn's Disease, Gastroesophageal Reflux Disease, Hepatitis, Peptic Ulcer Disease, Ulcerative Colitis Musculoskeltal Medical History: Denies: Arthritis, Gout Skin Medical History: Denies: Eczema, Psoriasis Psychiatric Medical History: Reports: Tobacco Dependency Denies: Alcohol Dependency, Substance Abuse Traumatic Medical History: Reports: None Hematology: Reports: Anemia Denies: Bleeding Tendencies Infectious Medical History: Reports: None Past Surgical History Past Surgical History: Reports: Appendectomy, Tubal Ligation, Vascular Surgery - 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 Social History Information Source: Patient Lives with: Spouse/Significant other Smoking Status: Current Every Day Smoker Electronic Cigarette use?: No Frequency of Alcohol Use: None Hx Recreational Drug Use: No Drugs: None Hx Prescription Drug Abuse: No - Advance Directive Resuscitation Status: Full Code Surrogate healthcare decision maker:: Suresh Jackson Family History Family History: CAD, Malignancy Parental Family History Reviewed: Yes Children Family History Reviewed: No Sibling(s) Family History Reviewed.: Yes Medication/Allergy Home Medications: Amitriptyline HCl [Elavil 25 mg Tablet] 25 mg PO QHS 04/29/18 Amlodipine Besylate [Norvasc 5 mg Tablet] 5 mg PO DAILY 04/29/18 Aspirin [Ecotrin 81 mg EC Tablet] 81 mg PO DAILY 04/29/18 Atorvastatin Calcium [Lipitor 40 mg Tablet] 40 mg PO QHS 04/29/18 Gabapentin [Neurontin 300 mg Capsule] 600 mg PO Q12 04/29/18 Insulin Aspart [Novolog Flexpen] 0 unit SQ .SLIDING SCALE 04/29/18 Insulin NPH Hum/Reg Insulin Hm [Novolin 70-30 Flexpen] 15 unit SQ Q12 04/29/18 Lisinopril [Zestril] 20 mg PO DAILY 04/29/18 Lovastatin [Mevacor] 20 mg PO QHS 04/29/18 Nitroglycerin 0.4 mg PO Q5MP PRN 04/29/18 Oxycodone HCl/Acetaminophen [Percocet 5-325 mg Tablet] 1 tab PO DAILYP PRN 04/29/18 Vancomycin HCl [Vancocin HCl] 125 mg PO Q6H 10 Days #40 capsule 05/02/18 Allergies/Adverse Reactions: IVP contrast dye Allergy (Uncoded 09/03/19 20:40) Hives Review of Systems Constitutional: ABSENT: anorexia, fever(s) Eyes: ABSENT: visual disturbances, other - Eye pain Ears: ABSENT: hearing changes, other - ear pain Nose, Mouth, and Throat: ABSENT: headache(s), sore throat Cardiovascular: PRESENT: as per HPI, chest pain. ABSENT: dyspnea on exertion, edema, orthropnea, palpitations Respiratory: ABSENT: cough, dyspnea Gastrointestinal: PRESENT: as per HPI, nausea. ABSENT: abdominal pain, constipation, diarrhea, vomiting Genitourinary: ABSENT: dysuria, hematuria Musculoskeletal: ABSENT: back pain, joint swelling Integumentary: ABSENT: pruritus, rash Neurological: ABSENT: confusion, convulsions, focal weakness, memory loss, syncope Psychiatric: ABSENT: anxiety, depression Endocrine: ABSENT: cold intolerance, heat intolerance Hematologic/Lymphatic: ABSENT: easy bleeding, easy bruising Allergic/Immunologic: ABSENT: seasonal rhinorrhea Physical Exam Vital Signs: Temp Pulse Resp BP Pulse Ox 97.8 F 09/03/19 20:41 Intake & Output 09/02/19 09/03/19 09/04/19 23:59 23:59 23:59 Weight 89.9 kg General appearance: PRESENT: no acute distress, cooperative Head exam: PRESENT: atraumatic, normocephalic Eye exam: PRESENT: conjunctiva pink. ABSENT: conjunctival injection, scleral icterus Ear exam: PRESENT: normal external ear exam. ABSENT: bleeding, drainage Mouth exam: PRESENT: dry mucosa, neck supple Neck exam: ABSENT: thyromegaly, tracheal deviation Respiratory exam: PRESENT: clear to auscultation jesusita, symmetrical, unlabored Cardiovascular exam: PRESENT: RRR. ABSENT: clicks, gallop, rubs Pulses: PRESENT: normal radial pulses, normal dorsalis pedis pul Vascular exam: PRESENT: normal capillary refill. ABSENT: pallor GI/Abdominal exam: PRESENT: normal bowel sounds, soft. ABSENT: tenderness Rectal exam: PRESENT: deferred Extremities exam: ABSENT: joint swelling, pedal edema Musculoskeletal exam: ABSENT: deformity, dislocation Neurological exam: PRESENT: alert, oriented to person, oriented to place, oriented to time, oriented to situation, CN II-XII grossly intact. ABSENT: motor sensory deficit Psychiatric exam: PRESENT: appropriate affect, normal mood Skin exam: PRESENT: dry, intact, warm. ABSENT: jaundice, rash, urticaria Results Laboratory Results: 09/03/19 20:37 09/03/19 20:37 09/03/19 09/03/19 20:37 20:37 WBC 12.0 H RBC 3.92 Hgb 12.2 Hct 37.1 MCV 95 MCH 31.1 MCHC 32.9 RDW 14.5 H Plt Count 264 Seg Neutrophils % 68.4 Sodium 133.6 L Potassium 4.0 Chloride 102 Carbon Dioxide 23 Anion Gap 9 BUN 23 H Creatinine 1.14 Est GFR ( Amer) 59 L Glucose 77 Calcium 9.3 Total Bilirubin 0.1 L AST 26 Alkaline Phosphatase 99 Total Protein 6.7 Albumin 3.8 Lipase 64.8 09/03/19 09/04/19 20:37 02:07 Troponin I < 0.012 < 0.012 Impressions: Chest X-Ray 09/03/19 20:57 IMPRESSION: No acute cardiopulmonary disease. Assessment and Plan - Diagnosis (1) Chest pain Qualifiers: Chest pain type: unspecified Qualified Code(s): R07.9 - Chest pain, unspecified Is this a current diagnosis for this admission?: Yes (2) Diabetes mellitus type 2 in nonobese Is this a current diagnosis for this admission?: Yes (3) Hypertension Qualifiers: Hypertension type: essential hypertension Qualified Code(s): I10 - Essential (primary) hypertension Is this a current diagnosis for this admission?: Yes (4) Peripheral vascular disease in diabetes mellitus Is this a current diagnosis for this admission?: Yes (5) Tobacco abuse Is this a current diagnosis for this admission?: Yes - Plan Summary Summary: Patient is admitted to observation status on the telemetry unit where she will receive routine supportive and symptomatic cares. A cardiology consultation with Dr. Ibrahim will be obtained. Patient will be treated with morphine sulfate 2 to 4 mg IV every 2 hours as needed for chest pain. She will receive Ativan 1 mg IV every 4 hours as needed for anxiety or restlessness. Serial car diac enzymes will be completed. A lipid profile, thyroid profile and hemoglobin A1c will be obtained. CBCs, metabolic profiles, magnesium levels and additional laboratory and/or radiographic evaluations will be obtained as needed. Before meals and at bedtime Accu-Cheks will be performed with sliding scale insulin for hyperglycemia and a hypoglycemic protocol in place. Smoking cessation is advi sed and counseled briefly at the bedside. A nicotine replacement patch is available for the patient's use, if desired. Patient will be placed on a cardiac and diabetic restricted diet. - Time Time Spent with patient: 15-24 minutes Smoking Cessation Education: 3 to 10 minutes Medications reviewed and adjusted accordingly: Yes Anticipated Discharge Disposition: Home, Self Care Anticipated Discharge: within 36 hours - Inpatient Certification Based on my medical assessment, after consideration of the patient's comorbidities, presenting symptoms, or acuity I expect that the services needed warrant INPATIENT care.: No I certify that my determination is in accordance with my understanding of Medicare's requirements for reasonable and necessary INPATIENT services [42 CFR 412.3e].: No
[2019-09-04] MEDS: HEPARIN SOD (PORCINE) 5,000 UNIT/ML 1 ML VIAL SUBCUT SCH ×2 (07:00→14:24)
[2019-09-04] MEDS: NITROGLYCERIN 2% OINTMENT 1 GM PACKET TP SCH ×3 (07:01→17:27)
[2019-09-04 07:47] LABS: CREATINE KINASE MB 2.25 ng/mL (<4.55)
[2019-09-04 07:50] LABS: TROPONIN I < 0.012 ng/mL
--- NOTE | 2019-09-04 07:50 | EKG REPORT ---
SEVERITY:- OTHERWISE NORMAL ECG - SINUS RHYTHM VENTRICULAR PREMATURE COMPLEX : Confirmed by: Phoebe Mccracken 04-Sep-2019 07:49:33
[2019-09-04] MEDS: SUCRALFATE 1 GM TABLET PO SCH ×3 (09:57→17:26)
[2019-09-04] MEDS: METOCLOPRAMIDE HCL 10 MG TABLET PO SCH ×3 (09:57→17:26)
[2019-09-04] MEDS: DOCUSATE SODIUM 100 MG CAPSULE PO SCH ×2 (09:59→17:26)
[2019-09-04] MEDS ORDERED: PANTOPRAZOLE SODIUM 40 MG VIAL IV SCH (10:00)
[2019-09-04] MEDS ORDERED: FAMOTIDINE 20 MG TABLET PO SCH (10:00)
--- NOTE | 2019-09-04 11:11 | PDOC CONSULTATION ---
Consultation Consult Date: 09/04/19 Attending physician:: CYN MAYO Provider Consulted: SUMI BLANCHARD Consult reason:: CP History of Present Illness Admission Date/PCP: 09/04/19 04:18 HARRY ECHOLS MD History of Present Illness: ISRAEL DIA is a 59 year old female with history of hypertension, hyperlipidemia, type 1 diabetes, peripheral vascular disease and peripheral neuropathy who is consulted to our service for evaluation of chest pain. The patient presented to the emergency room yesterday with acute chest pain. Her pain was of sudden onset and constant in nature, without radiation and while sitting at rest. The pain did not radiate and was not associated with shortness of breath, palpitations, diaphoresis, syncope or presyncope. It is noted in the chart that her pain was relieved with fentanyl. Her initial EKG was negative for ischemia. She has remained hemodynamically stable since admission. This morning she continues to have her index discomfort which is actually reproducible with palpation of the xiphoid process/epigastric area. She ruled out for ACS with 3 sets of cardiac troponins which were negative. Physical exam on 09/04/2019: GENERAL: Pleasant and conversational. Oriented x3 with normal mood. Not in acute distress. Well groomed and well developed. HEENT: Normocephalic, atraumatic. Pupils equal. Sclerae anicteric. Oropharynx moist. NECK: No JVD. No carotid bruits. LUNGS: Clear to auscultation bilaterally. Normal respiratory effort without the use of accessory muscles or intercostal retractions. CARDIOVASCULAR: Regular rate and rhythm, normal S1 and S2 without murmurs, rubs, or gallops. PMI not displaced. ABDOMEN: No masses or tenderness to palpation. No bruit. No splenomegaly or hepatomegaly. No abdominal aorta bruit noted. EXTREMITIES: No edema, no cyanosis, no clubbing. +2 pulses femoral and pedal pulses bilaterally. SKIN: No lesions or rashes. MUSCULOSKELETAL: Index chest discomfort was reproduced by palpation of the xiphoid process/epigastric area.. NEUROLOGIC: Nonfocal. No gross sensory or motor deficits bilateral upper or lower extremities. Past Medical History Cardiac Medical History: Reports: Hyperlipidema, Hypertension, Other - Cardiac arrest related to diabetic ketoacidosis Denies: Atrial Fibrillation, Congestive Heart Failure, Coronary Artery Disease, DVT, Myocardial Infarction, Pulmonary Embolism Pulmonary Medical History: Reports: Bronchitis, Chronic Obstructive Pulmonary Disease (COPD) Denies: Asthma, Pneumonia EENT Medical History: Denies: Cataracts, Ears - Hearing aids Neurological Medical History: Denies: Hemorrhagic CVA, Ischemic CVA, Seizures Endocrine Medical History: Reports: Diabetes Mellitus Type 2 Denies: Diabetes Mellitus Type 1, Hyperthyroidism, Hypothyroidism, Obesity Renal/ Medical History: Denies: Chronic Kidney Disease, Nephrolithiasis Malignancy Medical History: Reports: None GI Medical History: Denies: Cirrhosis, Crohn's Disease, Gastroesophageal Reflux Disease, Hepatitis, Peptic Ulcer Disease, Ulcerative Colitis Musculoskeltal Medical History: Denies: Arthritis, Gout Skin Medical History: Denies: Eczema, Psoriasis Psychiatric Medical History: Reports: Tobacco Dependency Denies: Alcohol Dependency, Substance Abuse Traumatic Medical History: Reports: None Hematology: Reports: Anemia Denies: Bleeding Tendencies Infectious Medical History: Reports: None Past Surgical History Past Surgical History: Reports: Appendectomy, Orthopedic Surgery, Tubal Ligation, Vascular Surgery - 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, Other - right 3rd tow amputation for gangrene Social History Lives with: Spouse/Significant other Smoking Status: Current Every Day Smoker Electronic Cigarette use?: No Frequency of Alcohol Use: None Hx Recreational Drug Use: No Drugs: None Hx Prescription Drug Abuse: No - Advance Directive Resuscitation Status: Full Code Family History Family History: CAD, Malignancy Parental Family History Reviewed: Yes Children Family History Reviewed: Yes Sibling(s) Family History Reviewed.: Yes Medication/Allergy Home Medications: Amitriptyline HCl [Elavil 25 mg Tablet] 25 mg PO QHS 04/29/18 Aspirin [Ecotrin 81 mg EC Tablet] 81 mg PO DAILY 04/29/18 Gabapentin [Neurontin 300 mg Capsule] 600 mg PO Q8 04/29/18 Insulin Aspart [Novolog Flexpen] 0 unit SQ .SLIDING SCALE 04/29/18 Insulin NPH Hum/Reg Insulin Hm [Novolin 70-30 Flexpen] 15 unit SQ Q12 04/29/18 Lisinopril [Zestril] 20 mg PO DAILY 04/29/18 Atorvastatin Calcium [Lipitor 80 mg Tablet] 80 mg PO QHS 09/04/19 Allergies/Adverse Reactions: Iodinated Contrast Media Allergy (Intermediate, Verified 09/04/19 07:08) Hives Physical Exam Vital Signs: Temp Pulse Resp BP Pulse Ox 97.6 F 77 16 147/61 H 97 09/04/19 05:26 09/04/19 05:26 09/04/19 05:26 09/04/19 05:26 09/04/19 05:26 Intake & Output 09/03/19 09/04/19 09/05/19 06:59 06:59 06:59 Intake Total 300 Output Total 0 Balance 300 Weight 88.1 kg Results Laboratory Results: 09/03/19 20:37 09/03/19 20:37 09/03/19 09/03/19 20:37 20:37 WBC 12.0 H RBC 3.92 Hgb 12.2 Hct 37.1 MCV 95 MCH 31.1 MCHC 32.9 RDW 14.5 H Plt Count 264 Seg Neutrophils % 68.4 Sodium 133.6 L Potassium 4.0 Chloride 102 Carbon Dioxide 23 Anion Gap 9 BUN 23 H Creatinine 1.14 Est GFR ( Amer) 59 L Glucose 77 Calcium 9.3 Total Bilirubin 0.1 L AST 26 Alkaline Phosphatase 99 Total Protein 6.7 Albumin 3.8 Lipase 64.8 09/03/19 09/04/19 09/04/19 20:37 02:07 06:59 Creatine Kinase 98 CK-MB (CK-2) Troponin I < 0.012 < 0.012 09/04/19 06:59 Creatine Kinase CK-MB (CK-2) 2.25 Troponin I < 0.012 Impressions: Chest X-Ray 09/03/19 20:57 IMPRESSION: No acute cardiopulmonary disease. 09/03/19 20:37 09/03/19 20:37 MCV 95 fl (80-97) 09/03/19 20:37 MCH 31.1 pg (27.0-33.4) 09/03/19 20:37 MCHC 32.9 g/dL (32.0-36.0) 09/03/19 20:37 RDW 14.5 % (11.5-14.0) H 09/03/19 20:37 Seg Neutrophils % 68.4 % (42-78) 09/03/19 20:37 Chloride 102 mmol/L (98-107) 09/03/19 20:37 Carbon Dioxide 23 mmol/L (22-30) 09/03/19 20:37 Anion Gap 9 (5-19) 09/03/19 20:37 Est GFR ( Amer) 59 (>60) L 09/03/19 20:37 Glucose 77 mg/dL (75-110) 09/03/19 20:37 Calcium 9.3 mg/dL (8.4-10.2) 09/03/19 20:37 Total Bilirubin 0.1 mg/dL (0.2-1.3) L 09/03/19 20:37 AST 26 U/L (14-36) 09/03/19 20:37 Alkaline Phosphatase 99 U/L (38-126) 09/03/19 20:37 Total Protein 6.7 g/dL (6.3-8.2) 09/03/19 20:37 Albumin 3.8 g/dL (3.5-5.0) 09/03/19 20:37 Lipase 64.8 U/L (23-300) 09/03/19 20:37 09/03/19 09/04/19 09/04/19 20:37 02:07 06:59 Creatine Kinase 98 CK-MB (CK-2) Troponin I < 0.012 < 0.012 09/04/19 06:59 Creatine Kinase CK-MB (CK-2) 2.25 Troponin I < 0.012 Current Medication List Generic Name Dose Route Start Last Admin Trade Name Freq PRN Reason Stop Dose Admin Acetaminophen 650 mg 09/04/19 04:12 Tylenol 325 Mg Tablet PO 10/04/19 04:11 Q4HP PRN For headache, pain or fever Al Hydrox/Mg Hydrox/Simethicone 30 ml 09/04/19 04:12 Maalox Plus Susp 30 Udcup PO 10/04/19 04:11 Q6HP PRN HEARTBURN Docusate Sodium 100 mg 09/04/19 10:00 Colace 100 Mg Capsule PO 10/04/19 09:59 BID MARU Famotidine 20 mg 09/04/19 10:00 Pepcid 20 Mg Tablet PO 10/04/19 09:59 Q12 MARU Guaifenesin 200 mg 09/04/19 04:12 Robitussin Syrup 200 Mg/10 Ml Ud Cup PO 10/04/19 04:11 Q4HP PRN COUGH Heparin Sodium (Porcine) 5,000 unit 09/04/19 06:00 09/04/19 07:00 Heparin Inj 5,000 Units/Ml 1 Ml Vial SUBCUT 10/04/19 05:59 5,000 unit Q8 MARU Administration Insulin Human Regular 0 - 15 unit 09/04/19 04:12 Humulin R (Pyxis) Insulin 100 Unit/Ml 3ml SUBCUT 10/04/19 04:11 ACHSP PRN PER PROTOCOL Protocol Levalbuterol HCl 0.63 mg 09/04/19 04:12 Xopenex Neb 0.63 Mg/3 Ml Ampul NEB 10/04/19 04:11 RTQ2HP PRN SHORTNESS OF BREATH Lorazepam 1 mg 09/04/19 04:12 Ativan Inj 2 Mg/1 Ml Vial IV 09/11/19 04:11 Q4HP PRN ANXIETY/AGITATION Magnesium Hydroxide 30 ml 09/04/19 04:12 Milk Of Magnesia 30 Ml Udcup PO 10/04/19 04:11 HSP PRN FOR CONSTIPATION Melatonin 10 mg 09/04/19 04:12 Melatonin 5 Mg Tablet PO 10/04/19 04:11 HSP PRN SLEEP OR INSOMNIA Metoclopramide HCl 10 mg 09/04/19 08:00 Reglan 10 Mg Tablet PO 10/04/19 07:59 ACHS MARU Morphine Sulfate 2 mg 09/04/19 06:31 Morphine 10 Mg/Ml Inj IV 09/11/19 06:30 Q2HP PRN PAIN SCALE OF 2 Morphine Sulfate 3 mg 09/04/19 06:31 Morphine 10 Mg/Ml Inj IV 09/11/19 06:30 Q2HP PRN PAIN SCALE OF 3-4 Morphine Sulfate 4 mg 09/04/19 06:32 Morphine 10 Mg/Ml Inj IV 09/11/19 06:31 Q2HP PRN PAIN SCALE OF 5 Nicotine 1 each 09/04/19 04:12 Nicoderm 21 Mg/24 Hr Transderm Patch TD 10/04/19 04:11 DAILYP PRN WITHDRAWAL SYMPTOMS Nitroglycerin 1 gm 09/04/19 06:00 09/04/19 07:01 Nitrol 2% Ointment 1gm Packet TP 10/04/19 05:59 1 gm Q6 MARU Administration Pantoprazole Sodium 40 mg 09/04/19 10:00 Protonix Iv Inj 40 Mg Vial IV 09/11/19 09:59 Q12 MARU Promethazine HCl 12.5 mg 09/04/19 04:12 Phenergan Inj 25 Mg/1 Ml Vial IV 10/04/19 04:11 Q4HP PRN UNRESOLVED NAUSEA/VOMITING Sodium Chloride 2.5 ml 09/04/19 06:00 09/04/19 07:01 Saline Flush 2.5 Ml Monoject Prefil Syrin IV 10/04/19 05:59 2.5 ml Q8 MARU Administration Sucralfate 1 gm 09/04/19 08:00 Carafate 1 Gm Tablet PO 10/04/19 07:59 ACHS MARU Discontinued Medications Generic Name Dose Route Start Last Admin Trade Name Freq PRN Reason Stop Dose Admin Al Hydrox/Mg Hydrox/Simethicone 30 ml 09/03/19 23:30 09/03/19 23:36 Maalox Plus Susp 30 Udcup PO 09/03/19 23:31 30 ml NOW ONE Administration Ketorolac Tromethamine 30 mg 09/04/19 02:06 09/04/19 02:22 Toradol Inj/Pf 30 Mg/1 Ml Sdv IV 09/04/19 02:07 30 mg NOW ONE Administration Lidocaine HCl 15 ml 09/03/19 23:29 09/03/19 23:36 Xylocaine 2% Viscous Soln 15 Ml Udcup PO 09/03/19 23:30 15 ml NOW ONE Administration Metoclopramide HCl 10 mg 09/03/19 23:30 09/03/19 23:36 Reglan Oral Soln 10 Mg/10 Ml Udcup PO 09/03/19 23:31 10 mg NOW ONE Administration Morphine Sulfate 2 - 4 mg 09/04/19 04:12 Morphine 10 Mg/Ml Inj IV 09/11/19 04:11 Q2HP PRN See protocol Protocol Nitroglycerin 0.5 gm 09/03/19 20:57 09/03/19 21:33 Nitrol 2% Ointment 1gm Packet TP 09/03/19 20:58 0.5 gm NOW ONE Administration Assessment & Plan - Diagnosis (1) Chest pain Qualifiers: Chest pain type: unspecified Qualified Code(s): R07.9 - Chest pain, unspe cified Is this a current diagnosis for this admission?: Yes Plan: The patient ruled out for acute coronary syndrome with 3 sets of negative car diac enzymes. Her chest pain is actually reproducible on exam and noncardiac in etiology. She was seen by Dr. Kline, manager commercial with [facility] however the patient cannot follow-up with him due to insurance problems and would like to establish with Dr. Law. She did have a stress test approximately 1 year ago however I do not have any of those records. Given her significant cardiac risk factors she warrants cardiology follow-up therefore I will set her up with Dr. Law. Recommendations: -Get records from [facility]. -No further inpatient cardiovascular work-up indicated at this point. -We will contact the patient with a follow-up appointment with Dr. Law in our office in [place].
[2019-09-04 12:16] VITALS: BP 145/66
[2019-09-04 12:27] LABS: CREATINE KINASE MB 1.92 ng/mL (<4.55)
[2019-09-04 12:36] LABS: TROPONIN I < 0.012 ng/mL
[2019-09-04] MEDS ORDERED: AMITRIPTYLINE HCL 25 MG TABLET PO SCH (22:00)
[2019-09-04] MEDS ORDERED: ATORVASTATIN CALCIUM 80 MG TABLET PO SCH (22:00)
[2019-09-04] MEDS ORDERED: GABAPENTIN 300 MG CAPSULE PO SCH (22:00)
[2019-09-05] MEDS ORDERED: (PENDING PHARMACY ID) (Lisinopril [Zestril] 20 MG) PO SCH (10:00)
--- NOTE | 2019-09-10 17:07 | PDOC DISCHARGE SUMMARY ---
Impression - Admit/DC Date/PCP Admission Date/Primary Care Provider: 09/04/19 04:18 HARRY ECHOLS MD Discharge Date: 09/04/19 - Discharge Diagnosis (1) Musculoskeletal chest pain Is this a current diagnosis for this admission?: Yes (2) Chest pain Is this a current diagnosis for this admission?: Yes (3) Diabetes mellitus type 2 in nonobese Is this a current diagnosis for this admission?: Yes (4) Hypertension Is this a current diagnosis for this admission?: Yes (5) Peripheral vascular disease in diabetes mellitus Is this a current diagnosis for this admission?: Yes (6) Tobacco abuse Is this a current diagnosis for this admission?: Yes - Additional Information Resuscitation Status: Full Code Discharge Diet: Cardiac Discharge Activity: Activity As Tolerated [facility]: [facility]NO [facility]AL MD] - Follow up as needed DEMETRIA MICHAEL MD [ACTIVE PROVISIONAL STAFF] - Home Medications: Amitriptyline HCl [Elavil 25 mg Tablet] 25 mg PO QHS 04/29/18 Aspirin [Ecotrin 81 mg EC Tablet] 81 mg PO DAILY 04/29/18 Gabapentin [Neurontin 300 mg Capsule] 600 mg PO Q8 04/29/18 Insulin Aspart [Novolog Flexpen] 0 unit SQ .SLIDING SCALE 04/29/18 Lisinopril [Zestril] 20 mg PO DAILY 04/29/18 Atorvastatin Calcium [Lipitor 80 mg Tablet] 80 mg PO QHS 09/04/19 Insulin Degludec [Tresiba Flextouch U-100] 40 unit SQ QAM 09/04/19 Nitroglycerin [Nitrostat 0.4 mg (1/150 Gr) Tabs 25/Bottle] 1 tab SL Q5MP PRN 09/04/19 History of Present Illiness History of Present Illness: ISRAEL DIA is a 59 year old female who presented emergency room with acute chest pain. She admits the sudden onset of constant, severe, nonradiating substernal chest pressure/pain while sitting at rest about 1-1/2 hours prior to her arrival in the emergency room. The pain was accompanied by nausea. She denies other associated or accompanying signs and symptoms. She admits numerous prior similar episodes related to stress. She has not identified any aggravating or ameliorating factors for her chest pain. Her pain continued throughout her EMS journey to the hospital despite receiving aspirin, nitroglycerin and oxygen, until she received fentanyl which completely relieved her pain. In the emergency room she continued to have severe chest pain despite being treated with nitroglycerin paste, a GI cocktail and Toradol. Patient's EKG showed no evidence of myocardial ischemia or injury and her cardiac enzymes were negative x2. She was subsequently admitted to observation status on telemetry for further evaluation treatment. Hospital Course Hospital Course: Patient was admitted to telemetry, started on antiplatelets, statins, beta- blockers, ANIKA, sublingual nitroglycerin IV morphine, troponins trended, and cardiology was consulted. Troponins remained negative, vitals remained stable, as per my conversation with Dr. Ibrahim insulation board head saw operator patient's chest pain was noncardiac as it was reproducible and she did not need any further work-up in the hospital and could be safely discharged home to follow-up with her insulation board head saw operator. Patient insulation board head saw operator is Dr. Kline at [facility] however patient stating that she could not follow-up with him and she wants another insulation board head saw operator. An appointment was obtained for her to see Dr. Nu Malone as outpatient. Physical Exam Vital Signs: Temp Pulse Resp BP Pulse Ox 97.8 F 77 20 145/66 H 99 09/04/19 17:27 09/04/19 17:27 09/04/19 17:27 09/04/19 11:59 09/04/19 17:27 General appearance: PRESENT: no acute distress, obese, well-developed, well- nourished Head exam: PRESENT: atraumatic, normocephalic Respiratory exam: PRESENT: clear to auscultation jesusita. ABSENT: rales, rhonchi, wheezes Cardiovascular exam: PRESENT: RRR, other - Left chest tenderness to palpation.. ABSENT: diastolic murmur, rubs, systolic murmur GI/Abdominal exam: PRESENT: normal bowel sounds, soft. ABSENT: distended, guarding, mass, organolmegaly, rebound, tenderness Neurological exam: PRESENT: alert, awake, oriented to person, oriented to place, oriented to time, oriented to situation, CN II-XII grossly intact. ABSENT: motor sensory deficit Skin exam: PRESENT: dry, intact, warm. ABSENT: cyanosis, rash Results Laboratory Results: WBC 12.0 10^3/uL (4.0-10.5) H 09/03/19 20:37 RBC 3.92 10^6/uL (3.72-5.28) 09/03/19 20:37 Hgb 12.2 g/dL (12.0-15.5) 09/03/19 20:37 Hct 37.1 % (36.0-47.0) 09/03/19 20:37 MCV 95 fl (80-97) 09/03/19 20:37 MCH 31.1 pg (27.0-33.4) 09/03/19 20:37 MCHC 32.9 g/dL (32.0-36.0) 09/03/19 20:37 RDW 14.5 % (11.5-14.0) H 09/03/19 20:37 Plt Count 264 10^3/uL (150-450) 09/03/19 20:37 Lymph % (Auto) 23.7 % (13-45) 09/03/19 20:37 [place] % (Auto) 5.0 % (3-13) 09/03/19 20:37 Eos % (Auto) 2.1 % (0-6) 09/03/19 20:37 Baso % (Auto) 0.8 % (0-2) 09/03/19 20:37 Absolute Neuts (auto) 8.2 10^3/uL (1.7-8.2) 09/03/19 20:37 Absolute Lymphs (auto) 2.8 10^3/uL (0.5-4.7) 09/03/19 20:37 Absolute Monos (auto) 0.6 10^3/uL (0.1-1.4) 09/03/19 20:37 Absolute Eos (auto) 0.3 10^3/uL (0.0-0.6) 09/03/19 20:37 Absolute Basos (auto) 0.1 10^3/uL (0.0-0.2) 09/03/19 20:37 Seg Neutrophils % 68.4 % (42-78) 09/03/19 20:37 Sodium 133.6 mmol/L (137-145) L 09/03/19 20:37 Potassium 4.0 mmol/L (3.6-5.0) 09/03/19 20:37 Chloride 102 mmol/L (98-107) 09/03/19 20:37 Carbon Dioxide 23 mmol/L (22-30) 09/03/19 20:37 Anion Gap 9 (5-19) 09/03/19 20:37 BUN 23 mg/dL (7-20) H 09/03/19 20:37 Creatinine 1.14 mg/dL (0.52-1.25) 09/03/19 20:37 Est GFR ( Amer) 59 (>60) L 09/03/19 20:37 Est GFR (MDRD) Non-Af 48 (>60) L 09/03/19 20:37 Glucose 77 mg/dL (75-110) 09/03/19 20:37 POC Glucose 153 mg/dL (70-110) H 09/04/19 12:00 Calcium 9.3 mg/dL (8.4-10.2) 09/03/19 20:37 Total Bilirubin 0.1 mg/dL (0.2-1.3) L 09/03/19 20:37 Direct Bilirubin 0.0 mg/dL (0.0-0.4) 09/03/19 20:37 Neonat Total Bilirubin Not Reportable 09/03/19 20:37 Neonat Direct Bilirubin Not Reportable 09/03/19 20:37 Neonat Indirect Bili Not Reportable 09/03/19 20:37 AST 26 U/L (14-36) 09/03/19 20:37 ALT 15 U/L (<35) 09/03/19 20:37 Alkaline Phosphatase 99 U/L (38-126) 09/03/19 20:37 Creatine Kinase 110 U/L (30-135) 09/04/19 11:24 CK-MB (CK-2) 1.92 ng/mL (<4.55) 09/04/19 11:24 Troponin I < 0.012 ng/mL 09/04/19 11:24 Total Protein 6.7 g/dL (6.3-8.2) 09/03/19 20:37 Albumin 3.8 g/dL (3.5-5.0) 09/03/19 20:37 Lipase 64.8 U/L (23-300) 09/03/19 20:37 09/03/19 09/04/19 09/04/19 20:37 02:07 06:59 CK-MB (CK-2) 2.25 Troponin I < 0.012 < 0.012 < 0.012 09/04/19 11:24 CK-MB (CK-2) 1.92 Troponin I < 0.012 Impressions: Chest X-Ray 09/03/19 20:57 IMPRESSION: No acute cardiopulmonary disease. Plan Time Spent: Greater than 30 Minutes Stroke Is this a Stroke Patient?: No Acute Heart Failure - Is this a Heart Failure Patient?: No
== END 2019-09-04 17:41 | disposition home or self-care (01) ==
LOC: ER 20:21 → EH 09-04 04:18 → OBSVTOIN 09-04 04:18 → INTOOBSV 09-04 04:18 → 5 09-04 05:21
PROVIDERS: ADMIT Emergency Medicine; ATTEND Internal Medicine
DX: R07.89 Other chest pain (principal); E10.42 Type 1 diabetes mellitus with diabetic polyneuropathy; E10.51 Type 1 diabetes mellitus with diabetic peripheral angiopathy without gangrene; R11.0 Nausea; I10 Essential (primary) hypertension; E78.5 Hyperlipidemia, unspecified; F17.210 Nicotine dependence, cigarettes, uncomplicated; E66.9 Obesity, unspecified; J44.9 Chronic obstructive pulmonary disease, unspecified; D64.9 Anemia, unspecified; Z86.74 Personal history of sudden cardiac arrest; Z79.4 Long term (current) use of insulin; Z79.82 Long term (current) use of aspirin; Z79.899 Other long term (current) drug therapy; Z90.49 Acquired absence of other specified parts of digestive tract; Z89.421 Acquired absence of other right toe(s); Z91.041 Radiographic dye allergy status; Z82.49 Family history of ischemic heart disease and other diseases of the circulatory system
CPT/HCPCS: 93005 ×2; 99285; 96374; 36415 ×2; 82553; 82962; 82550; 83690; 85025; 80053; 84484 ×2; 71045; 93010 ×2; G0378; G0379; J1644; J3490 ×2; J1885; C9113

== ENCOUNTER → 2019-10-10 | Outpatient (CLI) | payer OTHER ==
[2019-10-10 08:30] LABS: ABSOLUTE BASOPHILS # (AUTO) 0.1 10^3/uL (0.0-0.2); ABSOLUTE EOSINOPHILS # (AUTO) 0.3 10^3/uL (0.0-0.6); ABSOLUTE LYMPHOCYTES (AUTO) 1.6 10^3/uL (0.5-4.7); ABSOLUTE MONOCYTES (AUTO) 0.4 10^3/uL (0.1-1.4); ABSOLUTE NEUT (AUTO) 4.5 10^3/uL (1.7-8.2); BASOPHILS % (AUTO) 0.7 % (0-2); EOSINOPHILS % (AUTO) 4.1 % (0-6); HEMATOCRIT 37.3 % (36.0-47.0); HEMOGLOBIN 12.6 g/dL (12.0-15.5); LYMPHOCYTES % (AUTO) 23.5 % (13-45); MEAN CORPUSCULAR HEMOGLOBIN 31.4 pg (27.0-33.4); MEAN CORPUSCULAR HGB CONC 33.9 g/dL (32.0-36.0); MEAN CORPUSCULAR VOLUME 93 fl (80-97); MONOCYTES % (AUTO) 6.2 % (3-13); PLATELET COUNT 284 10^3/uL (150-450); RED BLOOD COUNT 4.02 10^6/uL (3.72-5.28); RED CELL DISTRIBUTION WIDTH 15.1 % (11.5-14.0); SEGMENTED NEUTROPHILS % (AUTO) 65.5 % (42-78); TOTAL CELLS COUNTED % (AUTO) 100 %; WHITE BLOOD COUNT 6.9 10^3/uL (4.0-10.5)
[2019-10-10 08:42] LABS: ALBUMIN 3.8 g/dL (3.5-5.0); ALKALINE PHOSPHATASE 103 U/L (38-126); ANION GAP 6 (5-19); ASPARTATE AMINO TRANSFERASE 27 U/L (14-36); BILIRUBIN,DIRECT 0.3 mg/dL (0.0-0.4); BILIRUBIN,TOTAL 0.5 mg/dL (0.2-1.3); BLOOD UREA NITROGEN 21 mg/dL (7-20); CALCIUM 9.4 mg/dL (8.4-10.2); CARBON DIOXIDE 24 mmol/L (22-30); CHLORIDE 110 mmol/L (98-107); CHOLESTEROL 156.04 mg/dL (0-200); GLUCOSE 95 mg/dL (75-110); POTASSIUM 5.3 mmol/L (3.6-5.0); TOTAL PROTEIN 6.5 g/dL (6.3-8.2); TRIGLYCERIDES 83 mg/dL (<150)
[2019-10-10 08:53] LABS: DIRECT LDL 67 mg/dL (<100)
== END ==
LOC: CCC 07:10
PROVIDERS: ATTEND Family Medicine
DX: R19.7 Diarrhea, unspecified (principal); E11.8 Type 2 diabetes mellitus with unspecified complications; I10 Essential (primary) hypertension
CPT/HCPCS: 36415; 80053; 80061; 85025